=== PATIENT | male | born 1950 | race Two or more races ===

== ENCOUNTER 2023-08-01 14:48 | Emergency (ER) | payer MEDICARE, SELFPAY ==
--- NOTE | ~2023-08-01 | XR_ITS ---
EXAMINATION: XR ABDOMEN KUB CLINICAL INDICATION: Constipation no bowel movement COMPARISON: None available. TECHNIQUE: AP view of the abdomen. FINDINGS: No dilated loops of bowel to suggest obstruction. Mild fecal loading of the sigmoid colon. Degenerative arthropathy of the thoracolumbar and lumbosacral spine as well as bilateral femoral acetabular joints. Visualized portions of the lower chest are unremarkable. Soft tissues are unremarkable. XR/XR abdomen 1V IMPRESSION: 1. No dilated loops of bowel to suggest obstruction. 2. Mild fecal loading of the sigmoid colon.
[2023-08-01 14:57] VITALS: BP 140/89; PULSE 78; RESP 18; TEMP 36.5; O2SAT 99; BMI 23.0
--- NOTE | 2023-08-01 14:57 | ED.GENADULT ---
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 Related Data Previous Rx's Medication Instructions Recorded nitrofurantoin 100 mg PO Q12H 7 days #14 caps 08/01/23 monohydrate/macrocrystals 100 mg capsule (Macrobid) Allergies Allergy/AdvReac Type Severity Reaction Status Date / Time No Known Allergies Allergy Verified 08/01/23 15:00 Review of Systems Review of Systems: Pertinent positives and negatives as stated in [facility] Past Medical History Source: nursing notes reviewed Social History Social History Smoked in Last 30 Days: Yes Use of substances other than those prescribed or required for medical reasons: No Advance Directives: No Advance Directives Information Provided: Yes Physical Exam ED Vital Signs: Vital Signs - 24 hr 08/01/23 14:57 08/01/23 18:43 Temperature 97.7 F 98.3 F Pulse Rate 78 64 Respiratory Rate 18 16 Blood Pressure 140/89 H 175/76 H Pulse Oximetry 99 100 Oxygen Delivery Method Room Air Room Air BMI result Body Mass Index 23.0 VITAL SIGNS: Reviewed. GENERAL: Well developed, well nourished, in no acute distress. HEAD: Normocephalic/atraumatic EYES: PERRLA, EOMI EARS: Ext canals without abnormality NOSE: Nares patent bilateral OROPHARYNX: no oral lesions noted, posterior pharynx clear NECK: Supple, no adenopathy LUNGS: Normal breath sounds. No adventitious sounds or accessory muscle use. SpO2<100> CARDIOVASCULAR: Regular rate and rhythm without noted murmurs ABDOMEN: Soft, suprapubic discomfort, non-distended with bowel sounds. MUSCULOSKELETAL: No tenderness, deformities, or effusions noted on gross inspection. EXTREMITIES: No cyanosis, clubbing or edema. SKIN: Inspection of the skin reveals no rashes NEUROLOGIC: Alert and oriented x 4. Strength and sensation to light touch were grossly intact x 4. Course Course Course Narrative: RME: 72yo M w/PMHx chronic constipation, (noncompliant w/doctors) c/o suprapubic abdominal pain, decreased UOP, urgency & constipation w/o BM x7 days. Admits is not passing. Also reports b/l LE cramping, itching & burning. Denies hematuria, dysuria, N/V. Admits recently moved here from [place] 2 weeks ago BS decreased. Labs, UA, Abdomen XR, bladder scan ordered Full HPI, ROS and PE to be performed by primary ED provider. Medications Administered Discontinued Medications Generic Name Dose Route Start Last Admin Trade Name Freq PRN Reason Stop Dose Admin Nitrofurantoin Macrocrystals 100 mg 08/01/23 19:40 08/01/23 19:51 Nitrofurantoin Monohyd/M-Cryst 100 Mg Capsule PO 08/01/23 19:41 100 mg ONCE ONE Administration Medical Decision Making Medical Decision Making [facility] Narrative: 72-year-old male with history and clinical presentation, DDX: UTI, low clinical suspicion for renal colic or colitis or small bowel obstruction, patient denies any penile discharge so not considering STI and denies any testicular/scrotal pain so no concern at this time for hernia or epididymitis. I reviewed all investigations and hematologic indices are negative for leukocytosis/left shift, no anemia or thrombocytopenia. Chemistry and sees are negative for electrolyte or liver enzyme abnormalities, magnesium is within normal limits and there is no CINDY. Urinalysis demonstrates trace leukocyte esterase and will empirically treat with Macrobid, 1st dose given here in the emergency room and then a paper prescription was provided to the patient for discharge as well as a list of primary care providers. KUB does not indicate obstruction and otherwise my interpretation is in agreement with radiology's impression. Differential Diagnosis Differential Diagnoses: The differential diagnosis associated with the presentation includes Please see the discussion above Admission/Observation Consideration of admission/observation: Escalation of care including admission/observation considered Please see the discussion above Lab Data [facility] Lab Attestation statement: I reviewed the patient's lab results. Please see the discussion above 08/01/23 15:16 08/01/23 15:16 Labs: Lab Results 08/01/23 08/01/23 08/01/23 Range/Units 15:16 15:16 15:16 WBC 7.3 (4.8-10.8) X10*3/uL RBC 4.55 L (4.60-5.80) X10*6/uL Hgb 14.4 (14.0-18.0) g/dl Hct 43.0 (42.0-52.0) % MCV 94.5 (80.0-98.0) fL MCH 31.6 (27.0-33.0) pg MCHC 33.5 (31.0-36.0) g/dl RDW 12.5 (11.0-16.0) % Plt Count 235 (160-400) X10*3/uL MPV 10.1 (9.4-12.4) fL Immature Gran % (Auto) 0.8 H (0.0-0.4) % Neut % (Auto) 64.9 (45-73) % Lymph % (Auto) 21.1 (20-40) % [place] % (Auto) 11.6 H (2-11) % Eos % (Auto) 1.2 (0-4) % Baso % (Auto) 0.4 (0-2) % Lymph # (Auto) 1.5 (1.2-4.9) X10*3/uL [place] # (Auto) 0.8 (0.1-1.2) X10*3/uL Eos # (Auto) 0.1 (0.0-0.4) X10*3/uL Baso # (Auto) 0.0 (0.0-0.2) X10*3/uL Abs Immat Gran (auto) 0.06 H (0.00-0.03) X10*3/uL Absolute Neuts (auto) 4.7 (2.0-8.3) x10*3/uL Absolute Nucleated RBC 0.000 (0.0-0.012) X10*3/uL Nucleated RBC % (auto) 0.0 (0.0-0.2) /100WBC Sodium 140 (135-145) mmol/L Potassium 4.5 (3.3-5.1) mmol/L Chloride 107 (96-108) mmol/L Carbon Dioxide 27 (22-29) mmol/L Anion Gap 11 L (12-20) BUN 18 H (9-16) mg/dL Creatinine 1.04 (0.5-1.4) mg/dL Estim Creat Clear Calc 57.4 Estimated GFR > 60 Random Glucose 81 (60-115) mg/dL Calcium 10.3 H (8.4-10.2) mg/dL Magnesium 2.1 (1.6-2.6) mg/dL Total Bilirubin 0.7 (0.0-1.0) mg/dL Direct Bilirubin 0.2 (0.0-0.5) mg/dL AST 21 (5-37) U/L ALT 18 (0-40) U/L Alkaline Phosphatase 81 (39-117) U/L Total Protein 8.1 H (6.5-8.0) g/dL Albumin 4.4 (3.5-5.0) g/dL Lipase 19 (8-78) U/L Urine Color Dark Yellow Urine Appearance Clear Urine pH 5.5 (5.0-9.0) Ur Specific [place] >= 1.030 H (1.005-1.025) Urine Protein 30 (1+) H (Neg-Trace) mg/dL Urine Glucose (UA) Negative (Negative) mg/dL Urine Ketones Trace (Negative) mg/dL Urine Blood Negative (Negative) Urine Nitrite Negative (Negative) Ur Leukocyte Esterase Trace H (Negative) Urine RBC 0-2 (0-2) /HPF Urine WBC 0-5 (0-5) /HPF Ur Squamous Epith Cells 3-5 (0-2) /HPF Urine Bacteria None Seen (None Seen) Hyaline Casts 3-5 (0-2) /LPF Radiology Impression Discussion of test interpretation with radiology: I have reviewed the radiologist's reading. Radiologist Impression: Please see the discussion above Discharge Plan Discharge Clinical Impression: Acute UTI Patient Disposition: Home, Self-Care Instructions: Urinary Tract Infection in Men (ED) Additional Instructions: 1. Complete todo el ciclo de antibi?ticos seg?n lo indicado. 2. Comience a llamar a los m?dicos para establecer la atenci?n con un proveedor de atenci?n primaria a partir del por la ma?shirley. Regrese a la jose juan de emergencias si los s?ntomas empeoran. 1. Complete the entire course of antibiotics as ordered. 2. Please begin calling physicians to establish care with a primary care provider starting on Thursday morning. Return to the ER for any worsening symptoms. Prescriptions: New nitrofurantoin monohyd/m-cryst [Macrobid] 100 mg capsule 100 mg PO Q12H 7 Days Qty: 14 0RF Rx Instructions: must administer with a meal/food Interventions: ED Discharge Assessment Last Done: 08/01/23 19:52 Discharge Date/Time: 08/01/23 19:56 Print Language: Armenian
[2023-08-01 15:22] LABS: MANUAL DIFF FLAG NO
[2023-08-01 15:24] LABS: Appearance Urine Clear; Color Urine Dark Yellow; Glucose Urine UA Negative (Negative); Leukocyte Esterase Urine Trace (Negative); Nitrite Urine Negative (Negative); PH 5.5 (5.0-9.0); Specific Gravity - Urine >= 1.030 (1.005-1.025); UMIC TRIGGER UACC YES; Urine Blood Negative (Negative); Urine Ketones Trace mg/dL (Negative); Urine Protein 30 (1+) mg/dL (Neg-Trace)
[2023-08-01 15:26] LABS: Bacteria Urine None Seen (None Seen); Basophils Percent Auto 0.4 % (0-2); Eosinophils Absolute Auto 0.1 X10*3/uL (0.0-0.4); Eosinophils Percent Auto 1.2 % (0-4); Hemoglobin 14.4 g/dl (14.0-18.0); Imm Gran Abs Auto 0.06 X10*3/uL (0.00-0.03); Imm Gran Pct Auto 0.8 % (0.0-0.4); Lymphocytes Absolute Auto 1.5 X10*3/uL (1.2-4.9); Lymphocytes Percent Auto 21.1 % (20-40); Mean Corpuscular HGB Conc 33.5 g/dl (31.0-36.0); Mean Corpuscular Hemoglobin 31.6 pg (27.0-33.0); Mean Corpuscular Volume 94.5 fL (80.0-98.0); Mean Platelet Volume 10.1 fL (9.4-12.4); Monocytes Absolute Auto 0.8 X10*3/uL (0.1-1.2); Monocytes Percent Auto 11.6 % (2-11); Neutrophils Absolute Auto 4.7 x10*3/uL (2.0-8.3); Neutrophils Percent Auto 64.9 % (45-73); Platelet Count 235 X10*3/uL (160-400); RBC Urine 0-2 /HPF (0-2); Red Blood Count 4.55 X10*6/uL (4.60-5.80); Red Cell Distribution Width 12.5 % (11.0-16.0); WBC Urine 0-5 /HPF (0-5); White Blood Count 7.3 X10*3/uL (4.8-10.8)
[2023-08-01 15:41] LABS: Alanine Aminotransferase 18 U/L (0-40); Albumin Level 4.4 g/dL (3.5-5.0); Alkaline Phosphatase 81 U/L (39-117); Anion Gap 11 (12-20); Aspartate Amino Transferase 21 U/L (5-37); Bilirubin Direct 0.2 mg/dL (0.0-0.5); Bilirubin Total 0.7 mg/dL (0.0-1.0); Blood Urea Nitrogen 18 mg/dL (9-16); Calcium 10.3 mg/dL (8.4-10.2); Carbon Dioxide 27 mmol/L (22-29); Chloride 107 mmol/L (96-108); Creatinine Clr Calc Pharmacy 57.4; Estimated Glomerular Filt Rate > 60; Glucose Random 81 mg/dL (60-115); Lipase 19 U/L (8-78); Magnesium 2.1 mg/dL (1.6-2.6); Potassium 4.5 mmol/L (3.3-5.1); Sodium 140 mmol/L (135-145); Total Protein 8.1 g/dL (6.5-8.0)
[2023-08-01 18:43] VITALS: BP 175/76; PULSE 64; RESP 16; TEMP 36.8; O2SAT 100
[2023-08-01] MEDS: Nitrofurantoin Monohyd/M-Cryst 100 MG CAPSULE PO (19:51)
== END 2023-08-01 19:56 | disposition home or self-care (01) ==
PROVIDERS: Physician Assistant; Emergency Provider Student in an Organized Health Care Education/Training Program
DX: N39.0 Urinary tract infection, site not specified (principal); R10.30 Lower abdominal pain, unspecified
CPT/HCPCS: 36415; 51798; 74018; 80048; 80076; 81001; 83690; 83735; 85025; 99284

== ENCOUNTER 2024-06-05 15:04 | Emergency (ER) | payer MEDICARE, MEDICAID, SELFPAY ==
--- NOTE | ~2024-06-05 | US_ITS ---
EXAMINATION: US VENOUS ULTRASOUND WITH DOPPLER LOWER EXTREMITY, BILATERAL CLINICAL INFORMATION: lower leg pain, swelling COMPARISON: None available. TECHNIQUE: Ultrasound of the deep veins is performed from the hip to the calf with compression sonography and color and pulse Doppler assessment. Spectral analysis with color-flow imaging is performed. FINDINGS: RIGHT: There is normal venous compression and respiratory variation and augmented flow. The visualized common femoral vein, superficial femoral vein, profunda femoral vein, popliteal vein, and the trifurcation region shows no evidence of deep venous thrombosis. There is no significant popliteal fossa cyst. LEFT: There is normal venous compression and respiratory variation and augmented flow. The visualized common femoral vein, superficial femoral vein, profunda femoral vein, popliteal vein, and the trifurcation region shows no evidence of deep venous thrombosis. There is no significant popliteal fossa cyst. If the patient's symptoms persist, followup ultrasound in 5 days 7 days might be of value to exclude proximal propagation from a non-visualized calf vein. US/US venous duplex LE BI IMPRESSION: No DVT demonstrated in the bilateral lower extremity.
--- NOTE | 2024-06-05 15:06 | ECG_ITS ---
Test Reason : CHEST PAIN Blood Pressure : / mmHG Vent. Rate : 088 BPM Atrial Rate : 088 BPM P-R Int : 130 ms QRS Dur : 084 ms QT Int : 356 ms P-R-T Axes : 054 021 057 degrees QTc Int : 430 ms Normal sinus rhythm Normal ECG No previous ECGs available Referred By: Generic ED Physician Electronically Signed By:Trae Baldwin
[2024-06-05 15:13] VITALS: BP 139/68; PULSE 82; RESP 18; TEMP 37.2; O2SAT 96; BMI 23.3
[2024-06-05 15:25] LABS: MANUAL DIFF FLAG NO
[2024-06-05 15:28] LABS: Basophils Percent Auto 0.5 % (0-2); Eosinophils Absolute Auto 0.1 X10*3/uL (0.0-0.4); Eosinophils Percent Auto 1.4 % (0-4); Hematocrit 41.4 % (42.0-52.0); Hemoglobin 13.9 g/dl (14.0-18.0); Imm Gran Abs Auto 0.04 X10*3/uL (0.00-0.03); Imm Gran Pct Auto 0.6 % (0.0-0.4); Lymphocytes Percent Auto 30.6 % (20-40); Mean Corpuscular HGB Conc 33.6 g/dl (31.0-36.0); Mean Corpuscular Hemoglobin 31.1 pg (27.0-33.0); Mean Corpuscular Volume 92.6 fL (80.0-98.0); Mean Platelet Volume 10.1 fL (9.4-12.4); Monocytes Absolute Auto 0.5 X10*3/uL (0.1-1.2); Monocytes Percent Auto 7.7 % (2-11); Neutrophils Absolute Auto 3.9 x10*3/uL (2.0-8.3); Neutrophils Percent Auto 59.2 % (45-73); Platelet Count 214 X10*3/uL (160-400); Red Blood Count 4.47 X10*6/uL (4.60-5.80); Red Cell Distribution Width 12.8 % (11.0-16.0); White Blood Count 6.6 X10*3/uL (4.8-10.8)
[2024-06-05 15:34] LABS: INTERNATIONAL NORM RATIO 0.9 (0.9-1.1); Prothrombin Time 11.3 SEC (11.1-13.3)
--- NOTE | 2024-06-05 15:34 | ED_ITS ---
HPI - Chest Pain General Chief Complaint: Chest Pain Stated Complaint: Chest pain Time Seen by Provider: 06/05/24 15:34 Source: patient and sign language interpreter (all interactions with this patient were facilitated with an [facility] [employer] interpreter) Mode of arrival: ambulatory Limitations: language barrier (all interactions with this patient were facilitated with an [facility] [employer] interpreter) History of Present Illness ED Provider: Maureen Medellin PA-C HPI narrative: Patient is a 73 year old assigned male at with a history of tobacco smoking presenting to the emergency department today with midsternal chest pain, bilateral lower leg pain when walking, and urine dribbling. Patient states that over the last few days he has had intermittent chest pain. Patient states that his legs have been bother him for months. Patient states that he also has been having some urine dribbling even after he urinates. Patient denies any dizziness, lightheadedness, abdominal pain, nausea, vomiting, fever, chills, blurry vision, double vision, loss of vision, difficulty breathing, shortness of breath, back pain, night sweats, pain with urination, increased urinary urgency, blood in his urine or stool, syncope or a near syncopal episode, recent trauma or falls, bowel incontinence, bladder incontinence, or any other complaints at this time. MD complaint: chest pain Related Data Previous Rx's ?Medication ?Instructions ?Recorded nitrofurantoin 100 mg PO Q12H 7 days #14 caps 08/01/23 monohydrate/macrocrystals 100 mg capsule (Macrobid) Allergies Allergy/AdvReac Type Severity Reaction Status Date / Time No Known Allergies Allergy Verified 06/05/24 15:15 Review of Systems 2 Constitutional: Constitutional: Reports no additional constitutional complaints, Denies chills, Denies fever(s) and Denies night sweats Eyes: Eyes: Reports no additional eye complaints, Denies blurry vision, Denies change in vision, Denies diplopia, Denies eye discharge, Denies loss of vision and Denies eye pain ENT: Denies dizziness Cardiovascular: Cardiovascular: Reports no additional cardiovascular complaints, Reports chest pain, Denies lightheadedness, Denies Loss of Consciousness and Denies dyspnea Respiratory: Respiratory: Reports no additional respiratory complaints and Denies dyspnea Gastrointestinal: Gastrointestinal: Reports no additional gastrointestinal complaints, Denies abdominal pain, Denies melena, Denies hematochezia, Denies change in bowel habits and Denies change in stool character Genitourinary: Genitourinary: Reports no additional male genitourinary complaints, Denies hematuria, Denies oliguria, Denies difficulty urinating, Denies dysuria, Denies urinary hesitancy, Denies urinary incontinence and Denies urinary urgency Comments: urine dribbling post void Musculoskeletal: Musculoskeletal: Reports no additional musculoskeletal complaints, Denies numbness and Denies tingling Comments: bilateral lower leg pain with walking Neurologic: Denies dizziness, Denies loss of vision, Denies numbness and Denies tingling Psychiatric: Psychiatric: Reports no additional psychiatric complaints Endocrine: Endocrine: Reports no additional endocrine complaints Hematologic/Lymphatic: Hematologic/Lymphatic: Reports no additional hematologic/lymphatic complaints Allergic/Immunologic: Allergic/Immunologic: Reports no additional allergic/immunologic complaints PMFSH Past Medical History Attestation statement: The following information was validated with the patient. Source: old records reviewed and nursing notes reviewed Social History Social History Smoked in Last 30 Days: No Use of substances other than those prescribed or required for medical reasons: No Advance Directives: No Advance Directives Information Provided: No Do you have a plan to hurt others: No Plan Physical Exam 2 Vital Signs: Vital Signs: Last Vital Signs Temp 98.7 F 06/05/24 18:58 Pulse 68 06/05/24 18:58 Resp 18 06/05/24 18:58 BP 163/75 H 06/05/24 18:58 Pulse Ox 100 06/05/24 18:58 O2 Del Method Room Air 06/05/24 18:58 BMI result Body Mass Index 23.3 Const: General: cooperative, no acute distress, alert and awake Nutritional Appearance: well nourished Orientation/consciousness: patient oriented x3 Limitations: no limitations HEENT: Head: Yes normal to inspection and Yes atraumatic Ears: hearing grossly normal bilaterally and external ears normal General nose exam: Normal external nose present, no nasal discharge noted and no epistaxis Face and sinus: Yes normal facial exam, No abrasion and No laceration Mouth: Normal oral and palatal mucosa present, no drooling and no muffled voice Eyes: General: appearance normal, both eyes and all related structures P eriorbital: periorbital findings normal Eyelids: Yes eyelids normal C onjunctivae: conjunctivae normal Pupils: Equal, round and reactive pupils present EOM: EOMs intact bilaterally Neck: Neck: Yes normal visual inspection, Yes full ROM and Yes no lymphadenopathy Chest: Chest palpation & inspection: normal inspection of the chest Resp: Effort & Inspection: normal respiratory effort and able to speak in complete sentences GI: Inspection: Yes normal to inspection Neuro: General: patient oriented x3 and moves all extremities Cranial nerves: Yes Equal, round and reactive pupils present Cognition (Neuro): n ormal cognition Extrem: General: Yes normal to inspection, Yes full ROM and Yes capillary refill normal Psych: Appearance: grossly normal Mental Status: mental status grossly normal Affect: normal affect Attitude: cooperative Thought process: N ormal thought process present Thought content: Normal thought content present Insight: Good insight present (Psych) Medical Decision Making Medical Decision Making [facility] Narrative: Patient is a 73 year old assigned male at with no reported medical history presenting to the emergency department today with chest pain and bilateral lower leg pain. Patient's physical exam was unremarkable. Patient's blood work was unremarkable. Patient's urine showed no acute process. Patient's EKG was unremarkable. Patient's bilateral lower leg US showed no acute process. I explained my physical exam findings as well as all test results to the patient. I answered all questions asked by the patient. I stressed the importance of the patient taking his medication as directed (either prescribed or as the over the counter packaging recommends). I stressed the importance of the patient following up with his primary care provider. I stressed the importance of the patient returning to the emergency department immediately if his symptoms were to worsen or if he were to develop any dizziness, shortness of breath, difficulty breathing, chest pain, blurry vision, loss of vision, nausea, vomiting, abdominal pain, fever, chills, back pain, or any other complaints. Patient verbalized agreement and understanding with this treatment plan and discharge. Differential Diagnosis Differential Diagnoses: The differential diagnosis associated with the presentation includes Chest pain NSTEMI STEMI DVT Claudication PVD PAD Admission/Observation Consideration of admission/observation: Escalation of care including admission/observation considered Patient would have been admitted to the hospital had his work up had any findings where hospital admission was appropriate and his clinical presentation warranted hospital admission. Lab Data [facility] Lab Attestation statement: I reviewed the patient's lab results. My interpretation of these results are in the [facility] Rationale portion of this note. 06/05/24 15:20 06/05/24 15:20 Labs: Lab Results 06/05/24 06/05/24 Range/Units 15:20 15:35 WBC 6.6 (4.8-10.8) X10*3/uL RBC 4.47 L (4.60-5.80) X10*6/uL Hgb 13.9 L (14.0-18.0) g/dl Hct 41.4 L (42.0-52.0) % MCV 92.6 (80.0-98.0) fL MCH 31.1 (27.0-33.0) pg MCHC 33.6 (31.0-36.0) g/dl RDW 12.8 (11.0-16.0) % Plt Count 214 (160-400) X10*3/uL MPV 10.1 (9.4-12.4) fL Immature Gran % (Auto) 0.6 H (0.0-0.4) % Neut % (Auto) 59.2 (45-73) % Lymph % (Auto) 30.6 (20-40) % [place] % (Auto) 7.7 (2-11) % Eos % (Auto) 1.4 (0-4) % Baso % (Auto) 0.5 (0-2) % Lymph # (Auto) 2.0 (1.2-4.9) X10*3/uL [place] # (Auto) 0.5 (0.1-1.2) X10*3/uL Eos # (Auto) 0.1 (0.0-0.4) X10*3/uL Baso # (Auto) 0.0 (0.0-0.2) X10*3/uL Abs Immat Gran (auto) 0.04 H (0.00-0.03) X10*3/uL Absolute Neuts (auto) 3.9 (2.0-8.3) x10*3/uL Absolute Nucleated RBC 0.000 (0.0-0.012) X10*3/uL Nucleated RBC % (auto) 0.0 (0.0-0.2) /100WBC PT 11.3 (11.1-13.3) SEC INR 0.9 (0.9-1.1) Sodium 142 (135-145) mmol/L Potassium 4.5 (3.3-5.1) mmol/L Chloride 107 (96-108) mmol/L Carbon Dioxide 26 (22-29) mmol/L Anion Gap 14 (12-20) BUN 16 (9-16) mg/dL Creatinine 1.15 (0.5-1.4) mg/dL Estim Creat Clear Calc 51.2 Estimated GFR > 60 Random Glucose 120 H (60-115) mg/dL Calcium 9.4 D (8.4-10.2) mg/dL Total Bilirubin 0.5 (0.0-1.0) mg/dL AST 16 (5-37) U/L ALT 13 (0-40) U/L Alkaline Phosphatase 75 (39-117) U/L Troponin I High Sens < 2.7 (<3.5-35.0) ng/L Total Protein 7.4 (6.5-8.0) g/dL Albumin 4.0 (3.5-5.0) g/dL Urine Color Yellow Urine Appearance Clear Urine pH 6.0 (5.0-9.0) Ur Specific [place] 1.020 (1.005-1.025) Urine Protein Trace (Neg-Trace) mg/dL Urine Glucose (UA) Negative (Negative) mg/dL Urine Ketones Negative (Negative) mg/dL Urine Blood Negative (Negative) Urine Nitrite Negative (Negative) Ur Leukocyte Esterase Trace H (Negative) Urine RBC 0-2 (0-2) /HPF Urine WBC 0-5 (0-5) /HPF Ur Squamous Epith Cells 0-2 (0-2) /HPF Urine Bacteria None Seen (None Seen) Hyaline Casts 0-2 (0-2) /LPF Independent Interpretation I performed an independent interpretation of an: EKG, Plain X-Ray and Ultrasound Interpretation: My interpretation is in agreement with the radiologist's impression of this imaging study. - EXAMINATION: US VENOUS ULTRASOUND WITH DOPPLER LOWER EXTREMITY, BILATERAL CLINICAL INFORMATION: lower leg pain, swelling COMPARISON: None available. TECHNIQUE: Ultrasound of the deep veins is performed from the hip to the calf with compression sonography and color and pulse Doppler assessment. Spectral analysis with color-flow imaging is performed. FINDINGS: RIGHT: There is normal venous compression and respiratory variation and augmented flow. The visualized common femoral vein, superficial femoral vein, profunda femoral vein, popliteal vein, and the trifurcation region shows no evidence of deep venous thrombosis. There is no significant popliteal fossa cyst. LEFT: There is normal venous compression and respiratory variation and augmented flow. The visualized common femoral vein, superficial femoral vein, profunda femoral vein, popliteal vein, and the trifurcation region shows no evidence of deep venous thrombosis. There is no significant popliteal fossa cyst. If the patient's symptoms persist, followup ultrasound in 5 days 7 days might be of value to exclude proximal propagation from a non-visualized calf vein. US/US venous duplex LE BI IMPRESSION: No DVT demonstrated in the bilateral lower extremity. Dictated By: Dot English Signed By: Electronically signed by Dot English 06/05/24 1809 - Vent. Rate: 088 BPM Atrial Rate: 088 BPM P-R Int: 130 ms QRS Dur: 084 ms QT Int: 356 ms P-R-T Axes: 054 021 057 degrees QTc Int: 430 ms Normal sinus rhythm Normal ECG No previous ECGs available DD/ 1505 Radiology Impression Discussion of test interpretation with radiology: I have reviewed the radiologist's reading. Scores Heart Score History: -0- slightly suspicious ECG: -0- normal Age: -2- > or = 65 Risk factory: -0- no risk factors known Troponin: -0- < or = normal limit Score: 2 Risk: 1.7% Discharge Plan Discharge Clinical Impression: Atypical chest pain, Lower extremity pain Patient Disposition: Home, Self-Care Instructions: Chest Pain (DC), Leg Pain (ED) Additional Instructions: Follow up with your primary care provider. Return to the emergency department immediately if your symptoms worsen or if you develop any dizziness, shortness of breath, difficulty breathing, chest pain, blurry vision, loss of vision, nausea, vomiting, abdominal pain, fever, chills, back pain, or any other complaints. Kane?seguimiento?con velasquez m?dico de atenci?n primaria. Acuda inmediatamente al servicio de urgencias si rosamaria s?ntomas empeoran o si presenta falta de aliento, dificultad para respirar, dolor tor?cico, mareos, aturdimiento, dolor de espalda, dolor abdominal, fiebre, escalofr?os o cualquier otro s?ntoma. Prescriptions: No Action nitrofurantoin monohyd/m-cryst [Macrobid] 100 mg capsule 100 mg PO Q12H 7 Days Qty: 14 0RF Rx Instructions: must administer with a meal/food Referrals: [facility] [place] Group] (Call to establish and follow up with a primary care provider. If you already have a primary care provider, please follow up with them.) [facility] [place] [facility] [Provider Group] [facility] [place] [facility] [Provider Group] Interventions: ED Discharge Assessment Last Done: 06/05/24 18:58 Discharge Date/Time: 06/05/24 18:59 Print Language: Swedish
--- NOTE | 2024-06-05 15:39 | PC.NURSE ---
pt ambulated to the restroom w/ strong/independent gait. no use of assistive devices noted. UA obtained/sent to lab.
[2024-06-05 15:40] LABS: Appearance Urine Clear; Color Urine Yellow; Glucose Urine UA Negative (Negative); Leukocyte Esterase Urine Trace (Negative); Nitrite Urine Negative (Negative); UMIC TRIGGER UACC YES; Urine Blood Negative (Negative); Urine Ketones Negative (Negative); Urine Protein Trace mg/dL (Neg-Trace)
[2024-06-05 15:42] LABS: Alanine Aminotransferase 13 U/L (0-40); Alkaline Phosphatase 75 U/L (39-117); Anion Gap 14 (12-20); Aspartate Amino Transferase 16 U/L (5-37); Bilirubin Total 0.5 mg/dL (0.0-1.0); Blood Urea Nitrogen 16 mg/dL (9-16); Calcium 9.4 mg/dL (8.4-10.2); Carbon Dioxide 26 mmol/L (22-29); Chloride 107 mmol/L (96-108); Creatinine Clr Calc Pharmacy 51.2; Estimated Glomerular Filt Rate > 60; Glucose Random 120 mg/dL (60-115); Potassium 4.5 mmol/L (3.3-5.1); Sodium 142 mmol/L (135-145); Total Protein 7.4 g/dL (6.5-8.0)
[2024-06-05 15:42] LABS: Bacteria Urine None Seen (None Seen); Hyaline Casts Urine 0-2 /LPF (0-2); RBC Urine 0-2 /HPF (0-2); Squamous Epithelial Cell Urine 0-2 /HPF (0-2); WBC Urine 0-5 /HPF (0-5)
[2024-06-05 15:49] LABS: Troponin-I High Sensitivity < 2.7 ng/L (<3.5-35.0)
--- NOTE | 2024-06-05 16:06 | PC.NURSE ---
bladder scan performed s/p voiding - 16ml displayed in bladder scan. provider notified/aware.
--- NOTE | 2024-06-05 17:34 | PC.NURSE ---
ultrasound being completed at this time.
[2024-06-05 18:28] VITALS: BP 163/75; PULSE 68; RESP 18; TEMP 37.1; O2SAT 100
[2024-06-05 18:58] VITALS: BP 163/75; PULSE 68; RESP 18; TEMP 37.1; O2SAT 100
== END 2024-06-05 18:59 | disposition home or self-care (01) ==
PROVIDERS: Emergency Provider Emergency Medicine
DX: R07.9 Chest pain, unspecified (principal); M79.605 Pain in left leg; M79.604 Pain in right leg; N39.43 Post-void dribbling
CPT/HCPCS: 36415; 51798; 80053; 81001; 84484; 85025; 85610; 93005; 93970; 99284; 99285

== ENCOUNTER → 2024-06-05 15:06 | Outpatient (BNV) | payer MEDICARE, MEDICAID, SELFPAY | PROVIDERS: Emergency Provider Emergency Medicine; Visit Provider Internal Medicine Cardiovascular Disease | DX: R07.9 Chest pain, unspecified (principal) | CPT/HCPCS: 93010 ==

== ENCOUNTER 2024-10-09 12:33 | Inpatient (IN) | payer MEDICARE, MEDICAID, SELFPAY ==
--- NOTE | ~2024-10-09 | CT_ITS ---
EXAMINATION: CT HEAD WITHOUT CONTRAST (STROKE PROTOCOL) CLINICAL INFORMATION: Left-sided weakness. Ataxia. Dizziness. COMPARISON: None available. TECHNIQUE: Contiguous axial imaging was performed from the skull base to vertex without intravenous administration of contrast. This CT examination was performed using dose optimization techniques as appropriate, variously including the following: *Automated exposure control *Adjustment of mA and/or kV according to patient size (this includes techniques or standardized protocols for targeted exams where dose is matched to indication/reason for exam; i.e. extremities or head) *Use of iterative reconstruction technique DLP: 741 mGy-cm FINDINGS: There is loss of diallo-white distinction at the medial aspect of the high right frontoparietal region (image 25, series 5). Bilateral patchy chronic periventricular white matter ischemic changes are present. No intracranial hemorrhage or mass lesion is seen. No extra-axial collection is appreciated. The ventricles are normal in size and configuration without evidence of hydrocephalus. The visualized paranasal sinuses and mastoid air cells are clear. Mild deviation of the nasal septum toward the right. CT/CT head for stroke IMPRESSION: Loss of diallo-white distinction at the medial aspect of the high right frontoparietal region, suggesting age indeterminate infarct. Bilateral patchy chronic periventricular white matter ischemic changes. KATERINE Sloan was directly informed of the findings by telephone at approximately 12:40 PM on October 10, 2024. Electronically signed by: Joe Aranda MD 10/10/2024 12:41 PM [facility] [place]
--- NOTE | ~2024-10-09 | MR_ITS ---
EXAMINATION: MR BRAIN WITHOUT CONTRAST CLINICAL INFORMATION: Left-sided hemiparesis, ataxia, dizziness COMPARISON: CT scan of brain on 10/10/2024 TECHNIQUE: MRI of the brain was obtained using routine sequences without contrast. FINDINGS: Ventricles, sulci and cisterns are dilated. Patchy and multifocal T2 hyperintense lesions are seen in bilateral frontal and parietal subcortical and deep white matters. Multifocal acute cerebral infarctions with restriction in diffusion, with mild T2 FLAIR hyperintensity are seen in right parasagittal anterior frontal lobe directly anterior to the right lateral ventricle. Patchy and multifocal acute infarctions with restriction in diffusion with marked T2 FLAIR hyperintensity are seen in right frontal parietal junction.. Chronic lacunar infarct with T1 and T2 FLAIR signal hypointensity is seen in right anterior lateral frontal deep white matter. No focal brainstem or cerebellar lesions with abnormal signal can be seen. Normal flow voids of major intracerebral blood vessels are seen in the visualized portion. The pituitary gland is normal. Optic chiasm is not displaced. Cerebellar tonsils position is normal. MR/MR head/brain wo con IMPRESSION: 1. Findings confirm the presence of acute cerebral infarctions in anterior right parasagittal frontal lobe and right parasagittal frontal parietal junction, estimated to be 1 5 hours and 2 weeks of age. The right anterior frontal infarcts appear to be more acute. 2. Chronic lacunar infarct is seen in anterior lateral right frontal deep white matter. 3. 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 4. No evidence of space occupying mass lesion could be found. 5. No evidence of intracranial hemorrhage. Electronically signed by: Anushka Trujillo MD 10/10/2024 02:51 PM EST
--- NOTE | ~2024-10-09 | CT_ITS ---
EXAMINATION: CT HEAD WITHOUT CONTRAST CLINICAL INFORMATION: Worsening right-sided weakness COMPARISON: CT dated October 10, 2024. TECHNIQUE: Contiguous axial imaging was performed from the skull base to vertex without intravenous administration of contrast. This CT examination was performed using dose optimization techniques as appropriate, variously including the following: *Automated exposure control *Adjustment of mA and/or kV according to patient size (this includes techniques or standardized protocols for targeted exams where dose is matched to indication/reason for exam; i.e. extremities or head) *Use of iterative reconstruction technique DLP: 863 mGy-cm FINDINGS: Focal hypodensity involving the right cingulate gyrus. No hemorrhagic component. Mass effect upon the right frontal horn lateral ventricle. No midline shift, hydrocephalus or herniation. No other change. CT/CT head/brain wo IV con IMPRESSION: No hemorrhagic transformation. Acute nonhemorrhagic stroke/ischemia, right CRISSY territory Electronically signed by: Domingo Garrison MD 10/13/2024 11:47 AM EST
--- NOTE | ~2024-10-09 | CT_ITS ---
EXAMINATION: CT HEAD WITHOUT CONTRAST CLINICAL INFORMATION: Dizziness headache COMPARISON: None TECHNIQUE: Contiguous axial imaging was performed from the skull base to vertex without intravenous administration of contrast. This CT examination was performed using dose optimization techniques as appropriate, variously including the following: *Automated exposure control *Adjustment of mA and/or kV according to patient size (this includes techniques or standardized protocols for targeted exams where dose is matched to indication/reason for exam; i.e. extremities or head) *Use of iterative reconstruction technique DLP: 633.49 mGy-cm FINDINGS: There is no evidence of acute intracranial hemorrhage or territorial infarction. Chronic white matter small vessels ischemic changes. No abnormal mass effect or midline shift is seen. Das to white matter differentiation is well preserved. No extra-axial fluid collections are identified. The ventricles are normal in size. There is no abnormal attenuation within the brain parenchyma. The osseous structures and soft tissues are normal. The mastoid air cells and visualized portions of the paranasal sinuses are well aerated. CT/CT head/brain wo IV con IMPRESSION: 1. No acute intracranial pathology. 2. Chronic white matter small vessels ischemic changes. EXAMINATION: Noncontrast CT scan of the cervical spine. INDICATION: Dizziness headaches COMPARISON: None. TECHNIQUE: Helical, multidetector axial images were obtained from the occiput to the upper thorax. Coronal and sagittal reformats of the cervical spine were provided for interpretation. DLP: 374.66 mGy-cm FINDINGS: No acute fractures or dislocations of the cervical spine are seen. Straightening of normal cervical curvature. Multilevel degenerative changes. Grade 1 anterolisthesis of C7 on T1. Anatomic alignment and positioning of the vertebral bodies and posterior elements is noted. The atlantoaxial joint and craniovertebral articulations are normal without evidence of subluxation. There is no prevertebral soft tissue swelling. The thyroid gland and visualized portions of the lung apices and mediastinum are unremarkable. IMPRESSION: 1. No acute visible fracture or dislocation. 2. Straightening of normal cervical curvature. 3. Multilevel degenerative changes. Grade 1 anterolisthesis of C7 on T1. Electronically signed by: Anaya Saravia MD 10/09/2024 03:[address] [facility] [place]
--- NOTE | ~2024-10-09 | CT_ITS ---
EXAMINATION: CT HEAD WITHOUT CONTRAST CLINICAL INFORMATION: Dizziness headache COMPARISON: None TECHNIQUE: Contiguous axial imaging was performed from the skull base to vertex without intravenous administration of contrast. This CT examination was performed using dose optimization techniques as appropriate, variously including the following: *Automated exposure control *Adjustment of mA and/or kV according to patient size (this includes techniques or standardized protocols for targeted exams where dose is matched to indication/reason for exam; i.e. extremities or head) *Use of iterative reconstruction technique DLP: 633.49 mGy-cm FINDINGS: There is no evidence of acute intracranial hemorrhage or territorial infarction. Chronic white matter small vessels ischemic changes. No abnormal mass effect or midline shift is seen. Das to white matter differentiation is well preserved. No extra-axial fluid collections are identified. The ventricles are normal in size. There is no abnormal attenuation within the brain parenchyma. The osseous structures and soft tissues are normal. The mastoid air cells and visualized portions of the paranasal sinuses are well aerated. CT/CT cervical spine wo IV con IMPRESSION: 1. No acute intracranial pathology. 2. Chronic white matter small vessels ischemic changes. EXAMINATION: Noncontrast CT scan of the cervical spine. INDICATION: Dizziness headaches COMPARISON: None. TECHNIQUE: Helical, multidetector axial images were obtained from the occiput to the upper thorax. Coronal and sagittal reformats of the cervical spine were provided for interpretation. DLP: 374.66 mGy-cm FINDINGS: No acute fractures or dislocations of the cervical spine are seen. Straightening of normal cervical curvature. Multilevel degenerative changes. Grade 1 anterolisthesis of C7 on T1. Anatomic alignment and positioning of the vertebral bodies and posterior elements is noted. The atlantoaxial joint and craniovertebral articulations are normal without evidence of subluxation. There is no prevertebral soft tissue swelling. The thyroid gland and visualized portions of the lung apices and mediastinum are unremarkable. IMPRESSION: 1. No acute visible fracture or dislocation. 2. Straightening of normal cervical curvature. 3. Multilevel degenerative changes. Grade 1 anterolisthesis of C7 on T1. Electronically signed by: Anaya Saravia MD 10/09/2024 03:19 PM [facility] [place]
--- NOTE | ~2024-10-09 | CT_ITS ---
EXAMINATION: CT brain. CLINICAL INFORMATION: Cerebrovascular disease. Left hemiparesis, ataxia, dizziness COMPARISON: Noncontrast CT scan of brain on 10/10/2024 TECHNIQUE: Multiple axial images were obtained from base of skull to the vertex with IV contrast enhancement. Coronal and sagittal images of the brain were reconstructed from the axial image data. This CT examination was performed using dose optimization techniques as appropriate, variously including the following: *Automated exposure control *Adjustment of mA and/or kV according to patient size (this includes techniques or standardized protocols for targeted exams where dose is matched to indication/reason for exam; i.e. extremities or head) *Use of iterative reconstruction technique DLP: 1530 mGy-cm FINDINGS: Ventricles, sulci and cisterns are dilated. Bilateral frontal and parietal deep white matters show patchy decrease in attenuation. Chronic lacunar infarct is seen in lateral superior right frontal deep white matter.. Low-attenuation right parasagittal frontal parietal junction lesion is again visualized. Additional low-attenuation lesion is seen in right medial frontal deep white matter directly anterior to the right lateral ventricle. There is no midline shift, no abnormal intra- or extra- axial fluid accumulation. Das and white matter differentiation is normal. Postcontrast images show normal enhancement of major intracerebral blood vessels. No enhancing intracranial mass lesion or abnormal meningeal enhancement is seen. Bone window images show no evidence of skull fracture. CT/CT angio head neck stroke IMPRESSION: 1. 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 2. No intracranial hemorrhage or skull fracture is seen. 3. No evidence of space occupying or enhancing intracranial mass lesion could be found. 4. Persistent suspicious relatively acute cerebral infarctions in medial right frontal lobe anterior to the right lateral ventricle and right parasagittal frontal parietal junction.. EXAMINATION: CT angiogram of brain. CLINICAL INFORMATION: Cerebral vascular disease. Left hemiparesis, ataxia, dizziness COMPARISON: None available. TECHNIQUE: CT angiogram of the brain was performed C7 following the administration of 70 mL of Omnipaque 350. Coronal and sagittal images were reconstructed from axial image data. 3-dimensional volumetric maximum intensity projection images in multiple planes were reconstructed on an independent workstation. This was performed under concurrent direct supervision and monitoring by radiologist. Reformatted maximum intensity projection angiographic images of the brain were reconstructed on an independent workstation. This CT examination was performed using dose optimization techniques as appropriate, variously including the following: *Automated exposure control *Adjustment of mA and/or kV according to patient size (this includes techniques or standardized protocols for targeted exams where dose is matched to indication/reason for exam; i.e. extremities or head) *Use of iterative reconstruction technique DLP: 1530 mGy-cm FINDINGS: There is normal visualization of bilateral anterior, middle and posterior cerebral arteries, internal carotid arteries, basilar artery and terminal portions of bilateral vertebral arteries. Anterior communicating artery is normal. Bilateral posterior communicating arteries are normal. There is a short segment of 58.6% stenosis in mid M1 segment of left middle cerebral artery for a length of 0.45 cm. The right anterior cerebral artery is asymmetrically small in caliber with decreased contrast filling starting from A3 segment. Bilateral internal carotid siphons are smoothly patent. Focal atherosclerotic calcifications are present without causing hemodynamically significant stenosis. Timing of the bolus allows assessment of the major dural venous sinuses. The major cerebral venous sinuses show normal contrast filling. IMPRESSION: 1. Short segment narrowing is seen in mid M1 segment of the left middle cerebral artery. 2. Asymmetrically smaller caliber with decreased contrast enhancement is seen in right anterior cerebral artery starting from A3 segment.. EXAMINATION: CT angiogram of neck. CLINICAL INFORMATION: Cerebral vascular disease, Left hemiparesis, ataxia, dizziness. COMPARISON: None available. TECHNIQUE: Contrast enhanced CT angiogram of the neck and superior mediastinum was performed following the administration of 70 mL of Omnipaque 350. 3-dimensional volumetric maximum intensity projection images in multiple planes were reconstructed on an independent workstation. This was performed under concurrent direct supervision and monitoring by radiologist. Reformatted maximum intensity projection angiographic images of the neck and superior mediastinum were reconstructed on an independent workstation. Magnified images of carotid bifurcations were reconstructed. This CT examination was performed using dose optimization techniques as appropriate, variously including the following: *Automated exposure control *Adjustment of mA and/or kV according to patient size (this includes techniques or standardized protocols for targeted exams where dose is matched to indication/reason for exam; i.e. extremities or head) *Use of iterative reconstruction technique DLP: 1530 mGy-cm STENOSIS MEASUREMENT: Degree of stenosis was measured and calculated based on NASCET criteria. Carotid stenosis reference using NASCET criteria: % stenosis = (1 - narrowest ICA diameter/diameter of distal cervical ICA) x 100. Mild - < 50% stenosis. Moderate - 50-69% stenosis. Severe - 70-94% stenosis. Near occlusion - 95-99% stenosis. Occluded - 100% stenosis. FINDINGS: RIGHT SIDE: Right internal carotid artery: Smoothly patent. A prominent calcified atherosclerotic plaque is seen at medial wall of the origin without causing hemodynamically significant stenosis. Right external carotid artery: Smoothly patent. Right common carotid artery: Smoothly patent. Right vertebral artery: Smoothly patent. LEFT SIDE: Left internal carotid artery: Smoothly patent. A prominent calcified atherosclerotic plaque is seen at medial wall of the origin without causing hemodynamically significant stenosis. Left external carotid artery: Smoothly patent. Left common carotid artery: Smoothly patent. Left vertebral artery: Smoothly patent and dominant. At the superior mediastinum, the visualized right innominate artery, bilateral subclavian arteries and common carotid arteries are smoothly patent starting from the origin at the aortic arch. Atherosclerotic plaques are seen in the aortic arch. Advanced C4-C5 to C6-C7 degenerative cervical disc disease, grade 1 C7-T1 anterolisthesis are seen. IMPRESSION: 1. Atherosclerotic plaques are seen at origin of bilateral internal carotid arteries. No evidence of significant carotid stenosis. 2. Patent bilateral vertebral arteries with left-sided dominance. Electronically signed by: Anushka Trujillo MD 10/10/2024 02:42 PM EST
--- NOTE | 2024-10-09 12:35 | ED.GENADULT ---
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 Patient reports he has had dizziness and unsteady on his feet for several years. He admits he has not seen a doctor for at least 4 years He denies any pain. The patient reports that his symptoms has seemed to be worsening over the last 2 months Denies any headache or back pain. He reports that he does not have any true urinary incontinence but states that he is unable to get to the bathroom in time and frequently wets himself He fell 3 times today hitting his head The patient reports alcohol abuse The patient does not take any medications Related Data Previous Rx's ?Medication ?Instructions ?Recorded nitrofurantoin 100 mg PO Q12H 7 days #14 caps 08/01/23 monohydrate/macrocrystals 100 mg capsule (Macrobid) Allergies Allergy/AdvReac Type Severity Reaction Status Date / Time No Known Allergies Allergy Verified 10/09/24 12:42 Review of Systems Constitutional: Constitutional: Denies body ache(s), Denies chills, Denies fever(s), Reports frequent falls and Denies headache(s) Eyes: Eyes: Denies blurry vision ENT: Reports dizziness and Denies headache(s) Cardiovascular: Cardiovascular: Denies chest pain and Denies dyspnea Respiratory: Respiratory: Denies cough and Denies dyspnea Gastrointestinal: Gastrointestinal: Denies abdominal pain, Denies nausea and Denies vomiting Musculoskeletal: Musculoskeletal: Denies back pain Integumentary/Breasts: Skin/Breast: Denies rash Neurologic: Reports dizziness, Reports frequent falls and Denies headache(s) Psychiatric: Psychiatric: Denies anxiety [facility] Social History Social History Alcohol intake: current Alcohol intake frequency: a few times a week Alcohol type: beer Use of substances other than those prescribed or required for medical reasons: No Advance Directives: No Advance Directives Information Provided: No Physical Exam ED Vital Signs: Vital Signs - 24 hr 10/09/24 12:36 10/09/24 18:26 10/09/24 21:18 Temperature 97.9 F 98.5 F 98.4 F Pulse Rate 68 73 71 Respiratory Rate 18 19 16 Blood Pressure 164/77 H 148/76 H 130/43 L Pulse Oximetry 97 98 98 Oxygen Delivery Method Room Air Room Air Room Air 10/10/24 00:42 10/10/24 04:00 10/10/24 06:42 Temperature 98.4 F 98.2 F 98.3 F Pulse Rate 64 72 68 Respiratory Rate 16 16 16 Blood Pressure 140/58 H 175/75 H 150/67 H Pulse Oximetry 97 97 96 Oxygen Delivery Method Room Air Room Air Room Air BMI result Body Mass Index 25.0 GI Other: External hemorrhoid at the 2 o'clock position. Nonthrombosed, no active bleeding Course Course Course Narrative: RME performed by Maureen Medellin PA-C. Patient is a 73 year old assigned male at presenting to the emergency department with multiple falls secondary to dizziness and lower leg pain. Patient states he has been having bilateral lower leg pain for years as well as intermittent lower leg pain. Patient states that his chest and head also hurt. Patient states that he is concerned about a hemorrhoid because he feels a rectal mass. Patient states that he does not have a primary care provider. Detailed physical exam and review of systems are deferred to the trainman. EKG and labs ordered. Patient placed back in the waiting room pending room availability and results. Reevaluation(s) Reevaluation #1: 0717 10/10/24 -- patient is slightly hypertensive to 150/67. Vitals otherwise WNL. No acute overnight events per nursing staff. Will have pharmacy conduct med reconciliation. Physician observation continued pending PT/case management consultation. Medical Decision Making Medical Decision Making MDM Narrative: 73-year-old male who has no diagnosed medical history albeit without seeing a primary provider in the last 4 years. He complains of dizziness that is chronic. He is neurologically intact, there is no evidence of posterior stroke. NIH stroke score is 0. The patient has no back pain, his strength was lower extremities is 4/5 bilaterally. I have no suspicion for cauda equina syndrome. The patient's symptoms are likely chronic, maybe related to alcohol abuse leading to frequent falls. His workup in the ER is reassuring, his labs without any significant abnormalities, we will get a urinalysis Differential Diagnosis Differential Diagnoses: The differential diagnosis associated with the presentation includes Failure to thrive Dizziness Vertigo Posterior CVA less likely Orthostasis Dehydration Alcohol abuse Lab Data MDM Lab Attestation statement: I reviewed the patient's lab results. No leukocytosis or anemia. Normal platelet count. No electrolyte abnormalities. 10/09/24 13:13 10/09/24 13:13 Labs: Lab Results 10/09/24 10/10/24 Range/Units 13:13 05:21 WBC 5.5 (4.8-10.8) X10*3/uL RBC 5.05 (4.60-5.80) X10*6/uL Hgb 15.5 (14.0-18.0) g/dl Hct 45.9 (42.0-52.0) % MCV 90.9 (80.0-98.0) fL MCH 30.7 (27.0-33.0) pg MCHC 33.8 (31.0-36.0) g/dl RDW 12.9 (11.0-16.0) % Plt Count 232 (160-400) X10*3/uL MPV 9.6 (9.4-12.4) fL Immature Gran % (Auto) 0.5 H (0.0-0.4) % Neut % (Auto) 60.8 (45-73) % Lymph % (Auto) 27.4 (20-40) % [place] % (Auto) 9.4 (2-11) % Eos % (Auto) 1.4 (0-4) % Baso % (Auto) 0.5 (0-2) % Lymph # (Auto) 1.5 (1.2-4.9) X10*3/uL [place] # (Auto) 0.5 (0.1-1.2) X10*3/uL Eos # (Auto) 0.1 (0.0-0.4) X10*3/uL Baso # (Auto) 0.0 (0.0-0.2) X10*3/uL Abs Immat Gran (auto) 0.03 (0.00-0.03) X10*3/uL Absolute Neuts (auto) 3.4 (2.0-8.3) x10*3/uL Absolute Nucleated RBC 0.000 (0.0-0.012) X10*3/uL Nucleated RBC % (auto) 0.0 (0.0-0.2) /100WBC PT 10.9 (10.9-12.4) SEC INR 0.9 (0.9-1.1) Sodium 142 (135-145) mmol/L Potassium 4.8 (3.3-5.1) mmol/L Chloride 108 (96-108) mmol/L Carbon Dioxide 25 (22-29) mmol/L Anion Gap 14 (12-20) BUN 11 (9-16) mg/dL Creatinine 1.05 (0.5-1.4) mg/dL Estim Creat Clear Calc 56.1 Estimated GFR > 60 Random Glucose 99 (60-115) mg/dL Calcium 9.8 (8.4-10.2) mg/dL Magnesium 2.2 (1.6-2.6) mg/dL Total Bilirubin 0.5 (0.0-1.0) mg/dL AST 23 (5-37) U/L ALT 22 (0-40) U/L Alkaline Phosphatase 73 (39-117) U/L Troponin I High Sens 3.4 (<3.5-35.0) ng/L Total Protein 8.0 (6.5-8.0) g/dL Albumin 4.3 (3.5-5.0) g/dL Urine Color Yellow Urine Appearance Clear Urine pH 5.5 (5.0-9.0) Ur Specific [place] 1.020 (1.005-1.025) Urine Protein Negative (Neg-Trace) mg/dL Urine Glucose (UA) Negative (Negative) mg/dL Urine Ketones Trace (Negative) mg/dL Urine Blood Negative (Negative) Urine Nitrite Negative (Negative) Ur Leukocyte Esterase Negative (Negative) Ethyl Alcohol < 10 mg/dL Influenza Type A (PCR) NEGATIVE (Negative) Influenza Type B (PCR) NEGATIVE (Negative) RSV RNA Qual (PCR) NEGATIVE (Negative) SARS-CoV-2 RNA (RT-PCR) NEGATIVE (Negative) Radiology Impression Discussion of test interpretation with radiology: I have reviewed the radiologist's reading. Radiologist Impression: FINDINGS: No acute fractures or dislocations of the cervical spine are seen. Straightening of normal cervical curvature. Multilevel degenerative changes. Grade 1 anterolisthesis of C7 on T1. Anatomic alignment and positioning of the vertebral bodies and posterior elements is noted. The atlantoaxial joint and craniovertebral articulations are normal without evidence of subluxation. There is no prevertebral soft tissue swelling. The thyroid gland and visualized portions of the lung apices and mediastinum are unremarkable. IMPRESSION: 1. No acute visible fracture or dislocation. 2. Straightening of normal cervical curvature. 3. Multilevel degenerative changes. Grade 1 anterolisthesis of C7 on T1. Discharge Plan Discharge Clinical Impression: Adult failure to thrive, Gait instability Patient Disposition: Still a Patient Prescriptions: No Action nitrofurantoin monohyd/m-cryst [Macrobid] 100 mg capsule 100 mg PO Q12H 7 Days Qty: 14 0RF Rx Instructions: must administer with a meal/food Print Language: Kittitian
[2024-10-09 12:36] VITALS: BP 164/77; PULSE 68; RESP 18; TEMP 36.6; O2SAT 97; BMI 25.0
--- NOTE | 2024-10-09 12:38 | ECG_ITS ---
Test Reason : WEAKNESS Blood Pressure : / mmHG Vent. Rate : 068 BPM Atrial Rate : 068 BPM P-R Int : 128 ms QRS Dur : 112 ms QT Int : 408 ms P-R-T Axes : 050 -18 024 degrees QTc Int : 433 ms Normal sinus rhythm Incomplete right bundle branch block Borderline ECG When compared with ECG of 05-JUN-2024 15:05, Incomplete right bundle branch block is now Present Referred By: Maureen Medellin Electronically Signed By:Trae Baldwin
[2024-10-09 13:20] LABS: MANUAL DIFF FLAG NO
[2024-10-09 13:23] LABS: Basophils Percent Auto 0.5 % (0-2); Eosinophils Absolute Auto 0.1 X10*3/uL (0.0-0.4); Eosinophils Percent Auto 1.4 % (0-4); Hematocrit 45.9 % (42.0-52.0); Hemoglobin 15.5 g/dl (14.0-18.0); Imm Gran Abs Auto 0.03 X10*3/uL (0.00-0.03); Imm Gran Pct Auto 0.5 % (0.0-0.4); Lymphocytes Absolute Auto 1.5 X10*3/uL (1.2-4.9); Lymphocytes Percent Auto 27.4 % (20-40); Mean Corpuscular HGB Conc 33.8 g/dl (31.0-36.0); Mean Corpuscular Hemoglobin 30.7 pg (27.0-33.0); Mean Corpuscular Volume 90.9 fL (80.0-98.0); Mean Platelet Volume 9.6 fL (9.4-12.4); Monocytes Absolute Auto 0.5 X10*3/uL (0.1-1.2); Monocytes Percent Auto 9.4 % (2-11); Neutrophils Absolute Auto 3.4 x10*3/uL (2.0-8.3); Neutrophils Percent Auto 60.8 % (45-73); Platelet Count 232 X10*3/uL (160-400); Red Blood Count 5.05 X10*6/uL (4.60-5.80); Red Cell Distribution Width 12.9 % (11.0-16.0); White Blood Count 5.5 X10*3/uL (4.8-10.8)
[2024-10-09 13:31] LABS: INTERNATIONAL NORM RATIO 0.9 (0.9-1.1); Prothrombin Time 10.9 SEC (10.9-12.4)
[2024-10-09 13:37] LABS: Alanine Aminotransferase 22 U/L (0-40); Albumin Level 4.3 g/dL (3.5-5.0); Alkaline Phosphatase 73 U/L (39-117); Anion Gap 14 (12-20); Aspartate Amino Transferase 23 U/L (5-37); Bilirubin Total 0.5 mg/dL (0.0-1.0); Blood Urea Nitrogen 11 mg/dL (9-16); Calcium 9.8 mg/dL (8.4-10.2); Carbon Dioxide 25 mmol/L (22-29); Chloride 108 mmol/L (96-108); Creatinine Clr Calc Pharmacy 56.1; Estimated Glomerular Filt Rate > 60; Glucose Random 99 mg/dL (60-115); Magnesium 2.2 mg/dL (1.6-2.6); Potassium 4.8 mmol/L (3.3-5.1); Sodium 142 mmol/L (135-145)
[2024-10-09 13:44] LABS: Troponin-I High Sensitivity 3.4 ng/L (<3.5-35.0)
[2024-10-09 16:08] LABS: Influenza A PCR NEGATIVE (Negative); Influenza B PCR NEGATIVE (Negative); Resp Syncy Virus RNA Qual PCR NEGATIVE (Negative); SARS COV2 PCR INHOUSE NEGATIVE (Negative)
[2024-10-09 18:26] VITALS: BP 148/76; PULSE 73; RESP 19; TEMP 36.9; O2SAT 98
[2024-10-09 21:18] VITALS: BP 130/43; PULSE 71; RESP 16; TEMP 36.9; O2SAT 98
[2024-10-09 21:46] LABS: Ethanol < 10 mg/dL
[2024-10-10] VITALS (7 sets, daily range): BP systolic 139–176; BP diastolic 58–76; PULSE 61–78; RESP 14–18; TEMP 36.2–37.1; O2SAT 96–100
--- NOTE | 2024-10-10 00:45 | MHC.EDTECH ---
This pct assumed care of Patient at 0000 ,vitals taken ,Patient was reposition and boosted up in bed ,Patient belongings list done ,Patient was given chicken salad sandwich and yennifer padilla for snack .All safety measure in Place .
[2024-10-10 05:28] LABS: Appearance Urine Clear; Color Urine Yellow; Glucose Urine UA Negative (Negative); Leukocyte Esterase Urine Negative (Negative); Nitrite Urine Negative (Negative); PH 5.5 (5.0-9.0); Urine Blood Negative (Negative); Urine Ketones Trace mg/dL (Negative); Urine Protein Negative (Neg-Trace)
--- NOTE | 2024-10-10 06:06 | PC.NURSE ---
urine collected and sent pt reposition for comfort, at the bedside.
--- NOTE | 2024-10-10 06:35 | PC.NURSE ---
pt leave at home by himself, family member at the bed side reports he been having increase weakness, incontinence, pt need more help at home. PT/case managment.
--- NOTE | 2024-10-10 11:29 | ECG_ITS ---
Test Reason : stroke protocol Blood Pressure : / mmHG Vent. Rate : 062 BPM Atrial Rate : 062 BPM P-R Int : 132 ms QRS Dur : 116 ms QT Int : 420 ms P-R-T Axes : 043 -16 024 degrees QTc Int : 426 ms Sinus rhythm with occasional Premature ventricular complexes Incomplete right bundle branch block Borderline ECG When compared with ECG of 09-OCT-2024 12:57, Premature ventricular complexes are now Present Referred By: Lucia Angel Electronically Signed By:Trae Baldwin
[2024-10-10] MEDS: iohexoL 350 MG/ML 100 ML INFUS..BTL 70 ML IV (11:56)
[2024-10-10 11:57] LABS: Glucose, Whole Blood 77 mg/dL (60-115)
[2024-10-10 12:06] LABS: Prothrombin Time Whole Bld POC 12.9 sec (11.1-13.5); ~PT, ~INR - Anti Coag Clinic 1.1 (0.9-1.1)
--- NOTE | 2024-10-10 12:31 | MHC.STROKE ---
Notified of stroke alert in the ED. Pt was moved from overflow to main ED and was currently in CT scan. I met patient in CT scan. Book[employer] Clerks Supervisor utilized Pt alert and oriented, answering questions appropriately. Following all commands, speech clear. tongue midline. No facial droop noted. left hand grasp slightly weaker than the right. Pt attempting to lift left leg off of stretcher. Able to lift only slightly but unable to keep leg up. Good sensation in all limbs. Significant other at bedside. MRI screening form completed with er registrar, patient and significant other. Plan of care discussed with both the patient and SO. Stroke Education booklet provided. Risk factors discussed. Will continue to assist as needed.
[2024-10-10 12:32] LABS: MANUAL DIFF FLAG NO
[2024-10-10 12:34] LABS: Basophils Percent Auto 0.4 % (0-2); Eosinophils Percent Auto 0.7 % (0-4); Hematocrit 44.5 % (42.0-52.0); Imm Gran Abs Auto 0.04 X10*3/uL (0.00-0.03); Imm Gran Pct Auto 0.7 % (0.0-0.4); Lymphocytes Absolute Auto 1.6 X10*3/uL (1.2-4.9); Lymphocytes Percent Auto 28.9 % (20-40); Mean Corpuscular HGB Conc 33.7 g/dl (31.0-36.0); Mean Corpuscular Hemoglobin 30.7 pg (27.0-33.0); Mean Corpuscular Volume 91.2 fL (80.0-98.0); Mean Platelet Volume 9.7 fL (9.4-12.4); Monocytes Absolute Auto 0.5 X10*3/uL (0.1-1.2); Monocytes Percent Auto 9.5 % (2-11); Neutrophils Absolute Auto 3.3 x10*3/uL (2.0-8.3); Neutrophils Percent Auto 59.8 % (45-73); Platelet Count 215 X10*3/uL (160-400); Red Blood Count 4.88 X10*6/uL (4.60-5.80); Red Cell Distribution Width 12.9 % (11.0-16.0); White Blood Count 5.5 X10*3/uL (4.8-10.8)
--- NOTE | 2024-10-10 12:40 | PC.NURSE ---
Pt off unit to MRI
[2024-10-10 12:41] LABS: INTERNATIONAL NORM RATIO 0.9 (0.9-1.1)
[2024-10-10 12:44] LABS: Partial Thromboplastin Time 30.8 SEC (26.0-36.8)
[2024-10-10 12:47] LABS: Anion Gap 11 (12-20); Blood Urea Nitrogen 16 mg/dL (9-16); Calcium 9.8 mg/dL (8.4-10.2); Carbon Dioxide 26 mmol/L (22-29); Chloride 104 mmol/L (96-108); Cholesterol 216 mg/dL (<200); Creatinine Clr Calc Pharmacy 59.5; Estimated Glomerular Filt Rate > 60; Glucose Random 88 mg/dL (60-115); HDL Cholesterol 37 mg/dL (>40); LDL Cholesterol Calculated 149 mg/dL (<100); Potassium 4.3 mmol/L (3.3-5.1); Sodium 137 mmol/L (135-145); Triglycerides 151 mg/dL (<150)
[2024-10-10 12:54] LABS: Troponin-I High Sensitivity 4.8 ng/L (<3.5-35.0)
[2024-10-10 12:56] LABS: Stroke Lab Use COMPLETE
--- NOTE | 2024-10-10 14:59 | PHA.MEDREC ---
Addendum entered by Velma Owusu RPh 10/10/24 15:06: reviewed by [facility]. Original Note: Pharmacy Consult ? Medication Reconciliation Pharmacy has completed the medication reconciliation. Spoke to patient through solid [employer] finisher service (Carlos) patient states he isn't on any home medications.
--- NOTE | 2024-10-10 15:06 | MHC.CM.ED ---
Received case management consult overnight. Just received notification that patient will be admitted due to acute CVA. Continue to monitor for d/c needs.
--- NOTE | 2024-10-10 15:42 | P.HPHOSP_ITS ---
History of Present Illness Date of Service: 10/10/24 Chief Complaint: stroke 73-year-old man presenting with dizziness and unsteadiness. Patient reports that this has been ongoing for several years he has not been seen by a primary care provider for over 4 years. Apparently he had fallen 3 times hitting his head at home.He also drinks alcohol most days and his said that he doesnt eat very well especially on days hes drinking. The plan was to have patient be seen by Physical therapy for placement but patient developed left-sided weakness while working with physical therapy. He denied chest pain, sob, nausea, vomiting, diarrhea, recent travel, sick contacts. In the ER, labs wnl, CT of the brain showed acute cerebral infarcts an MRI showed acute cerebral infarcts and anterior right parasagittal frontal lobe and right parasagittal frontoparietal junction. There is also chronic lacunar infarcts seen in anterior lateral right frontal deep white matter. Patient will be admitted for further mamagement of stroke. Review of Systems 2 Review of Systems: Denies any recent fever chills or decrease in appetite respiratory denies sob or cough cardiovascular denied chest pain gastrointestinal denies any dysphagia abdominal pain nausea vomiting or diarrhea genitourinary denies any dysuria frequency or hematuria musculoskeletal denies any joint pain or swelling neuropsych denies any weakness or seizures all other systems reviewed are negative PMFSH Social History Alcohol intake: current Alcohol intake frequency: a few times a week Alcohol type: beer Use of substances other than those prescribed or required for medical reasons: No Advance Directives: No Advance Directives Information Provided: No Meds Allergies Allergy/AdvReac Type Severity Reaction Status Date / Time No Known Allergies Allergy Verified 10/09/24 12:42 Active Medications: Current Medications Acetaminophen (Acetaminophen 325 Mg Tablet) 650 mg PO Q6H PRN PRN Reason: Pain, Mild (Pain Scale 1-3), fever or headache Aspirin (Aspirin 81 Mg Tab.Chew) 81 mg PO DAILY TYLER Atorvastatin Calcium (Atorvastatin Calcium 80 Mg Tablet) 80 mg PO BEDTIME TYLER Calcium Carbonate (Calcium Carbonate 750 Mg Tab.Chew) 750 mg PO Q4H PRN PRN Reason: Heartburn Magnesium Hydroxide (Milk Of Magnesia 30 Ml Oral.Susp) 30 ml PO DAILY PRN PRN Reason: Constipation Melatonin (Melatonin 3 Mg Tablet) 6 mg PO BEDTIME PRN PRN Reason: Insomnia Ondansetron HCl (Ondansetron Hcl 4 Mg/2 Ml Vial) 4 mg IVPUSH Q8H PRN PRN Reason: Nausea and Vomiting Home Medications ?Medication ?Instructions ?Recorded ?Confirmed ?Last Taken ?Type No Known Home Meds 10/10/24 10/10/24 Unknown History Physical Exam 2 Vital Signs and Narrative: Vital Signs: Last Vital Signs Temp 98.4 F 10/10/24 14:53 Pulse 61 10/10/24 14:53 Resp 18 10/10/24 14:53 BP 176/72 H 10/10/24 14:53 Pulse Ox 100 10/10/24 14:53 O2 Del Method Room Air 10/10/24 14:53 BMI result Body Mass Index 25.0 Appearing in no acute distress head is normocephalic atraumatic eyes pupils are PERRLA sclera is anicteric mouth throat mucous membranes are intact and moist neck is supple no lymphadenopathy, no JVD noted lung sounds are clear to auscultation heart regular rate rhythm, clear S1, S2 positive bowel sounds, abdomen is soft, nontender neuro patient is alert, 3/5 strength to left upper and lower extremity Results Labs 10/10/24 12:28 10/10/24 12:28 Labs: Laboratory Results - last 24 hr 10/09/24 10/10/24 10/10/24 13:13 05:21 11:45 MCV MCH MCHC RDW Plt Count MPV Immature Gran % (Auto) Neut % (Auto) Lymph % (Auto) Roosevelt % (Auto) Eos % (Auto) Baso % (Auto) Lymph # (Auto) Roosevelt # (Auto) Eos # (Auto) Baso # (Auto) Abs Immat Gran (auto) Absolute Neuts (auto) Absolute Nucleated RBC Nucleated RBC % (auto) PT Whole Blood PT INR Whole Blood INR APTT Anion Gap Estim Creat Clear Calc Estimated GFR POC Glucose 77 Random Glucose Calcium Troponin I High Sens Triglycerides Cholesterol LDL Cholesterol, Calc HDL Cholesterol Urine Color Yellow Urine Appearance Clear Urine pH 5.5 Ur Specific Beverly 1.020 Urine Protein Negative Urine Glucose (UA) Negative Urine Ketones Trace Urine Blood Negative Urine Nitrite Negative Ur Leukocyte Esterase Negative Ethyl Alcohol < 10 Influenza Type A (PCR) NEGATIVE Influenza Type B (PCR) NEGATIVE RSV RNA Qual (PCR) NEGATIVE SARS-CoV-2 RNA (RT-PCR) NEGATIVE 10/10/24 10/10/24 11:52 12:28 MCV 91.2 MCH 30.7 MCHC 33.7 RDW 12.9 Plt Count 215 MPV 9.7 Immature Gran % (Auto) 0.7 H Neut % (Auto) 59.8 Lymph % (Auto) 28.9 Roosevelt % (Auto) 9.5 Eos % (Auto) 0.7 Baso % (Auto) 0.4 Lymph # (Auto) 1.6 Roosevelt # (Auto) 0.5 Eos # (Auto) 0.0 Baso # (Auto) 0.0 Abs Immat Gran (auto) 0.04 H Absolute Neuts (auto) 3.3 Absolute Nucleated RBC 0.000 Nucleated RBC % (auto) 0.0 PT 11.0 Whole Blood PT 12.9 INR 0.9 Whole Blood INR 1.1 APTT 30.8 Anion Gap 11 L Estim Creat Clear Calc 59.5 Estimated GFR > 60 POC Glucose Random Glucose 88 Calcium 9.8 Troponin I High Sens 4.8 Triglycerides 151 H Cholesterol 216 H LDL Cholesterol, Calc 149 H HDL Cholesterol 37 L Urine Color Urine Appearance Urine pH Ur Specific Beverly Urine Protein Urine Glucose (UA) Urine Ketones Urine Blood Urine Nitrite Ur Leukocyte Esterase Ethyl Alcohol Influenza Type A (PCR) Influenza Type B (PCR) RSV RNA Qual (PCR) SARS-CoV-2 RNA (RT-PCR) Imaging Radiologist's Impressions: Impressions Head CT 10/10/24 11:29 IMPRESSION: Loss of diallo-white distinction at the medial aspect of the high right frontoparietal region, suggesting age indeterminate infarct. Bilateral patchy chronic periventricular white matter ischemic changes. KATERINE Sloan was directly informed of the findings by telephone at approximately 12:40 PM on October 10, 2024. Electronically signed by: Joe Aranda MD 10/10/2024 12:41 PM [facility] Head/Neck CTA 10/10/24 11:29 IMPRESSION: 1. 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 2. No intracranial hemorrhage or skull fracture is seen. 3. No evidence of space occupying or enhancing intracranial mass lesion could be found. 4. Persistent suspicious relatively acute cerebral infarctions in medial right frontal lobe anterior to the right lateral ventricle and right parasagittal frontal parietal junction.. EXAMINATION: CT angiogram of brain. CLINICAL INFORMATION: Cerebral vascular disease. Left hemiparesis, ataxia, dizziness COMPARISON: None available. TECHNIQUE: CT angiogram of the brain was performed C7 following the administration of 70 mL of Omnipaque 350. Coronal and sagittal images were reconstructed from axial image data. 3-dimensional volumetric maximum intensity projection images in multiple planes were reconstructed on an independent workstation. This was performed under concurrent direct supervision and monitoring by radiologist. Reformatted maximum intensity projection angiographic images of the brain were reconstructed on an independent workstation. This CT examination was performed using dose optimization techniques as appropriate, variously including the following: *Automated exposure control *Adjustment of mA and/or kV according to patient size (this includes techniques or standardized protocols for targeted exams where dose is matched to indication/reason for exam; i.e. extremities or head) *Use of iterative reconstruction technique DLP: 1530 mGy-cm FINDINGS: There is normal visualization of bilateral anterior, middle and posterior cerebral arteries, internal carotid arteries, basilar artery and terminal portions of bilateral vertebral arteries. Anterior communicating artery is normal. Bilateral posterior communicating arteries are normal. There is a short segment of 58.6% stenosis in mid M1 segment of left middle cerebral artery for a length of 0.45 cm. The right anterior cerebral artery is asymmetrically small in caliber with decreased contrast filling starting from A3 segment. Bilateral internal carotid siphons are smoothly patent. Focal atherosclerotic calcifications are present without causing hemodynamically significant stenosis. Timing of the bolus allows assessment of the major dural venous sinuses. The major cerebral venous sinuses show normal contrast filling. IMPRESSION: 1. Short segment narrowing is seen in mid M1 segment of the left middle cerebral artery. 2. Asymmetrically smaller caliber with decreased contrast enhancement is seen in right anterior cerebral artery starting from A3 segment.. EXAMINATION: CT angiogram of neck. CLINICAL INFORMATION: Cerebral vascular disease, Left hemiparesis, ataxia, dizziness. COMPARISON: None available. TECHNIQUE: Contrast enhanced CT angiogram of the neck and superior mediastinum was performed following the administration of 70 mL of Omnipaque 350. 3-dimensional volumetric maximum intensity projection images in multiple planes were reconstructed on an independent workstation. This was performed under concurrent direct supervision and monitoring by radiologist. Reformatted maximum intensity projection angiographic images of the neck and superior mediastinum were reconstructed on an independent workstation. Magnified images of carotid bifurcations were reconstructed. This CT examination was performed using dose optimization techniques as appropriate, variously including the following: *Automated exposure control *Adjustment of mA and/or kV according to patient size (this includes techniques or standardized protocols for targeted exams where dose is matched to indication/reason for exam; i.e. extremities or head) *Use of iterative reconstruction technique DLP: 1530 mGy-cm STENOSIS MEASUREMENT: Degree of stenosis was measured and calculated based on NASCET criteria. Carotid stenosis reference using NASCET criteria: % stenosis = (1 - narrowest ICA diameter/diameter of distal cervical ICA) x 100. Mild - < 50% stenosis. Moderate - 50-69% stenosis. Severe - 70-94% stenosis. Near occlusion - 95-99% stenosis. Occluded - 100% stenosis. FINDINGS: RIGHT SIDE: Right internal carotid artery: Smoothly patent. A prominent calcified atherosclerotic plaque is seen at medial wall of the origin without causing hemodynamically significant stenosis. Right external carotid artery: Smoothly patent. Right common carotid artery: Smoothly patent. Right vertebral artery: Smoothly patent. LEFT SIDE: Left internal carotid artery: Smoothly patent. A prominent calcified atherosclerotic plaque is seen at medial wall of the origin without causing hemodynamically significant stenosis. Left external carotid artery: Smoothly patent. Left common carotid artery: Smoothly patent. Left vertebral artery: Smoothly patent and dominant. At the superior mediastinum, the visualized right innominate artery, bilateral subclavian arteries and common carotid arteries are smoothly patent starting from the origin at the aortic arch. Atherosclerotic plaques are seen in the aortic arch. Advanced C4-C5 to C6-C7 degenerative cervical disc disease, grade 1 C7-T1 anterolisthesis are seen. IMPRESSION: 1. Atherosclerotic plaques are seen at origin of bilateral internal carotid arteries. No evidence of significant carotid stenosis. 2. Patent bilateral vertebral arteries with left-sided dominance. Electronically signed by: Anushka Trujillo MD 10/10/2024 02:42 PM [facility] Brain MRI 10/10/24 12:50 IMPRESSION: 1. Findings confirm the presence of acute cerebral infarctions in anterior right parasagittal frontal lobe and right parasagittal frontal parietal junction, estimated to be 1 5 hours and 2 weeks of age. The right anterior frontal infarcts appear to be more acute. 2. Chronic lacunar infarct is seen in anterior lateral right frontal deep white matter. 3. 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 4. No evidence of space occupying mass lesion could be found. 5. No evidence of intracranial hemorrhage. Electronically signed by: Anushka Trujillo MD 10/10/2024 02:51 PM [facility] Assessment and Plan (1) Acute cerebral infarction: Status: Acute Plan 73 year old man admitted for stroke, has not seen a pcp in more than 4 years Stroke MRI showing acute cerebral infarction in anterior right parasagittal frontal lobe and right parasagittal frontal parietal junction, chronic lacunar infarct in the lateral right frontal deep white matter, bilateral frontal and parietal ischemic white matter lesions Monitor on telemetry Neurology consultation Echocardiogram Aspirin and statin Check TSH, A1c in the morning PT/OT and speech Elevated blood pressure reading No history of hypertension Monitor for now Alcohol abuse drinks 3 beers and 3-4 nips of rum most days no withdrawal symptoms at this time CIWA DVT prophylaxis with Lovenox Full code Quality Stroke Does the patient have a stroke diagnosis?: Yes Reason for No Anti-thrombotic by Day Two: N/A - Med Ordered VTE Prior VTE?: No VTE Risk Level:: Medical - moderate - high VTE Device Contraindication: Treatment Not Indicated VTE Drug Contraindication: N/A - Med Ordered
--- NOTE | 2024-10-10 17:33 | MHC.EDTECH ---
This pct answered call kellogg in patients room,upon entering room the patient states he sees a rat or a skunk running around his room the patient is clearly having hallucination spells, This pct tried to reassure the patient that he is safe and there is no animal/rodent running around his room although the patient feels like what he is seeing is real. RN Aware
--- NOTE | 2024-10-10 19:02 | PC.NURSE ---
calls this RN to bedside as Pt has been complaining of a skunk running around his room. Pt also makes several attempts to leave the ED to smoke a cigarette. Pt counseled on the rules of the hospital on smoking and he is reminded that he may not leave at this time. POLO Dempsey made aware.
--- NOTE | 2024-10-10 19:06 | PC.NURSE ---
report received from Tanisha Cross RN, assume care of pt at this time
[2024-10-10] MEDS: Enoxaparin Sodium 40 MG/0.4 ML SYRINGE SUBCUT (19:38)
[2024-10-10] MEDS: Atorvastatin Calcium 80 MG TABLET PO (22:22)
[2024-10-11] VITALS (7 sets, daily range): BP systolic 147–167; BP diastolic 58–83; PULSE 70–82; RESP 14–20; TEMP 36.3–37.2; O2SAT 95–99
[2024-10-11 01:00] LABS: Glucose, Whole Blood 106 mg/dL (60-115)
--- NOTE | 2024-10-11 03:15 | PC.NURSE ---
Maryjo LOVETT, and joshua came to take pt to [facility] per stretcher, spouse went with them
--- NOTE | 2024-10-11 07:00 | CA_ITS ---
Transthoracic Echocardiogram Patient (Last, First, Middle): Klaus Zamora, Gender: Male Date of : 1950 Age: 73 Procedure Date: 10/11/2024 Procedure Type: Transthoracic Echocardiogram Location: [place] Height: 165.1 cm Weight: 68.04 kg BSA: 1.75 m2 Heart Rate: 75 bpm BP: 152 / 72 mmHg Weights And Measures Sealer: SB Referring MD: Yolanda Demspey NP Symptoms: stroke Study Quality: Adequate ECG Rhythm: Sinus Conclusions: - Normal left ventricular cavity size. The left ventricular systolic function is borderline reduced. The visually estimated ejection fraction is between 45-50%. - Normal right ventricular cavity size and systolic function. Findings Left Ventricle Normal left ventricular cavity size. The left ventricular systolic function is borderline reduced. The visually estimated ejection fraction is between 45-50%. Regional wall motion abnormalities can not be excluded due to suboptimal endocardial definition. Diastolic function is indeterminate on the basis of available data. There is mild septal asymmetric hypertrophy. Right Ventricle Normal right ventricular cavity size and systolic function. Atria The left atrium is normal in size. The right atrium is normal in size. Aortic Valve Normal aortic valve structure and function. There is no aortic valve stenosis. There is no aortic valve regurgitation. Mitral Valve The mitral valve appears normal. There is no mitral valve regurgitation. There is no mitral valve stenosis. Pulmonic Valve The pulmonic valve is likely normal. Tricuspid Valve Normal tricuspid valve structure. There is no tricuspid valve regurgitation. Tricuspid regurgitation envelope is inadequate for calculation of right ventricular systolic pressure. Normal right atrial pressure. Great Vessels All visible segments of the aorta are normal in size. Venous The inferior vena cava is normal in size and collapses greater than 50% with inspiration. Pericardium/Pleural There is no evidence of pericardial effusion. Prior Study Comparison No prior study available for comparison. Measurements 2D Linear Measurements IVSd: 1.30 0.6-0.9/0.6-1.0 cm LVIDd: 4.68 3.9-5.3/4.2-5.9 cm LVIDd Index: 2.67 2.4-3.2/2.2-3.1 cm/m2 LVIDs: 3.00 2.0-3.6 cm LVPWd: 0.69 0.7-1.1 cm LA Diam: 3.50 2.7-3.8/3.0-4.0 cm LAIDs Index: 2.00 1.5-2.3 cm/m2 LV Mass: 201.59 67-162/88-224 g LV Mass Index: 115.19 43-95/49-115 g/m2 LVOT Diam: 2.20 3.0+(-)1.3 cm 2D Systolic Function EF 4C: 55.70 >55% Mitral Valve MV Pk E: 0.38 MV PK A: 0.49 MV Decel Time: 366.00 E/A: 0.80 PHT: 107.00 MVA PHT: 2.06 Decel [place]: 1.04 Aortic Valve AoV Pk Gustavo: 0.86 AoV Pk Grad: 3.00 NATHAN: 2.39 LVOT LVOT Pk Gustavo: 0.54 LVOT Mn Gustavo: 0.34 LVOT VTI: 0.11 LVOT Pk Grad: 1.00 LVOT Mn Grad: 1.00 LVOT Diam: 2.20 LVOT Area: 3.80 Diastolic Function MV Pk E: 0.38 MV Pk A: 0.49 E/A: 0.80 Right Ventricle TAPSE (mm): 17.50 TVS' Gustavo: 12.40 Great Vessels Aorta Sinus of Valsalva: 3.30 2.0-3.5 cm Ao Asc: 3.10 2.1-3.4 cm Pulmonary Valve PV Pk Gustavo: 0.73 Peak PV Grad: 2.00 Updated in Other Vendor System with Status of Final Trae Baldwin MD electronically signed on 10/11/2024 2:16:30 PM with status of Final
[2024-10-11 09:27] LABS: MANUAL DIFF FLAG NO
[2024-10-11 09:34] LABS: Basophils Percent Auto 0.6 % (0-2); Eosinophils Absolute Auto 0.1 X10*3/uL (0.0-0.4); Eosinophils Percent Auto 1.3 % (0-4); Hematocrit 44.1 % (42.0-52.0); Imm Gran Abs Auto 0.04 X10*3/uL (0.00-0.03); Imm Gran Pct Auto 0.6 % (0.0-0.4); Lymphocytes Percent Auto 28.6 % (20-40); Mean Corpuscular Hemoglobin 30.9 pg (27.0-33.0); Mean Corpuscular Volume 90.7 fL (80.0-98.0); Mean Platelet Volume 10.7 fL (9.4-12.4); Monocytes Absolute Auto 0.8 X10*3/uL (0.1-1.2); Monocytes Percent Auto 11.3 % (2-11); Neutrophils Absolute Auto 4.1 x10*3/uL (2.0-8.3); Neutrophils Percent Auto 57.6 % (45-73); Platelet Count 226 X10*3/uL (160-400); Red Blood Count 4.86 X10*6/uL (4.60-5.80); Red Cell Distribution Width 12.8 % (11.0-16.0); White Blood Count 7.1 X10*3/uL (4.8-10.8)
[2024-10-11 09:50] LABS: Estimated Average Glucose 105 mg/dL; Hemoglobin A1C 136.0586 umol/L; Hemoglobin A1c % 5.3 % (<6.0); Total Hemoglobin (HGBA1C) 3936.8192 umol/L
--- NOTE | 2024-10-11 10:09 | PM.NEUROCN ---
History of Present Illness Data of Consult Service Date: 10/11/24 Primary Care Provider: None Physician HPI Reason for consult: Stroke This is a 73-year-old man presenting with sudden onset of left sided weakness and falling upon walking that started around 4 am whne he got up to go to the bathroom. He came to the ER 8 hrs later. He is a poor historian who said that this has been ongoing for several years he has not been seen by a primary care provider for over 4 years. claims that for 2 weeks he has had some fluctuating weakness. He also drinks alcohol most days and his said that he doesn't eat very well especially on days he is drinking. He denied chest pain, sob, nausea, vomiting, diarrhea, recent travel, sick contacts. In the ER, CT of the brain showed acute cerebral infarcts confirmed on MRI in the anterior right parasagittal frontal lobe and right parasagittal frontoparietal junction in the distribution of anterior cerebral artery which is attenuated beyond A3 on CTA . There is also chronic lacunar infarcts seen in anterior lateral right frontal deep white matter. [facility] Social History Social History Household Members: None Do you presently have visiting nurse or other home services: Yes (Has partner who helps provide care for and to him) Alcohol intake: current Alcohol intake frequency: a few times a week Alcohol type: beer Patient Tobacco Use Status: Current everyday Tobacco user Tobacco use type: Cigarette Cigarettes Per Day: 5 Second Hand Smoke Exposure: No service: No Meds Allergies Allergy/AdvReac Type Severity Reaction Status Date / Time No Known Allergies Allergy Verified 10/09/24 12:42 Active Medications: Current Medications Acetaminophen (Acetaminophen 325 Mg Tablet) 650 mg PO Q6H PRN PRN Reason: Pain, Mild (Pain Scale 1-3), fever or headache Aspirin (Aspirin 81 Mg Tab.Chew) 81 mg PO DAILY ON LICENSE OF [facility] Atorvastatin Calcium (Atorvastatin Calcium 80 Mg Tablet) 80 mg PO BEDTIME ON LICENSE OF [facility] Last Admin: 10/10/24 22:22 Dose: 80 mg Calcium Carbonate (Calcium Carbonate 750 Mg Tab.Chew) 750 mg PO Q4H PRN PRN Reason: Heartburn Enoxaparin Sodium (Enoxaparin Sodium 40 Mg/0.4 Ml Syringe) 40 mg SUBCUT Q24H ON LICENSE OF [facility] Last Admin: 10/10/24 19:38 Dose: 40 mg Magnesium Hydroxide (Milk Of Magnesia 30 Ml Oral.Susp) 30 ml PO DAILY PRN PRN Reason: Constipation Melatonin (Melatonin 3 Mg Tablet) 6 mg PO BEDTIME PRN PRN Reason: Insomnia Ondansetron HCl (Ondansetron Hcl 4 Mg/2 Ml Vial) 4 mg IVPUSH Q8H PRN PRN Reason: Nausea and Vomiting Home Medications ?Medication ?Instructions ?Recorded ?Confirmed ?Last Taken ?Type No Known Home Meds 10/10/24 10/10/24 Unknown History Physical Exam Vital Signs: Vital Signs: Last Vital Signs Temp 98.5 F 10/11/24 07:37 Pulse 75 10/11/24 07:37 Resp 16 10/11/24 07:37 BP 167/83 H 10/11/24 07:37 Pulse Ox 99 10/11/24 07:37 O2 Del Method Room Air 10/11/24 07:37 BMI result Body Mass Index 25.0 Neuro: Other: He is arousable and prefers to keep his eyes closed. He follows simple commands and answers questions briefly in short sentences and Niuean. He has no visual field cut. There is no definite droop of the mouth and tongue protrudes in the midline. He has left hemiparesis graded at 4 minus/5. It affects both the arm and the leg with an upgoing plantar response on the left. Results Labs 10/11/24 08:02 10/10/24 12:28 Labs: Short CBC 10/10/24 10/11/24 Range/Units 12:28 08:02 WBC 5.5 7.1 (4.8-10.8) X10*3/uL Hgb 15.0 15.0 (14.0-18.0) g/dl Hct 44.5 44.1 (42.0-52.0) % Plt Count 215 226 (160-400) X10*3/uL BMP 10/10/24 12:28 Sodium 137 Potassium 4.3 Chloride 104 Carbon Dioxide 26 BUN 16 Creatinine 0.99 Calcium 9.8 Assessment and Plan (1) Acute cerebral infarction: Status: Acute Acute ischemic infarct in the distribution of the right anterior cerebral artery with him parasagittal frontal and parietal infarct. CTA shows attenuation of the right anterior cerebral artery beyond the aid 3 segment, suggesting occlusion. Remainder of the arteries appeared to be wide open. No hemodynamically significant carotid disease. Calcified plaque at the origin of both internal carotids without significant stenosis. Rule out embolic process. Recommendations: Aspirin 81 mg a day, Plavix 75 mg a day. He atorvastatin 80 mg. PT, OT and rehabilitation. Echocardiogram with bubble study. Procedures Date of Service Date of Service: 10/11/24
--- NOTE | 2024-10-11 10:35 | P.PNIM_ITS ---
Subjective Subjective Date of Service: 10/11/24 Review of Systems Follow up Stroke, emcephalopathy Physical Exam 2 Vital Signs: Vital Signs: Last Vital Signs Temp 98.5 F 10/11/24 07:37 Pulse 75 10/11/24 07:37 Resp 16 10/11/24 07:37 BP 167/83 H 10/11/24 07:37 Pulse Ox 99 10/11/24 07:37 O2 Del Method Room Air 10/11/24 07:37 BMI result Body Mass Index 25.0 Appearing in no acute distress lung sounds are clear to auscultation heart regular rate rhythm, clear S1, S2 positive bowel sounds, abdomen is soft, nontender neuro patient is alert, intermittent confusion Objective Data Active Medications Acetaminophen (Acetaminophen 325 Mg Tablet) 650 mg PO Q6H PRN PRN Reason: Pain, Mild (Pain Scale 1-3), fever or headache Aspirin (Aspirin 81 Mg Tab.Chew) 81 mg PO DAILY COUNT INCLUDES THE [facility] Atorvastatin Calcium (Atorvastatin Calcium 80 Mg Tablet) 80 mg PO BEDTIME COUNT INCLUDES THE [facility] Last Admin: 10/10/24 22:22 Dose: 80 mg Documented By: IAM Calcium Carbonate (Calcium Carbonate 750 Mg Tab.Chew) 750 mg PO Q4H PRN PRN Reason: Heartburn Enoxaparin Sodium (Enoxaparin Sodium 40 Mg/0.4 Ml Syringe) 40 mg SUBCUT Q24H COUNT INCLUDES THE [facility] Last Admin: 10/10/24 19:38 Dose: 40 mg Documented By: IAM Magnesium Hydroxide (Milk Of Magnesia 30 Ml Oral.Susp) 30 ml PO DAILY PRN PRN Reason: Constipation Melatonin (Melatonin 3 Mg Tablet) 6 mg PO BEDTIME PRN PRN Reason: Insomnia Ondansetron HCl (Ondansetron Hcl 4 Mg/2 Ml Vial) 4 mg IVPUSH Q8H PRN PRN Reason: Nausea and Vomiting Labs 10/11/24 08:02 10/11/24 08:02 Labs: Laboratory Results - last 24 hr 10/10/24 10/10/24 10/10/24 11:45 11:52 12:28 MCV 91.2 MCH 30.7 MCHC 33.7 RDW 12.9 Plt Count 215 MPV 9.7 Immature Gran % (Auto) 0.7 H Neut % (Auto) 59.8 Lymph % (Auto) 28.9 [place] % (Auto) 9.5 Eos % (Auto) 0.7 Baso % (Auto) 0.4 Lymph # (Auto) 1.6 [place] # (Auto) 0.5 Eos # (Auto) 0.0 Baso # (Auto) 0.0 Abs Immat Gran (auto) 0.04 H Absolute Neuts (auto) 3.3 Absolute Nucleated RBC 0.000 Nucleated RBC % (auto) 0.0 PT 11.0 Whole Blood PT 12.9 INR 0.9 Whole Blood INR 1.1 APTT 30.8 Anion Gap 11 L Estim Creat Clear Calc 59.5 Estimated GFR > 60 POC Glucose 77 Random Glucose 88 Estimat Average Glucose Hemoglobin A1c % Calcium 9.8 Troponin I High Sens 4.8 Triglycerides 151 H Cholesterol 216 H LDL Cholesterol, Calc 149 H HDL Cholesterol 37 L 10/11/24 10/11/24 00:56 08:02 MCV 90.7 MCH 30.9 MCHC 34.0 RDW 12.8 Plt Count 226 MPV 10.7 Immature Gran % (Auto) 0.6 H Neut % (Auto) 57.6 Lymph % (Auto) 28.6 [place] % (Auto) 11.3 H Eos % (Auto) 1.3 Baso % (Auto) 0.6 Lymph # (Auto) 2.0 [place] # (Auto) 0.8 Eos # (Auto) 0.1 Baso # (Auto) 0.0 Abs Immat Gran (auto) 0.04 H Absolute Neuts (auto) 4.1 Absolute Nucleated RBC 0.000 Nucleated RBC % (auto) 0.0 PT Whole Blood PT INR Whole Blood INR APTT Anion Gap Estim Creat Clear Calc Estimated GFR POC Glucose 106 Random Glucose Estimat Average Glucose 105 Hemoglobin A1c % 5.3 Calcium Troponin I High Sens Triglycerides Cholesterol LDL Cholesterol, Calc HDL Cholesterol Assessment and Plan (1) Adult failure to thrive: Status: Acute (2) Acute cerebral infarction: Status: Acute Plan 73 year old man admitted for stroke, has not seen a pcp in more than 4 years Stroke MRI showing acute cerebral infarction in anterior right parasagittal frontal lobe and right parasagittal frontal parietal junction, chronic lacunar infarct in the lateral right frontal deep white matter, bilateral frontal and parietal ischemic white matter lesions Monitor on telemetry Neurology consultation pending Echocardiogram results pending Aspirin and statin TSH, A1c 5.3 PT/OT rec STR, and speech eval pending Acute encephalopathy, unspecified Could be multifactorial secondary to hospitalization, stroke and alcohol abuse Monitor mental status Elevated blood pressure reading No history of hypertension Monitor for now, consider adding antihypertensive if continues to be elevated Alcohol abuse drinks 3 beers and 3-4 nips of rum most days no withdrawal symptoms at this time monitor on CIWA DVT prophylaxis with Lovenox Attending Dr. Marques Full code Quality Stroke Does the patient have a stroke diagnosis?: Yes Reason for No Anti-thrombotic by Day Two: N/A - Med Ordered VTE Prior VTE?: No VTE Risk Level:: Medical - moderate - high VTE Device Contraindication: Treatment Not Indicated VTE Drug Contraindication: N/A - Med Ordered
[2024-10-11 10:37] LABS: Anion Gap 12 (12-20); Blood Urea Nitrogen 19 mg/dL (9-16); Calcium 9.1 mg/dL (8.4-10.2); Carbon Dioxide 23 mmol/L (22-29); Chloride 106 mmol/L (96-108); Cholesterol 217 mg/dL (<200); Creatinine Clr Calc Pharmacy 58.9; Estimated Glomerular Filt Rate > 60; Glucose Random 94 mg/dL (60-115); HDL Cholesterol 34 mg/dL (>40); LDL Cholesterol Calculated 145 mg/dL (<100); Potassium 3.9 mmol/L (3.3-5.1); Sodium 137 mmol/L (135-145); Triglycerides 193 mg/dL (<150)
[2024-10-11 10:52] LABS: Thyroid Stimulating Hormone 1.23 uIU/mL (0.32-4.0)
[2024-10-11] MEDS: Aspirin 81 MG TAB.CHEW PO (10:56)
--- NOTE | 2024-10-11 12:35 | MHC.CM.PN ---
CM met with Patient and his Significant Other/Desiree at bedside, and addressed IMM with him, with the assist of a [facility] Railway Switchman. Patient lives alone in an apartment and he required no services nor DME [employer]. PT is recommending STR and Patient is agreeable to a local SNF search. Per Patient and Desiree, Patient filled out a HCP yesterday, where Patient named Desiree, as his HCP Agent. Patient has no PCP; the PCP pamphlet has been given to him and CM has requested CM physical therapist assistant's assist in locating Patient a PCP. CM will follow.
[2024-10-11] MEDS: Clopidogrel Bisulfate 75 MG TABLET PO (14:17)
--- NOTE | 2024-10-11 18:18 | PM.DS ---
DS: Providers Provider Date of admission: 10/10/24 15:53 Primary care physician: None Physician Consults: 10/10/24 15:40 Consult to Neurology Routine Consulting Provider: [facility] Reason for consultation: stroke DS: Diagnosis Discharge Diagnosis (1) Acute cerebral infarction: Status: Acute (2) Adult failure to thrive: Status: Acute DS: Summary Hospital Course Hospital Course: HP as per admitting provider. 73-year-old man presenting with dizziness and unsteadiness. Patient reports that this has been ongoing for several years he has not been seen by a primary care provider for over 4 years. Apparently he had fallen 3 times hitting his head at home.He also drinks alcohol most days and his said that he doesnt eat very well especially on days hes drinking. The plan was to have patient be seen by Physical therapy for placement but patient developed left-sided weakness while working with physical therapy. He denied chest pain, sob, nausea, vomiting, diarrhea, recent travel, sick contacts. In the ER, labs wnl, CT of the brain showed acute cerebral infarcts an MRI showed acute cerebral infarcts and anterior right parasagittal frontal lobe and right parasagittal frontoparietal junction. There is also chronic lacunar infarcts seen in anterior lateral right frontal deep white matter. Patient will be admitted for further mamagement of stroke. Stroke. MRI showing acute cerebral infarction in anterior right parasagittal frontal lobe and right parasagittal frontal parietal junction, chronic lacunar infarct in the lateral right frontal deep white matter, bilateral frontal and parietal ischemic white matter lesions. Started on aspirin and statin, neurology rec plavix as well. PT/OT rec STR +++++ Acute encephalopathy, unspecified. Could be multifactorial secondary to hospitalization, stroke and alcohol abuse Monitor mental status++++ Elevated blood pressure reading. started on lisinopril Alcohol abuse . drinks 3 beers and 3-4 nips of rum most days. no withdrawal symptoms at this time.. Monitored on [facility] Physical Exam Vital Signs: Vital Signs: Last Vital Signs Temp 98.9 F 10/11/24 15:23 Pulse 77 10/11/24 15:23 Resp 14 10/11/24 15:23 BP 147/67 H 10/11/24 15:23 Pulse Ox 97 10/11/24 15:23 O2 Del Method Room Air 10/11/24 15:23 BMI result Body Mass Index 25.0 DS: Data Data Completed and Pending Labs on day of discharge: Laboratory Results - last 24 hr 10/11/24 10/11/24 00:56 08:02 WBC 7.1 RBC 4.86 Hgb 15.0 Hct 44.1 MCV 90.7 MCH 30.9 MCHC 34.0 RDW 12.8 Plt Count 226 MPV 10.7 Immature Gran % (Auto) 0.6 H Neut % (Auto) 57.6 Lymph % (Auto) 28.6 [place] % (Auto) 11.3 H Eos % (Auto) 1.3 Baso % (Auto) 0.6 Lymph # (Auto) 2.0 [place] # (Auto) 0.8 Eos # (Auto) 0.1 Baso # (Auto) 0.0 Abs Immat Gran (auto) 0.04 H Absolute Neuts (auto) 4.1 Absolute Nucleated RBC 0.000 Nucleated RBC % (auto) 0.0 Sodium 137 Potassium 3.9 Chloride 106 Carbon Dioxide 23 Anion Gap 12 BUN 19 H Creatinine 1.00 Estim Creat Clear Calc 58.9 Estimated GFR > 60 POC Glucose 106 Random Glucose 94 Estimat Average Glucose 105 Hemoglobin A1c % 5.3 Calcium 9.1 D Triglycerides 193 H Cholesterol 217 H LDL Cholesterol, Calc 145 H HDL Cholesterol 34 L TSH 1.23 Discharge Plan Discharge Patient Disposition: Xfer SNF Discharge Diagnosis: Stroke Referrals: Shila Mayers MD [Physician] - 1 Week Discharge Medications: New aspirin 81 mg Tablet,Chewable 81 mg PO DAILY Qty: 30 0RF atorvastatin 80 mg Tablet 80 mg PO BEDTIME Qty: 30 0RF clopidogrel 75 mg Tablet 75 mg PO DAILY Qty: 30 0RF No Action No Known Home Meds Diet: Advance to usual diet Activity on Discharge: As tolerated Stand Alone Forms: Patient Portal Discharge page Print Language: [place] Care Plan Goals: Transfer to short term rehab for physical therapy Health Concerns: Stroke alcohol abuse smoker Plan of Treatment: Find a primary care provider for medical care and follow up Follow up with neurologist as needed Assessment: See discharge summary
[2024-10-11] MEDS: Enoxaparin Sodium 40 MG/0.4 ML SYRINGE SUBCUT (18:44)
[2024-10-11] MEDS: Atorvastatin Calcium 80 MG TABLET PO (22:08)
[2024-10-11] MEDS: Melatonin 3 MG TABLET 6 MG PO (22:08)
[2024-10-12] VITALS (7 sets, daily range): BP systolic 122–164; BP diastolic 59–79; PULSE 71–98; RESP 15–22; TEMP 36.4–37.4; O2SAT 94–99
[2024-10-12] MEDS: Clopidogrel Bisulfate 75 MG TABLET PO (09:33)
[2024-10-12] MEDS: Aspirin 81 MG TAB.CHEW PO (09:34)
[2024-10-12] MEDS: lisinopriL 2.5 MG TABLET PO (09:35)
--- NOTE | 2024-10-12 13:17 | P.PNIM_ITS ---
Subjective Subjective Date of Service: 10/12/24 Interval History: No acute issues overnight. Review of Systems Per family Denies chest pain Denies shortness of breath Denies nausea vomiting diarrhea Denies fever chills Physical Exam 2 Vital Signs: Vital Signs: Last Vital Signs Temp 99.3 F 10/12/24 11:15 Pulse 74 10/12/24 11:15 Resp 20 10/12/24 11:15 BP 142/69 H 10/12/24 11:15 Pulse Ox 98 10/12/24 11:15 O2 Del Method Room Air 10/12/24 11:15 BMI result Body Mass Index 25.0 Const: Other: Awake alert resting quietly in bed Resp: Other: Clear to auscultation bilaterally no rales rhonchi or wheezes Cardio: Other: No S4; positive S1-S2; no S3 murmurs rubs or gallops GI: Other: Soft nontender nondistended normoactive bowel sounds Neuro: Other: Awake alert nonverbal. Left hemiparesis 4-5. Right side moves normally Extrem: Other: No edema bilaterally Objective Data Active Medications Acetaminophen (Acetaminophen 325 Mg Tablet) 650 mg PO Q6H PRN PRN Reason: Pain, Mild (Pain Scale 1-3), fever or headache Aspirin (Aspirin 81 Mg Tab.Chew) 81 mg PO DAILY [facility] Last Admin: 10/12/24 09:34 Dose: 81 mg Documented By: PAOLA Atorvastatin Calcium (Atorvastatin Calcium 80 Mg Tablet) 80 mg PO BEDTIME [facility] Last Admin: 10/11/24 22:08 Dose: 80 mg Documented By: NATALEE Calcium Carbonate (Calcium Carbonate 750 Mg Tab.Chew) 750 mg PO Q4H PRN PRN Reason: Heartburn Clopidogrel Bisulfate (Clopidogrel Bisulfate 75 Mg Tablet) 75 mg PO DAILY [facility] Last Admin: 10/12/24 09:33 Dose: 75 mg Documented By: PAOLA Enoxaparin Sodium (Enoxaparin Sodium 40 Mg/0.4 Ml Syringe) 40 mg SUBCUT Q24H [facility] Last Admin: 10/11/24 18:44 Dose: 40 mg Documented By: NATALEE Lisinopril (Lisinopril 2.5 Mg Tablet) 2.5 mg PO DAILY [facility]; Protocol Last Admin: 10/12/24 09:35 Dose: 2.5 mg Documented By: HO.RUANES Magnesium Hydroxide (Milk Of Magnesia 30 Ml Oral.Susp) 30 ml PO DAILY PRN PRN Reason: Constipation Melatonin (Melatonin 3 Mg Tablet) 6 mg PO BEDTIME [facility] Last Admin: 10/11/24 22:08 Dose: 6 mg Documented By: NATALEE Ondansetron HCl (Ondansetron Hcl 4 Mg/2 Ml Vial) 4 mg IVPUSH Q8H PRN PRN Reason: Nausea and Vomiting Labs 10/11/24 08:02 10/11/24 08:02 Assessment and Plan (1) Acute cerebral infarction: Status: Acute Plan 73 year old man admitted for stroke, has not seen a pcp in more than 4 years . 1.Acute cerebral infarction in anterior right parasagittal frontal lobe and right parasagittal frontal parietal junction, chronic lacunar infarct in the lateral right frontal deep white matter, bilateral frontal and parietal ischemic white matter lesions -neuro exam stable -echo unremarkable -continue Lipitor/Plavix/aspirin as ordered -awaiting short-term rehab placement 2.Acute encephalopathy, unspecified -family states back at baseline -treat comorbidities 3.Alcohol abuse -CIWA 0 since admit -continue to monitor Lovenox Full code Requires ongoing hospitalization pending short-term rehab placement Quality Stroke Does the patient have a stroke diagnosis?: Yes Reason for No Anti-thrombotic by Day Two: N/A - Med Ordered VTE Prior VTE?: No VTE Risk Level:: Medical - moderate - high VTE Device Contraindication: Treatment Not Indicated VTE Drug Contraindication: N/A - Med Ordered
--- NOTE | 2024-10-12 13:31 | MHC.SP.ADU ---
Referring provider: Yolanda Dempsey Reason for Referral: Cognition/Language Type of Treatment: 67778 Standardized Cognitive Performance Testing, per hour Date of Plan of Treatment: 10/11/24 Onset of Symptoms/Illness: 10/10/24 Date Treatment Started: 10/11/24 Medical Diagnosis: Cognitive/linguistic deficits s/p Stroke MRI showing acute cerebral infarction in anterior right parasagittal frontal lobe and right parasagittal frontal parietal junction, chronic lacunar infarct in the lateral right frontal deep white matter, bilateral frontal and parietal ischemic white matter lesions Primary Speech Language Diagnosis: R41.844 Frontal lobe and executive function 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 Medication List: Recent Hospitalizations: Respiratory Needs: Room Air Patient Orientation: Person, Place Only Social History: Employment Status: Unemployed Highest level of education obtained: Current Living Situation: Home with . Assistive Devices in use: Comment: Past Speech Language Therapy: Other Therapies Seen in Current Calendar Year: Other: Swallowing History: Dysphagia Specific: Within Functional Limits Comments: Pre-eval Risk for Aspiration: Weak Voice Pre-evaluation Dietary Consistencies: Regular Pre-eval Liquid Intake: Thin Pre-eval Medication Intake: Whole with Liquid Reported Speech, Language, Cognition difficulties: Understanding Attention Memory Cognition Problem Solving Voice Comments: Pt presents with adequate self-awareness, able to state his name, birthday and place of . Motor speech production WFL at the word, phrase and sentence levels during social exchanges. Pt partner notes pt voice sounds weak, though pt is able to maintain adequate voice volume when speaking in conversation. Verbal expression generally efficient, as pt is able to engage in small talk without difficulty. Pt shows mild to moderate deficits in orientation to time, situation and place. FDC, short term and prospective memory moderately decreased. Attention span is brief, with adequate focus in simple conversation but difficulties noted in sustaining attention during medical conversations. Slowed processing speed evident as pt became more fatigued across simple tasks presented during evaluation. Anticipate pt will benefit from short term rehabilitation to promote recover of PLOF, encourage caregivers to use most effective strategies and conduct differential diagnosis to ensure appropriate treatment approaches are implemented. Quality of Life: Patient Stated Goal of Speech-Language Therapy: Resume PLOF, maintain satisfactory quality of life Assessment Speech Production: Within Functional Limits Clinical Impression: Intact Observations: Informal Voice Assessment: Voice Loudness: Mildly Soft/Quiet Voice Nasal Resonance: Normal Voice Oral Resonance: Normal Voice Phonatory-based Quality: Normal Voice Pitch: Normal Voice Other Observations: Clinical Impression: Intact Clinicial Observations: Mild vocal weakness evident as pt communicated across length of evaluation. Tests of Speech & Lang Adults: BDAE BNT Clinical Impression: Impaired Observations: Word finding WFL, semantic descriptions accurate, verbal expression adequate, good production, smooth coordination of speech in Hebrew, use of elaboration to describe simple, familiar concepts. Mild to moderate deficits evident in processing verbal information, family noted 'direct questions are better'. Pt struggles with abstract reasoning, specifically in the presence of disorientation. Auditory comprehension inconsistent. Recc PRESALES CONSULTANT intervention through rehabilitation model. Tests of Cognition: Clinical Impression: Did Not Test Observations: Pt was fluent in speech and able to name items in the room. He was asked to fill out his name which he did carefully. He was asked to draw a line and bisect it, but drwa a short line only on the left side of the paper. His drawing of a clock was disorganized. PRESALES CONSULTANT had to draw the [place] for him. He bunched the numbers to the right side of the clock. Further Cognitive testing is recommended to picker machine operator on subtle right hemisphere disorder deficits. Augmentative and Alternative Communication: Did Not Test Observations: Impressions and Recommendations Summary: Impact on Daily Function/Activity Limitations: Daily Activities: Moderate Interpersonal Interactions: Moderate Education: None Employment: None Community: Moderate Prognosis for Improvement: Good Comment: Recommendation for Speech Therapy: Outpatient Speech Therapy Discharged with Instructions for Home Use Speech Therapy through [facility] Speech Therapy through Rehab Facility Frequency/Duration: x 1-2 follow-ups Date Range for Service Requested: Admission Time to Reassess: PRN Recommended Referrals to be Discussed with Primary Care Provider: Neuropsychological Eval Patient Education: Completed: Yes Patient/Caregiver Education: Described Results of Evaluation Patient expressed understanding of evaluation Family/Caregivers expressed understanding of results Comments/Barriers to Learning: Master Ship Clinican/Clinical Fellow: No Supervisory Statement: N/A Speech Language Pathologist: Luly Desai M.S., [facility]-PRESALES CONSULTANT
[2024-10-12] MEDS: Enoxaparin Sodium 40 MG/0.4 ML SYRINGE SUBCUT (20:13)
[2024-10-12] MEDS: Melatonin 3 MG TABLET 6 MG PO (20:13)
[2024-10-12] MEDS: Atorvastatin Calcium 80 MG TABLET PO (20:13)
[2024-10-13] VITALS (7 sets, daily range): BP systolic 118–150; BP diastolic 65–89; PULSE 80–100; RESP 16–20; TEMP 36.4–37.4; O2SAT 94–97
--- NOTE | 2024-10-13 13:50 | MHC.CM.PN ---
CM met with Patient and his Significant Other/HCP/Desiree; [facility] first choice. CM will follow.
--- NOTE | 2024-10-13 14:40 | MHC.SL.SWA ---
Speech Pathologist Impression: Risk of Aspiration Due to: Weak Voice, confusion, lethargy Dysphasia Diet Status: Recommend DOWNGRADE diet to Chopped/Advanced (NDD3) continue on thin liquids, pills whole in puree or with liquid as preferred. Recommend 1-1 feeding, encourage independence but support through meal, aspiration precautions. Do not attempt if patient is lethargic, discontinue if patient's level of alertness wanes during meal. Liquid Consistency and Strategies for Safe Swallow: Liquid Intake Recommendation: Thin Liquid Intake Strategies: Small Sips Solid Food Consistency: Dietary Recommendations: Chopped/Advanced (NDD3) Additional Modifications to Solid Foods: 1-1 feeding with aspiration precautions. Do not attempt if patient is lethargic, discontinue if patient's level of alertness wanes during meal. Oral Medication Intake: Whole with Liquid Please contact the pharmacy regarding appropriate crushable or liquid drug formulations that are available whenever modified delivery is recommended. Compensatory Strategies and Precautions to be Taken for Safe Swallow: Sitting Upright (90 deg) Liquids from Cup Small Bites and Sips Alternate Liquids/Solids Supervision While Eating and Drinking for Safe Swallow: Total Assistance (1:1) Foods to Avoid: Difficult to chew solids, too large pieces of food, mixed consistencies. Swallowing Recommended Treatments: Compens. Strategy Educat. Recommendation for Speech: Outpatient Speech Therapy Discharged with Instructions for Home Use Speech Therapy through [facility] Speech Therapy through Rehab Facility Comment: RESTAURANT LEAD alerted to patient by PT this morning, who had concerns about changed in status noting increased weakness, lethargy and confusion which was change from previous day. PT concerned patient not appropriate for morning meal, felt tray should be held. RESTAURANT LEAD in AM noted patient very lethargic, not appropriate for feeding or swallow assessment at that time, recommended tray be held. RESTAURANT LEAD returned mid-day, with patient now awake and alert, though presenting as confused, weak, mildly agitated, face red with some perspiration. RN ? if patient had fever, none evident per her report. Patient had also repeat CT, results were pending at time of re-assessment. RESTAURANT LEAD notes indicated he had been seen only for speech/cognitive assessment on 10/12, with clinical swallow not ordered, patient on Regular diet with thin liquids. RESTAURANT LEAD gave patient tsp amount of water initially, with patient producing timely oral phase and swallow, laryngeal elevation palpated and WFL. Patient then given yogurt from tray, with patient producing timely oral and pharyngeal phase of swallow, no clinical signs of aspiration. Patient then given bites of sliced banana, which he masticated and swallowed with good oral clearance. Finally patient given piece of pineapple from fruit salad on tray, with patient producing a prolonged, slow period of mastication followed by swallow. Throughout, patient required full support during feeding, did not initiate to hold cup or utensils, appeared weak and confused. Recommend DOWNGRADE diet to Chopped/Advanced (NDD3) continue on thin liquids, pills whole in puree or with liquid as preferred. Recommend 1-1 feeding, encourage independence but support through meal, aspiration precautions. Do not attempt if patient is lethargic, discontinue if patient's level of alertness wanes during meal. RESTAURANT LEAD will continue to follow. MD/RD advised of recommendations by secure gretel, RN in person. Frequency/Duration: Date Range for Service Req: Admission Timeline to reassess: PRN Bridge Toll Collector Clinican/Clinical Fellow: No Supervisory Statement: I have reviewed and agree with the student/clinical fellow's documentation: N/A Speech Language Pathologist: Sara Adams M.A., [facility]-RESTAURANT LEAD
--- NOTE | 2024-10-13 15:23 | HO.PM.IMPN ---
Subjective Subjective Date of Service: 10/13/24 Interval History: Subjective right-sided weakness this a.m. with minimal change in responsiveness. Self-limited Review of Systems Unable to obtain Physical Exam Vital Signs: Vital Signs: Last Vital Signs Temp 98.0 F 10/13/24 10:54 Pulse 100 10/13/24 10:54 Resp 16 10/13/24 10:54 BP 142/65 H 10/13/24 10:54 Pulse Ox 96 10/13/24 10:54 O2 Del Method Room Air 10/13/24 10:54 BMI result Body Mass Index 25.0 Const: Other: Awake alert resting quietly in bed Resp: Other: Clear to auscultation bilaterally no rales rhonchi or wheezes Cardio: Other: No S4; positive S1-S2; no S3 murmurs rubs or gallops GI: Other: Soft nontender nondistended normoactive bowel sounds Neuro: Other: Awake alert nonverbal. Left hemiparesis 4-5. Right side moves normally Extrem: Other: No edema bilaterally Objective Data Active Medications Acetaminophen (Acetaminophen 325 Mg Tablet) 650 mg PO Q6H PRN PRN Reason: Pain, Mild (Pain Scale 1-3), fever or headache Aspirin (Aspirin 81 Mg Tab.Chew) 81 mg PO DAILY [facility] Last Admin: 10/13/24 09:20 Dose: Not Given Documented By: PINO Non-Admin Reason: Physician Held Med Atorvastatin Calcium (Atorvastatin Calcium 80 Mg Tablet) 80 mg PO BEDTIME [facility] Last Admin: 10/12/24 20:13 Dose: 80 mg Documented By: PACO Calcium Carbonate (Calcium Carbonate 750 Mg Tab.Chew) 750 mg PO Q4H PRN PRN Reason: Heartburn Clopidogrel Bisulfate (Clopidogrel Bisulfate 75 Mg Tablet) 75 mg PO DAILY [facility] Last Admin: 10/13/24 09:20 Dose: Not Given Documented By: PINO Non-Admin Reason: Physician Held Med Enoxaparin Sodium (Enoxaparin Sodium 40 Mg/0.4 Ml Syringe) 40 mg SUBCUT Q24H [facility] Last Admin: 10/12/24 20:13 Dose: 40 mg Documented By: PACO Lisinopril (Lisinopril 2.5 Mg Tablet) 2.5 mg PO DAILY [facility]; Protocol Last Admin: 10/13/24 09:21 Dose: Not Given Documented By: PINO Non-Admin Reason: Physician Held Med Magnesium Hydroxide (Milk Of Magnesia 30 Ml Oral.Susp) 30 ml PO DAILY PRN PRN Reason: Constipation Melatonin (Melatonin 3 Mg Tablet) 6 mg PO BEDTIME [facility] Last Admin: 10/12/24 20:13 Dose: 6 mg Documented By: PACO Ondansetron HCl (Ondansetron Hcl 4 Mg/2 Ml Vial) 4 mg IVPUSH Q8H PRN PRN Reason: Nausea and Vomiting Labs 10/11/24 08:02 10/11/24 08:02 Assessment and Plan (1) Acute cerebral infarction: Status: Acute Plan 73 year old man admitted for stroke, has not seen a pcp in more than 4 years . 1.Acute cerebral infarction in anterior right parasagittal frontal lobe and right parasagittal frontal parietal junction, chronic lacunar infarct in the lateral right frontal deep white matter, bilateral frontal and parietal ischemic white matter lesions -minimal right-sided weakness this a.m..... Repeat CT without acute changes -slowly returned to baseline -speech has a adjusted diet -continue Lipitor/Plavix/aspirin as ordered -awaiting short-term rehab placement 2.Acute encephalopathy, unspecified -family states back at baseline -treat comorbidities 3.Alcohol abuse -CIWA 0 since admit -continue to monitor Lovenox Full code Requires ongoing hospitalization pending short-term rehab placement Quality Stroke Does the patient have a stroke diagnosis?: Yes Reason for No Anti-thrombotic by Day Two: N/A - Med Ordered VTE Prior VTE?: No VTE Risk Level:: Medical - moderate - high VTE Device Contraindication: Treatment Not Indicated VTE Drug Contraindication: N/A - Med Ordered
[2024-10-13] MEDS: Enoxaparin Sodium 40 MG/0.4 ML SYRINGE SUBCUT (20:26)
[2024-10-13] MEDS: Melatonin 3 MG TABLET 6 MG PO (20:32)
[2024-10-13] MEDS: Atorvastatin Calcium 80 MG TABLET PO (20:32)
[2024-10-14 03:11] VITALS: BP 114/56; PULSE 67; RESP 19; TEMP 36.4; O2SAT 96
[2024-10-14 06:36] LABS: MANUAL DIFF FLAG NO
[2024-10-14 06:41] LABS: Basophils Percent Auto 0.3 % (0-2); Eosinophils Absolute Auto 0.1 X10*3/uL (0.0-0.4); Eosinophils Percent Auto 1.6 % (0-4); Hematocrit 46.2 % (42.0-52.0); Hemoglobin 15.6 g/dl (14.0-18.0); Imm Gran Abs Auto 0.07 X10*3/uL (0.00-0.03); Imm Gran Pct Auto 0.8 % (0.0-0.4); Lymphocytes Absolute Auto 1.6 X10*3/uL (1.2-4.9); Lymphocytes Percent Auto 17.2 % (20-40); Mean Corpuscular HGB Conc 33.8 g/dl (31.0-36.0); Mean Corpuscular Hemoglobin 30.9 pg (27.0-33.0); Mean Corpuscular Volume 91.5 fL (80.0-98.0); Mean Platelet Volume 10.1 fL (9.4-12.4); Monocytes Percent Auto 11.3 % (2-11); Neutrophils Absolute Auto 6.2 x10*3/uL (2.0-8.3); Neutrophils Percent Auto 68.8 % (45-73); Platelet Count 232 X10*3/uL (160-400); Red Blood Count 5.05 X10*6/uL (4.60-5.80); Red Cell Distribution Width 12.7 % (11.0-16.0)
[2024-10-14 07:04] LABS: Alanine Aminotransferase 30 U/L (0-40); Albumin Level 3.9 g/dL (3.5-5.0); Alkaline Phosphatase 78 U/L (39-117); Anion Gap 15 (12-20); Aspartate Amino Transferase 42 U/L (5-37); Bilirubin Total 0.8 mg/dL (0.0-1.0); Blood Urea Nitrogen 31 mg/dL (9-16); Calcium 9.6 mg/dL (8.4-10.2); Carbon Dioxide 19 mmol/L (22-29); Chloride 103 mmol/L (96-108); Creatinine Clr Calc Pharmacy 57.7; Estimated Glomerular Filt Rate > 60; Glucose Fasting 91 mg/dL (60-99); Potassium 4.1 mmol/L (3.3-5.1); Sodium 133 mmol/L (135-145); Total Protein 7.5 g/dL (6.5-8.0)
[2024-10-14 07:07] VITALS: BP 140/67; PULSE 74; RESP 17; TEMP 36.3; O2SAT 98
[2024-10-14] MEDS: Clopidogrel Bisulfate 75 MG TABLET PO (09:17)
[2024-10-14] MEDS: lisinopriL 2.5 MG TABLET PO (09:17)
[2024-10-14] MEDS: Aspirin 81 MG TAB.CHEW PO (09:17)
[2024-10-14 10:03] VITALS: BP 140/67; PULSE 74; O2SAT 98
--- NOTE | 2024-10-14 10:30 | MHC.CM.PN ---
Per ROUNDS discussion, Patient is medically cleared for dc to SNF/STR today. Patient will dc to his first choice facility/[facility] today at 1PM, via [facility]. CM met with Patient and his Significant Other/HCP/Desiree at bedside, with Sinhala translation, and addressed IMM with them, providing them with the original and a copy has been placed on the chart.
[2024-10-14 11:17] VITALS: BP 149/77; PULSE 84; RESP 18; TEMP 36.2; O2SAT 96
--- NOTE | 2024-10-14 12:37 | PM.DS ---
DS: Providers Provider Date of Service: 10/14/24 Date of admission: 10/10/24 15:53 Date of discharge: 10/14/24 Primary care physician: None Physician Consults: 10/10/24 15:40 Consult to Neurology Routine Consulting Provider: [facility] Reason for consultation: stroke DS: Diagnosis Discharge Diagnosis (1) Acute cerebral infarction: Status: Acute DS: Summary Hospital Course Hospital Course: HP as per admitting provider. 73-year-old man presenting with dizziness and unsteadiness. Patient reports that this has been ongoing for several years he has not been seen by a primary care provider for over 4 years. Apparently he had fallen 3 times hitting his head at home.He also drinks alcohol most days and his said that he doesnt eat very well especially on days hes drinking. The plan was to have patient be seen by Physical therapy for placement but patient developed left-sided weakness while working with physical therapy. He denied chest pain, sob, nausea, vomiting, diarrhea, recent travel, sick contacts. In the ER, labs wnl, CT of the brain showed acute cerebral infarcts an MRI showed acute cerebral infarcts and anterior right parasagittal frontal lobe and right parasagittal frontoparietal junction. There is also chronic lacunar infarcts seen in anterior lateral right frontal deep white matter. Patient will be admitted for further mamagement of stroke. MRI showing acute cerebral infarction in anterior right parasagittal frontal lobe and right parasagittal frontal parietal junction, chronic lacunar infarct in the lateral right frontal deep white matter, bilateral frontal and parietal ischemic white matter lesions Hospital Course Admitted to telemetry where monitor failed to demonstrate any acute dysrhythmias. Patient started on high dose statin/Plavix/aspirin. Patient originally had a left hemiparesis that did improve somewhat however progressed. Repeat CT scan was done which failed to demonstrate any hemorrhagic conversion. On the date of discharge he remains aphasic with a leftsided deficit. Patient has a history of alcohol abuse as well as tobacco abuse. Patient's significant other states that each day she talks with him when she can understand him he talks about drinking. Discussed with addiction Medicine; appropriate to give naltrexone for cravings as this is bothersome to patient. At this time he is medically acceptable for discharge Time Attestation Discharge Coordination Time (in mins): 35 Quality: Safe Use of Opioids Does Pt have an Active Cancer Diagnosis on the Problem List?: No Quality: Stroke Does the patient have a stroke diagnosis?: No Physical Exam Vital Signs: Vital Signs: Last Vital Signs Temp 97.2 F 10/14/24 11:17 Pulse 84 10/14/24 11:17 Resp 18 10/14/24 11:17 BP 149/77 H 10/14/24 11:17 Pulse Ox 96 10/14/24 11:17 O2 Del Method Room Air 10/14/24 11:17 BMI result Body Mass Index 25.0 Const: Other: Awake alert resting quietly in bed Resp: Other: Clear to auscultation bilaterally no rales rhonchi or wheezes Cardio: Other: No S4; positive S1-S2; no S3 murmurs rubs or gallops GI: Other: Soft nontender nondistended normoactive bowel sounds Neuro: Other: Awake alert nonverbal. Left hemiparesis 4-5. Right side moves normally Extrem: Other: No edema bilaterally DS: Data Data Completed and Pending Labs on day of discharge: Laboratory Results - last 24 hr 10/14/24 06:15 WBC 9.0 RBC 5.05 Hgb 15.6 Hct 46.2 MCV 91.5 MCH 30.9 MCHC 33.8 RDW 12.7 Plt Count 232 MPV 10.1 Immature Gran % (Auto) 0.8 H Neut % (Auto) 68.8 Lymph % (Auto) 17.2 L Canadian % (Auto) 11.3 H Eos % (Auto) 1.6 Baso % (Auto) 0.3 Lymph # (Auto) 1.6 Canadian # (Auto) 1.0 Eos # (Auto) 0.1 Baso # (Auto) 0.0 Abs Immat Gran (auto) 0.07 H Absolute Neuts (auto) 6.2 Absolute Nucleated RBC 0.000 Nucleated RBC % (auto) 0.0 Sodium 133 L Potassium 4.1 Chloride 103 Carbon Dioxide 19 L Anion Gap 15 BUN 31 H Creatinine 1.02 Estim Creat Clear Calc 57.7 Estimated GFR > 60 Fasting Glucose 91 Calcium 9.6 Total Bilirubin 0.8 AST 42 H ALT 30 Alkaline Phosphatase 78 Total Protein 7.5 Albumin 3.9 Discharge Plan Discharge Anticipated Discharge Date/Time: 10/14/24 12:35 Patient Disposition: [facility] Discharge Diagnosis: Stroke Referrals: [facility] [Outside] - 1 Week Shila Mayers MD [Physician] - 1 Week Discharge Medications: New atorvastatin 80 mg Tablet 80 mg PO BEDTIME Qty: 30 0RF clopidogrel 75 mg Tablet 75 mg PO DAILY Qty: 30 0RF aspirin 81 mg Tablet,Chewable 81 mg PO DAILY Qty: 30 0RF lisinopril 2.5 mg Tablet 2.5 mg PO DAILY Qty: 30 0RF Protocol: Hold for SBP< HOLD for SBP < : 90 Discharge Orders: Discharge Order (Routine); Ordered 10/14/24 Ordered By: Sav Mak Diet: Advance to usual diet Activity on Discharge: As tolerated Stand Alone Forms: Patient Portal Discharge page Print Language: Mohawk Care Plan Goals: Transfer to short term rehab for physical therapy Health Concerns: Stroke alcohol abuse smoker Plan of Treatment: Find a primary care provider for medical care and follow up Follow up with neurologist as needed Assessment: See discharge summary
--- NOTE | 2024-10-14 12:42 | MHC.SL.SWA ---
Speech Pathologist Impression: Within Functional Limits Risk of Aspiration Due to: Weak Voice Dysphasia Diet Status: No Change Liquid Consistency and Strategies for Safe Swallow: Liquid Intake Recommendation: Thin Liquid Intake Strategies: Small Sips Solid Food Consistency: Dietary Recommendations: Chopped/Advanced (NDD3) Additional Modifications to Solid Foods: 1-1 feeding with aspiration precautions. Do not attempt if patient is lethargic, discontinue if patient's level of alertness wanes during meal. Oral Medication Intake: Whole with Puree Please contact the pharmacy regarding appropriate crushable or liquid drug formulations that are available whenever modified delivery is recommended. Compensatory Strategies and Precautions to be Taken for Safe Swallow: Sitting Upright (90 deg) Double Swallow Small Bites and Sips Alternate Liquids/Solids Rate of Ingestion Change Avoid Specific Foods Supervision While Eating and Drinking for Safe Swallow: Total Assistance (1:1) Foods to Avoid: Difficult to chew solids, too large pieces of food, mixed consistencies. Swallowing Recommended Treatments: Compens. Strategy Educat. Recommendation for Speech: Outpatient Speech Therapy Discharged with Instructions for Home Use Speech Therapy through [facility] Speech Therapy through Rehab Facility Date Range for Service Req: Admission Timeline to reassess: PRN Assessment Services Manager Clinican/Clinical Fellow: No Supervisory Statement: I have reviewed and agree with the student/clinical fellow's documentation: N/A Speech Language Pathologist: Hattie Shultz M.A., CCC-CLINICAL APPLICATIONS MANAGER
== END 2024-10-14 14:00 | disposition skilled nursing facility (03) | DRG 65 ==
LOC: HO.ED 10-10 15:37 → HO.EDOVER 10-10 15:53 → HO.IMC 10-11 00:31
PROVIDERS: Physician Assistant; Physician Assistant Medical; Admitting Provider Nurse Practitioner Acute Care; Emergency Provider Emergency Medicine; Visit Provider Hospitalist
DX: I63.9 Cerebral infarction, unspecified (principal); G81.94 Hemiplegia, unspecified affecting left nondominant side; G93.49 Other encephalopathy; F17.210 Nicotine dependence, cigarettes, uncomplicated; R47.01 Aphasia; Z71.6 Tobacco abuse counseling; R29.706 NIHSS score 6; Z20.822 Contact with and (suspected) exposure to COVID-19; R29.6 Repeated falls; R03.0 Elevated blood-pressure reading, without diagnosis of hypertension; F10.10 Alcohol abuse, uncomplicated; Z91.81 History of falling
CPT/HCPCS: 0241U; 36415; 70450; 70496; 70498; 70551; 72125; 80048; 80053; 80061; 80307; 81003; 82947; 83036; 83735; 84443; 84484; 85025; 85610; 85730; 92526; 93005; 93306; 96125; 97162; 97166; 97530; 97535; 99285; J1650; Q9967

== ENCOUNTER → 2024-10-09 12:38 | Outpatient (BNV) | payer MEDICARE, MEDICAID, SELFPAY | PROVIDERS: Admitting Provider Nurse Practitioner Acute Care; Emergency Provider Emergency Medicine; Visit Provider Internal Medicine Cardiovascular Disease | DX: R42 Dizziness and giddiness (principal) | CPT/HCPCS: 93010 ==

== ENCOUNTER → 2024-10-10 11:29 | Outpatient (BNV) | payer MEDICARE, MEDICAID, SELFPAY | PROVIDERS: Admitting Provider Nurse Practitioner Acute Care; Emergency Provider Emergency Medicine; Visit Provider Internal Medicine Cardiovascular Disease | DX: I63.9 Cerebral infarction, unspecified (principal) | CPT/HCPCS: 93010 ==

== ENCOUNTER 2024-10-10 15:53 | Outpatient (BNV) | payer MEDICARE, MEDICAID, SELFPAY | END 2024-10-11 07:00 | PROVIDERS: Admitting Provider Nurse Practitioner Acute Care; Emergency Provider Emergency Medicine; Visit Provider Internal Medicine Cardiovascular Disease | DX: I42.2 Other hypertrophic cardiomyopathy (principal); I63.9 Cerebral infarction, unspecified | CPT/HCPCS: 93306 ==

== ENCOUNTER 2024-10-10 15:53 | Outpatient (BNV) | payer MEDICARE, MEDICAID, SELFPAY | END 2024-10-13 09:52 | PROVIDERS: Admitting Provider Nurse Practitioner Acute Care; Emergency Provider Emergency Medicine; Visit Provider Radiology Diagnostic Radiology | DX: R53.1 Weakness (principal) | CPT/HCPCS: 70450 ==

== ENCOUNTER → 2024-10-10 15:53 | Outpatient (BNV) | payer MEDICARE, MEDICAID, SELFPAY | PROVIDERS: Admitting Provider Nurse Practitioner Acute Care; Emergency Provider Emergency Medicine; Visit Provider Psychiatry & Neurology Neurology | DX: I63.9 Cerebral infarction, unspecified (principal) | CPT/HCPCS: 99222 ==

== ENCOUNTER → 2024-10-10 15:53 | Outpatient (BNV) | payer MEDICARE, MEDICAID, SELFPAY | PROVIDERS: Admitting Provider Nurse Practitioner Acute Care; Emergency Provider Emergency Medicine; Visit Provider Nurse Practitioner Acute Care | DX: I63.9 Cerebral infarction, unspecified (principal) | CPT/HCPCS: 99223; 99232; 99239 ==

== ENCOUNTER 2025-06-28 13:16 | Outpatient (AMB) | payer MEDICARE, MEDICAID, SELFPAY ==
[2025-06-28 13:30] VITALS: BP 142/66; PULSE 78; TEMP 36.4; O2SAT 98
--- NOTE | 2025-06-28 13:30 | A.OFFPC_ITS ---
Vital Signs 06/28/25 13:30 Weight 137 lb 12.623 oz BP 142/66 H Blood Pressure Location Lt brachial Pulse 78 Pulse Source Pulse Oximeter Temp 97.6 F Temp Source Temporal Artery Scan Pulse Oximetry (%) 98 Oxygen Delivery Method Room Air Intake Visit Reasons: establish care Rotary Rig Engine Operator Required: Yes Rotary Rig Engine Operator Language: Lao Accompanied by: Spouse Allergies No Known Allergies Allergy (Verified 06/28/25 13:41) Medication List - Last Reconciled 06/28/25 by Yamel Cabrera PA-C aspirin 81 mg PO DAILY atorvastatin 80 mg PO BEDTIME clopidogrel 75 mg PO DAILY lisinopril 2.5 mg See Protocol PO DAILY naltrexone 25 mg (1/2 x 50 mg) PO DAILY Tobacco use date assessed: 06/28/25 Fall risk assessment: 2 + Falls in past year Last assessed Fall Risk: 06/28/25 Dental Screening Dental Screen Date: 06/28/25 Did you have a dental visit in the last 12 months?: No Did you have a dental problem in the last 6 months where you did not have access to dental care?: No Was dental information given to patient?: No HPI establish care HPI Details 74-year-old male coming to the office wi th the 1st time. In review of the notes, patient had prolonged hospital stay 09/2024 [address]iness [address] un[address]iness. CT of the brain showed acute cerebral infarcts and chronic lacunar infarcts and patient was admitted for further management. Patient was started on high-dose statin, Plavix and aspirin in left hemiparesis did somewhat improve. Patient did continue with the aphasia and left-sided deficit. Patient is also given naltrexone for alcohol use disorder to be used as needed and patient was transferred to [facility]dc facility. commodities requirements analyst Kris [id number] was used for the duration of this visit. Patient presents today to review post CVA care, left hemiparesis, depression and anxiety. Depression and anxiety were identified through a positive screening, although the patient does not feel he struggles significantly with these conditions but does feel he would benefit from counseling. The patient expressed feelings of despair due to limitations in activity. A referral for counseling was agreed upon to address these mental health concerns. The patient has a history of stroke, which has resulted in reduced strength in left arm and leg. Current medications include those for cholesterol, blood pressure, and post- stroke management. He does have 24 hour MENTAL HEALTH UNIT LEAD PSYCHOLOGIST services and is working with [facility] to get his MENTAL HEALTH UNIT LEAD PSYCHOLOGIST approved. He does also struggle with urinary incontinence and relies on adult pull-ups which need to be changed about every 4 hours to avoid urinary tract infection. Incontinence is post CVA. He does also use naltrexone occasionally for alcohol use disorder however he has significantly cut back on his alcohol use. [facility], [facility] Medical History Acute cerebral infarction Social History Household Members: None Do you presently have visiting nurse or other home services: Yes (Has partner who helps provide care for and to him) Alcohol intake: current Alcohol intake frequency: a few times a week Alcohol type: beer Patient Tobacco Use Status: Current everyday Tobacco user Tobacco use type: Cigarette Cigarettes Per Day: 5 Second Hand Smoke Exposure: No service: No Current occupational status: retired Questionnaire PHQ-9 Over the last 2 weeks, how often have you been bothered by any of the following problems? 1. Little interest or pleasure in doing things: not at all 2. Feeling down, depressed, or hopeless: several days 3. Trouble falling or staying asleep, or sleeping too much: several days 4. Feeling tired or having little energy: several days 5. Poor appetite or overeating: not at all 6. Feeling bad about yourself - or that you are a failure or have let yourself or your family down: several days 7. Trouble concentrating on things, such as reading the newspaper or watching television: not at all 8. Moving or speaking so slowly that other people could have noticed. Or the opposite - being so fidgety or restless that you have been moving around a lot more than usual: several days 9. Thoughts that you would be better off or of hurting yourself in some way: several days Total score: 6 Depression Screening Interpretation: Positive (referral to counselor ) Depression Screening Follow-up: Existing condition and Other Depression Screening Done: Yes 93277 - PHQ-9 Billing: Yes Source: Developed by Drs. Thor Estes, Stefani Jay, Mina Medrano and colleagues, with an educational zeb from [employer] Thrive Questionnaire Date Thrive assessed: 10/11/24 I am a: Parent/Caregiver What is your living situation today?: I do not have a steady places to live I am temporarily staying with others Within the past 12 months, did the food you bought not last and you didn't have the money to get more?: Sometimes True Within the past 12 months, did you worry whether your food would run out before you got money to buy more?: Sometimes True Do you have trouble paying for medicines?: Yes Do you have trouble getting transportation to medical appointments?: Yes Do you have trouble paying your heating and electricity bill?: Yes Do you have trouble taking care of your child, family member or friend?: I choose not to answer this question Do you have trouble with day-to-day activities such as bathing, preparing meals, shopping, managing finances, etc.?: Yes Are you currently unemployed and looking for a job?: No Are you interested in more education?: No Please select the resources that you would like help with: Housing/Care Home, Food, Paying for medicine, Transportation, Utilities, Care for elder or disabled and Daily support Currently or been in a relationship where the following occur: No concerns reported THRIVE Score: 5 AUDIT C Alcohol Use Questionnaire (AUDIT-C) 1. How often do you have a drink containing alcohol?: 2-4 times a month 2. How many drinks containing alcohol do you have on a typical day when you are drinking?: 3 or 4 3. How often do you have six or more drinks on one occasion?: Never Total Score: 3 Score Reviewed/Action Taken: Yes OCTAVIO-7 AMB Questionnaire OCTAVIO-7 Feeling nervous, anxious, or on edge: 1 = Several days Not being able to stop or control worryin = Several days Worrying too much about different things: 1 = Several days Trouble relaxin = Several days Being so restless that it is hard to sit still: 1 = Several days Becoming easily annoyed or irritable: 2 = More than half the days Feeling afraid as if something awful might happen: 1 = Several days Total OCTAVIO-7 score (0-4 normal; 5-9 mild; 10-14 moderate; 15-21 severe): 8 Source: Developed by Drs. Thor Estes, Stefani Jay, Mina Medrano and colleagues, with an educational zbe from [employer]. OCTAVIO-7 Assessment Billing OCTAVIO-7 Assessment Tool: OCTAVIO-7 Assessment 87469 Review of Systems Const Denies body aches, Denies fatigue, Denies fever(s), Denies frequent falls, Denies headache(s) and Denies weakness Eyes Reports no additional complaints and Denies change in vision ENT Denies dysphagia, Denies dizziness, Denies headache(s) and Denies odynophagia Card Denies chest pain, Denies leg edema, Denies lightheadedness and Denies dyspnea Resp Denies cough and Denies dyspnea GI Denies dysphagia, Denies dyspepsia, Denies nausea, Denies odynophagia and Denies vomiting Denies dysuria, Denies urinary frequency, Denies urinary hesitancy and Denies urinary urgency Musc Reports as per HPI, Reports abnormal gait (Uses wheelchair), Denies back pain and Denies myalgias Skin/Breast Reports system reviewed and no additional complaints, except as documented Neuro Reports abnormal gait (Uses wheelchair), Denies dizziness, Denies frequent falls, Denies headache(s) and Denies weakness Psych Reports no additional complaints Endo Denies fatigue Physical exam (Primary Care) Vital Signs: Last Vital Signs Temp 97.6 F 06/28/25 13:30 Pulse 78 06/28/25 13:30 BP 142/66 H 06/28/25 13:30 Pulse Ox 98 06/28/25 13:30 Oxygen Delivery Method Room Air 06/28/25 13:30 Tobacco/Smoking Status: Tobacco use Status Tobacco use date assessed 06/28/25 06/28/25 13:36 Patient Tobacco Use Status Current everyday Tobacco 06/28/25 13:36 Tobacco use type Cigarette 06/28/25 13:36 PHQ-9: PHQ-9 Score PHQ-9: Total score 6 06/28/25 14:08 Depression Screening Interpretation: Positive (referral to counselor ) Depression Screening Follow-up: Existing condition and Other Thrive Assessment: Date of Thrive Assessment Date Thrive assessed 10/11/24 06/28/25 13:36 Currently or been in a relationship where the following occur: No concerns reported Const General: cooperative, healthy appearing, comfortable and no acute distress Orientation/consciousness: patient oriented x3 HENMT Head: Yes normocephalic Ears: hearing grossly normal bilaterally, external ears normal, TM's normal bilaterally and EAC's normal General nose exam: Normal external nose present Face and sinus: Yes normal facial exam and Yes sinuses nontender Mouth: Normal oral and palatal mucosa present and tongue normal Throat: Yes posterior oropharynx normal Eyes General: appearance normal, both eyes and all related structures Conjunctivae: conjunctivae normal Pupils: Equal, round and reactive pupils present EOM: EOMs intact bilaterally and No Nystagmus present Neck Neck: Yes normal visual inspection, Yes full ROM and Yes no lymphadenopathy Chest Chest palpation & inspection: normal inspection of the chest Resp Effort & Inspection: normal respiratory effort Auscultation: clear to auscultation bilaterally, no crackles, no rales, no rhonchi, no wheezes and breath sounds present Cardio Rate: regular rate Rhythm: regular rhythm Peripheral pulses: radial pulses present and dorsalis pedis present GI Inspection: Yes normal to inspection and No Abdominal wall edema Palpation (GI): Soft to palpation, not firm and nontender Auscultation: normal bowel sounds Rectal Exam - Male: Yes deferred General: Yes no CVA tenderness Back/Spine/Pelvis Back: no CVA tenderness Skin Other: Fungal rash of the scalp Neuro Other: Significant Weakness of the left arm and mild weakness of the left leg compared to the right side. Intact sensation and pulses in bilateral upper and lower extremities General: patient oriented x3 Cranial nerves: Yes Equal, round and reactive pupils present, Yes Midline tongue present, Yes Ability to bilaterally elevate shoulders present and No Nystagmus present Gait exam (Neuro): Normal gait present Extrem General: Yes normal to inspection, Yes full ROM, No no pedal edema and No edema Psych Speech and movement: Normal speech and movement present Affect: normal affect Insight: Good insight present (Psych) Judgement: Good judgement present (Psych) Coding Level of Care Code New Pt Level 4 (98774) Diagnoses Alcohol use disorder F10.90 CVA (cerebral vascular accident) I63.9 Hypertension I10 Hypercholesterolemia E78.00 Rash R21 Dry skin dermatitis L85.3 Urinary incontinence R32 Left hemiparesis G81.94 Depression F32.A Additional Codes OCTAVIO-7 Assessment Billing - OCTAVIO-7 Assessment Tool: OCTAVIO-7 Assessment 56305 ([id number]) PHQ-9 - 98260 - PHQ-9 Billing: Yes ([id number]) Assessment & Plan Assessment & Plan (1) Alcohol use disorder: Code(s): F10.90 - Alcohol use, unspecified, uncomplicated Category: Medical Plan: Continue with naltrexone 25 mg. I did offer referral to comprehensive [facility] which was declined today. Patient's alcohol consumption has significantly decreased since his hospital visit in September (2) CVA (cerebral vascular accident): Comment: 09/2024 left sided hemiparesis Acute cerebral infarcts and anterior right parasagittal frontal lobe and right parasagittal frontoparietal junction. Chronic lacunar infarcts in the anterior lateral right frontal deep white matter. Code(s): I63.9 - Cerebral infarction, unspecified Category: Medical Plan: Patient having a CVA 09/2024 resulting in left-sided hemiparesis and worsening incontinence. He presents today with his MENTAL HEALTH UNIT LEAD PSYCHOLOGIST in the a requesting VNA services for occupational therapy and physical therapy as he is receiving the services while in the fdc facility and benefitted from the services. Referral was placed today. I did also place a referral for Neurology. Patient has been without his medications including aspirin, clopidogrel and atorvastatin for several months which were refilled today. At this time there is no new neurological deficit. (3) Hypertension: Code(s): I10 - Essential (primary) hypertension Category: Medical Plan: Plan to restart on lisinopril 2.5 mg as he has been out of this medication for many months. Avoid salt intake and encourage healthy diet and regular exercise. (4) Hypercholesterolemia: Code(s): E78.00 - Pure hypercholesterolemia, unspecified Category: Medical Plan: Avoid foods that are high in cholesterol such as red meat, fried foods, eggs and baked goods. Triglyceride goal of less than 150 and LDL goal of less than 70. Restarted on atorvastatin 80 mg and ordered for updated blood work __ (5) Rash: Code(s): R21 - Rash and other nonspecific skin eruption Category: Medical Plan: Patient has a fungal rash on the back of the scalp. I did recommend ketoconazole shampoo to be used twice weekly. His caregiver is also requesting a cream as he tends to declined showers. Clotrimazole cream was also sent to pharmacy. (6) Dry skin dermatitis: Code(s): L85.3 - Xerosis cutis Category: Medical Plan: Patient has dry skin dermatitis in his requesting a topical emollients. Amlactin was sent to pharmacy (7) Urinary incontinence: Comment: s/p CVA Code(s): R32 - Unspecified urinary incontinence Category: Medical Plan: Patient has a history of the urinary incontinence as a result of his recent CVA. Prescription was sent for adult pull-ups and wipes. Plan to follow up with Neurology and consider urology referral. (8) Left hemiparesis: Code(s): G81.94 - Hemiplegia, unspecified affecting left nondominant side Category: Medical Plan: Patient has left-sided hemiparesis as a result of his CVA 09/2024. He is requesting VNA services for in-home PT/OT and orders were placed today. He does have very limited function of the left arm but does have decent strength in the left lower extremity. (9) Depression: Code(s): F32.A - Depression, unspecified Category: Medical Plan: Referral was placed to counseling today. Patient declining medication management at this time. Plan The patient will be referred to a counselor to address depression and anxiety, as agreed upon during the visit. Medications for cholesterol, blood pressure, and post-stroke management have been prescribed and sent to the pharmacy. Blood work is ordered to monitor kidney, liver, electrolytes, thyroid, cholesterol, vitamins, and diabetes, with instructions to complete it within two months. Follow-up appointments are planned in a couple of months to review blood work results and overall health status. This note was constructed using voice recognition software. While every effort has been made to ensure accuracy and field service poultry technician, still areas may have been included sometimes these areas may affect the content or meeting of the given symptoms. Total time spent caring for the patient today was 30 minutes. This includes time spent before the visit reviewing the chart, time spent during the visit, and time spent after the visit and documentation. Patient was informed and verbally consented to the use of an ambient scribe for clinic note documentation during this visit. Orders: Orders Lipid Panel Today E78.00 - Pure hypercholesterolemia, unspecified Comprehensive Met. Panel Today I63.9 - Cerebral infarction, unspecified, Z00.00 - Encounter for general adult medical examination without abnormal findings Complete Blood Count Auto Diff Today I63.9 - Cerebral infarction, unspecified, Z00.00 - Encounter for general adult medical examination without abnormal findings Vitamin D 25-OH Total Today I10 - Essential (primary) hypertension, Z00.00 - Encounter for general adult medical examination without abnormal findings Free T4 (Free Thyroxine) Today I10 - Essential (primary) hypertension, Z13.29 - Encounter for screening for other suspected endocrine disorder Vitamin B12 and Folate Today I10 - Essential (primary) hypertension, Z13.21 - Encounter for screening for nutritional disorder TSH reflex Free T4 Today I10 - Essential (primary) hypertension, Z13.29 - Encounter for screening for other suspected endocrine disorder Hemoglobin A1c Today Z13.1 - Encounter for screening for diabetes mellitus Referrals Counseling Referral F32.A - Depression, unspecified Neurology Referral I63.9 - Cerebral infarction, unspecified [facility] Referral G81.94 - Hemiplegia, unspecified affecting left nondominant side, I63.9 - Cerebral infarction, unspecified Medications: New clotrimazole 1% 1 appl topical BID 15 grams 0RF ammonium lactate 12% (AmLactin) 1 appl topical DAILY 400 grams 1RF ketoconazole 2% 1 appl topical 2XW 120 mL 0RF [Adult pull ups] As directed; up to 6x per day 180 ea 1RF R32 - Unspecified urinary incontinence [Wipes] As directed 100 ea 0RF R32 - Unspecified urinary incontinence Refilled atorvastatin 80 mg PO BEDTIME 90 tabs 0RF clopidogrel 75 mg PO DAILY 90 tabs 0RF naltrexone 25 mg (1/2 x 50 mg) PO DAILY 30 tabs 0RF aspirin 81 mg PO DAILY 90 tabs 0RF lisinopril 2.5 mg See Protocol PO DAILY 90 tabs 0RF
--- OUTSIDE RECORDS SUMMARY | 2025-06-28 13:48 | XMS_ITS | Clinical Summary ---
Author Organization [facility] [facility] [employer] Address [address] [place] [address] Care Team Providers Care Dental Laboratory Technician Name Role Phone Unavailable Primary Care Provider Unavailabl e Allergies No known active allergies Medications No known medications Active Problems No known active problems Social History Tobacco Use Types Packs/Day Years Used Date Smoking Tobacco: Every Day Cigarettes Smokeless Tobacco: Never Tobacco Cessation:Ready to Q uit: Not Asked; Counseling Given: Not Answered Alcohol Use Standard Drinks/Week Comments Not Currently 0 (1 standard drink = 0.6 oz pur e alcohol) Sex and Gender Information Value Date Recorded Sex Assigned at Male 05/10/2024 12:01 PM EDT Legal Sex Male 10:00 AM EST Gender Identity Male 05/10/2024 12:01 PM EDT Sexual Orientation Straight 05/11/2024 1: 07 PM EDT Last Filed Vital Signs Vital Sign Reading Time Taken Comments Blood Pressure 112/64 06/16/2024 1:40 PM EDT Pulse - - Temperature - - Respiratory Rate - - Oxygen Saturation - - Inhaled Oxygen Concentration - - Weight - - Height - - Body Mass Index - - Plan of Treatment Health Maintenance Due Date Last Done Comments CT Colonography 1952 Colonoscopy 1952 Colorectal Cancer Screening 1952 Dental Prophylaxis 1952 Depression Screening 1952 FIT DNA/Cologuard 1952 FIT 1952 FOBT 1952 Lipid Panel 1952 SDOH Screening 1952 Sigmoidoscopy 1952 Alcohol/Substance Use Screening 1964 Hepatitis C Screening 1970 DTaP/Tdap/Td Vaccines (1 - Tdap) 1971 Pneumococcal Vaccine: 50+ Ye ars (1 of 2 - PCV) 1971 Zoster Vaccines (1 of 2) 2002 RSV Patients and Pa tients Aged 60 years or older (1 - Risk 60-74 years 1-dose series) 2012 COVID-19 Vaccine (2 - 2023-2 5 season) 2024 01/10/2022 Dental Oral Exam 12/18/2024 06/16/2024 Tobacco Screening 06/16/2025 06/16/2024 Dental X-Ray: Bitewings 06/17/2025 06/16/2024 Influenza Vaccine (#1) 2025 Dental X-Ray: Full Mouth 06/17/2027 06/16/2024 HIB Vaccines Aged Out No longer eligi ble based on patient's age to complete this topic HPV Vaccines Aged Out No longer eligi ble based on patient's age to complete this topic Hepatitis A Vaccines Aged Out No long er eligible based on patient's age to complete this topic Hepatitis B Vaccines Aged Out No long er eligible based on patient's age to complete this topic IPV Vaccines Aged Out No longer eligi ble based on patient's age to complete this topic Meningococcal B Vaccine Aged Out No l onger eligible based on patient's age to complete this topic Meningococcal Vaccine Aged Out No john bela eligible based on patient's age to complete this topic RSV under 20 months Aged Out No longe r eligible based on patient's age to complete this topic Rotavirus Vaccines Aged Out No longer eligible based on patient's age to complete this topic Procedures Procedure Name Priority Date/Time Associated Diagnosis Comments INTRAORAL - COMPLETE SERIES OF RADIOGRAPHIC IMAGES Routine 06/16/2024 1:30 PM EDT COMPREHENSIVE ORAL EVALUATION - NEW OR ESTABLISHED PATIENT Routine 06/16/2024 1:30 PM EDT from Last 3 Months or Most Recently Relevant to Health Maintenance Insurance MEDICARE [facility] STANDARD DENTAL - HSN FULL (MEDICAID)
--- OUTSIDE RECORDS SUMMARY | 2025-06-28 13:48 | XMS_ITS | Encounter Summary ---
Author Organization [facility] Address [address] [place] [address] Care Team Providers Care Atm Manager Name Role Phone Waldo Soler MD Primary Care Provider [phone] Encounter Details Date Type Department Care Team (Late st Contact Info) Description 12/20/2024 Lab Requisition [facility] - Main Lab [address] [facility] [place] [address] Waldo Soler MD [address] [facility] [address] [place], [address] Hemiplegia and hemiparesis 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 (CMS/HCC V24, CMS/HCC V28) Social History Tobacco Use Types Packs/Day Years Used Date Smoking Tobacco: Never Assessed Sex and Gender Information Value Date Recorded Sex Assigned at Not on file Legal Sex Male 7:25 AM EST Gender Identity Not on file Sexual Orientation Not on file documented as of this encounter Plan of Treatment Not on file documented as of this encounter Visit Diagnoses Diagnosis Hemiplegia and hemiparesis following cerebral infarction affecting left non- dominant side (CMS/HCC V24, CMS/HCC V28) documented in this encounter Care Teams Atm Manager Relationship Specialty Start Date End Date Waldo Soler MD [address] [facility] [address] [place], [address] PCP - General Family Medicine 10/17/24 documented as of this encounter
== END 2025-06-28 14:22 | disposition home or self-care (01) ==
LOC: HO.HMCH 13:17
DX: I63.9 Cerebral infarction, unspecified (principal); G81.94 Hemiplegia, unspecified affecting left nondominant side; F10.90 Alcohol use, unspecified, uncomplicated; I10 Essential (primary) hypertension; E78.00 Pure hypercholesterolemia, unspecified; R21 Rash and other nonspecific skin eruption; L85.3 Xerosis cutis; R32 Unspecified urinary incontinence; F32.A Depression, unspecified

== ENCOUNTER → 2025-06-28 13:16 | Outpatient (BNVA) | payer MEDICARE, MEDICAID, SELFPAY | DX: F10.90 Alcohol use, unspecified, uncomplicated (principal); I63.9 Cerebral infarction, unspecified; I10 Essential (primary) hypertension; E78.00 Pure hypercholesterolemia, unspecified; R32 Unspecified urinary incontinence; F32.A Depression, unspecified; G81.94 Hemiplegia, unspecified affecting left nondominant side; L85.3 Xerosis cutis | CPT/HCPCS: 96127; 99202 ==

== ENCOUNTER 2025-08-30 13:47 | Outpatient (AMB) | payer MEDICARE, MEDICAID, SELFPAY ==
--- NOTE | 2025-08-30 13:53 | A.OFFPC_ITS ---
Vital Signs 08/30/25 13:54 Height 5 ft 5 in Weight 134 lb 0.657 oz BMI 22.3 BP 130/60 Blood Pressure Location Rt brachial Position Sitting Pulse 89 Pulse Source Pulse Oximeter Temp 97.1 F Temp Source Temporal Artery Scan Pulse Oximetry (%) 100 Oxygen Delivery Method Room Air Intake Visit Reasons: 2M follow up CVA Intake Note: Patient is here to follow up on CVA. Manufacturing Coordinator Required: No Content Engineer: Present Accompanied by: Son Allergies No Known Allergies Allergy (Verified 08/30/25 14:06) Medication List - Last Reconciled 08/30/25 by Yamel Cabrera PA-C [Adult pull ups As directed; up to 6x per day] ammonium lactate 12% (AmLactin) 1 appl topical DAILY aspirin 81 mg PO DAILY atorvastatin 80 mg PO BEDTIME clopidogrel 75 mg PO DAILY clotrimazole 1% 1 appl topical BID ketoconazole 2% 1 appl topical 2XW lisinopril 2.5 mg See Protocol PO DAILY naltrexone 25 mg (1/2 x 50 mg) PO DAILY [Wipes As directed] Tobacco use date assessed: 08/30/25 Fall risk assessment: No Falls in past year Last assessed Fall Risk: 08/30/25 Dental Screening Dental Screen Date: 06/28/25 HPI 2M follow up CVA HPI Details 74 year old male with past medical histo ry of alcohol use disorder, CVA, hypertension, hypercholesterolemia, depression last seen 06/2025 coming in for follow up. He is seeing neurology later today. Patient Presents today with his son Klaus who provides translation for the duration of this appointment. Declines formal interpretation. Patient tells us today he is no longer drinking alcohol and does not crave alcohol. Because of this he has stopped the naltrexone has been doing well these in his medication. He has previously living with the [facility] however he lives independently at this time. He has difficulty completing his activities of daily living in his unable to perform personal hygiene. His son lives out of state is unable to care to his needs the extent that he requires. He has no a cute concerns today and is overall feeling generally well. [facility] Medical History Acute cerebral infarction Surgical History History of ear surgery History of heart artery stent History of appendectomy Social History Household Members: None Housing: Apartment Do you presently have visiting nurse or other home services: Yes (Has partner who helps provide care for and to him) Alcohol intake: current Alcohol intake frequency: a few times a week Alcohol type: beer Patient Tobacco Use Status: Former Tobacco user Tobacco use type: Cigarette Cigarette Packs Per Day: 0.5 Cigarettes Per Day: 5 e-Cigarette/Vaping Use: Never Used Second Hand Smoke Exposure: Yes service: No Current occupational status: retired Cognitive needs: Yes (Wheelchair) Hearing needs: No Vision needs: No Questionnaire Thrive Questionnaire Date Thrive assessed: 10/11/24 I am a: Parent/Caregiver What is your living situation today?: I do not have a steady places to live I am temporarily staying with others Within the past 12 months, did the food you bought not last and you didn't have the money to get more?: Sometimes True Within the past 12 months, did you worry whether your food would run out before you got money to buy more?: Sometimes True Do you have trouble paying for medicines?: Yes Do you have trouble getting transportation to medical appointments?: Yes Do you have trouble paying your heating and electricity bill?: Yes Do you have trouble taking care of your child, family member or friend?: I choose not to answer this question Do you have trouble with day-to-day activities such as bathing, preparing meals, shopping, managing finances, etc.?: Yes Are you currently unemployed and looking for a job?: No Are you interested in more education?: No Currently or been in a relationship where the following occur: No concerns reported THRIVE Score: 5 OCTAVIO-7 AMB Questionnaire OCTAVIO-7 Date OCTAVIO - 7 assessed: 06/28/25 Source: Developed by Drs. Thor Estes, Stefani Jay, Mina Medrano and colleagues, with an educational zeb from [email or web address]. Review of Systems Const Denies body aches, Denies chills and Denies fever(s) Eyes Reports no additional complaints ENT Denies dysphagia and Denies odynophagia Card Denies chest pain, Denies syncope, Denies edema, Denies irregular heart rhythm, Denies lightheadedness and Denies dyspnea Resp Denies dyspnea GI Denies dysphagia and Denies odynophagia Musc Reports no additional complaints Neuro Denies syncope Physical exam (Primary Care) Vital Signs: Last Vital Signs Temp 97.1 F 08/30/25 13:54 Pulse 89 08/30/25 13:54 BP 130/60 08/30/25 13:54 Pulse Ox 100 08/30/25 13:54 Oxygen Delivery Method Room Air 08/30/25 13:54 BMI result Body Mass Index 22.3 Tobacco/Smoking Status: Tobacco use Status Tobacco use date assessed 08/30/25 08/30/25 14:05 Patient Tobacco Use Status Former Tobacco user 08/30/25 14:05 Tobacco use type Cigarette 08/30/25 14:05 e-Cigarette/Vaping Use Never Used 08/30/25 14:05 Thrive Assessment: Date of Thrive Assessment Date Thrive assessed 10/11/24 08/30/25 14:05 Currently or been in a relationship where the following occur: No concerns reported Const General: cooperative, healthy appearing, comfortable and no acute distress Orientation/consciousness: patient oriented x3 HENMT Head: Yes normocephalic Ears: hearing grossly normal bilaterally General nose exam: Normal external nose present Eyes General: appearance normal, both eyes and all related structures Conjunctivae: conjunctivae normal Neck Neck: Yes full ROM and Yes no lymphadenopathy Resp Effort & Inspection: normal respiratory effort Auscultation: clear to auscultation bilaterally, no crackles, no rales, no rhonchi and no wheezes Cardio Rate: regular rate Rhythm: regular rhythm Skin General skin exam: no rashes or lesions noted Neuro Other: left sided UE and LE weakness General: patient oriented x3 Gait exam (Neuro): Normal gait present Extrem Other: pulses intact in feroz LE and no discoloration feroz General: Yes normal to inspection, Yes full ROM and No edema Psych Affect: normal affect Attitude: cooperative Insight: Good insight present (Psych) Judgement: Good judgement present (Psych) Coding Level of Care Code Est Pt Level 4 (28471) Diagnoses Alcohol use disorder F10.90 CVA (cerebral vascular accident) I63.9 Hypertension I10 Hypercholesterolemia E78.00 Urinary incontinence R32 Left hemiparesis G81.94 Depression F32.A Cold hands and feet R20.9 Assessment & Plan Assessment & Plan (1) Alcohol use disorder: Code(s): F10.90 - Alcohol use, unspecified, uncomplicated Category: Medical Plan: No longer using naltrexone and denies any cravings. Has not had alcohol in several weeks. (2) CVA (cerebral vascular accident): Comment: 09/2024 left sided hemiparesis Acute cerebral infarcts and anterior right parasagittal frontal lobe and right parasagittal frontoparietal junction. Chronic lacunar infarcts in the anterior lateral right frontal deep white matter. Code(s): I63.9 - Cerebral infarction, unspecified Category: Medical Plan: Patient having a CVA 09/2024 resulting in left-sided hemiparesis and worsening incontinence. He presents today with his son who reports he did not have VNA services this is previous DOWEL SETTING MACHINE OPERATOR did not have this set up. I did send a message regarding VNA services for occupational and physical therapy as I do feel it is still appropriate. He has been consistent with his medications and has an appointment today with the neurologist. He has significant needs including but not limited to; assistance with bathing, assistance with transfers, assistance with meal preparation and laundry, grocery shopping. At this time he is approved for 24 hours weekly with [facility] of services and I do believe he would benefit from additional hours. I also discussed with the son potentially a higher level of care including a [place] [facility] facility or assisted living. This is declined by both the patient and the son and they would like to pursue DOWEL SETTING MACHINE OPERATOR options. I did also discuss my concern regarding fall risk and aspiration however they continue to decline additional services. (3) Hypertension: Code(s): I10 - Essential (primary) hypertension Category: Medical Plan: Continue on current blood pressure medication. Avoid salt intake and encourage healthy diet and regular exercise. (4) Hypercholesterolemia: Code(s): E78.00 - Pure hypercholesterolemia, unspecified Category: Medical Plan: Avoid foods that are high in cholesterol such as red meat, fried foods, eggs and baked goods. Triglyceride goal of less than 150 and LDL goal of less than 70. Reminded about blood work (5) Urinary incontinence: Comment: s/p CVA Code(s): R32 - Unspecified urinary incontinence Category: Medical Plan: Patient has a history of the urinary incontinence as a result of his recent CVA. Prescription was sent for adult pull-ups and wipes. Plan to follow up with Neurology and consider urology referral. (6) Left hemiparesis: Code(s): G81.94 - Hemiplegia, unspecified affecting left nondominant side Category: Medical Plan: Patient has left-sided hemiparesis as a result of his CVA 09/2024. He is requesting VNA services for in-home PT/OT and orders were placed at last visit. He does have very limited function of the left arm but does have decent strength in the left lower extremity. (7) Depression: Comment: [facility] for counselor Ирина Hurd Code(s): F32.A - Depression, unspecified Category: Medical Plan: Seeing counselor through [facility] and finds this beneficial. (8) Cold hands and feet: Code(s): R20.9 - Unspecified disturbances of skin sensation Category: Medical Plan: Patient's son does report he will occasionally have cold feet and discoloration primarily in the morning. He does have good pulses on exam bilaterally this is likely result of poor circulation. Recommended compression stockings which patient declined. Patient does need to walk to improve circulation and I encouraged him to do so in a monitored environment due to gait instability. Offered vascular surgery referral which was declined Plan This note was constructed using voice recognition software. While every effort has been made to ensure accuracy and forest ranger technician, still areas may have been included sometimes these areas may affect the content or meeting of the given symptoms. Total time spent caring for the patient today was 30 minutes. This includes time spent before the visit reviewing the chart, time spent during the visit, and time spent after the visit and documentation. Medications: Refilled ammonium lactate 12% (AmLactin) 1 appl topical DAILY 400 grams 1RF atorvastatin 80 mg PO BEDTIME 90 tabs 0RF clopidogrel 75 mg PO DAILY 90 tabs 0RF ketoconazole 2% 1 appl topical 2XW 120 mL 0RF aspirin 81 mg PO DAILY 90 tabs 0RF clotrimazole 1% 1 appl topical BID 15 grams 0RF R21 - Rash and other non specific skin eruption Discontinued naltrexone Discontinued Reason: Patient no longer taking 25 mg (1/2 x 50 mg) PO DAILY 30 tabs 0RF
[2025-08-30 13:54] VITALS: BP 130/60; PULSE 89; TEMP 36.2; O2SAT 100; BMI 22.3
--- OUTSIDE RECORDS SUMMARY | 2025-08-30 15:02 | XMS_ITS | Clinical Summary ---
Author Organization [employer] Address [address] [place] [address] Care Team Providers Care Ladle Car Operator Name Role Phone Unavailable Primary Care Provider [...] - Risk 60-74 years 1-dose series) 2012 Dental Oral Exam 12/18/2024 06/16/2024 Tobacco Screening 06/16/2025 06/16/2024 Dental X-Ray: Bitewings 06/17/2025 06/16/2024 COVID-19 Vaccine (2 - 2024-2 6 season) 2025 01/10/2022 Influenza Vaccine (#1) 2025 Dental X-Ray: Full [...] Recently Relevant to Health Maintenance Insurance MEDICARE [facility] STANDARD DENTAL - HSN FULL (MEDICAID)
--- OUTSIDE RECORDS SUMMARY | 2025-08-30 15:02 | XMS_ITS | Encounter Summary ---
Author Organization [facility] Address [address] [place] [address] Care Team Providers Care Associate Faculty Name Role Phone Waldo Soler MD Primary Care Provider [phone] Encounter Details Date Type Department Care Team (Late st Contact Info) Description 11/26/2024 Lab Requisition [facility] - Main Lab [address] [place] [address] Waldo Soler MD [address] [place] [address] [address] [place], [phone] Hemiplegia and hemiparesis following cerebral infarction [...] on file documented as of this encounter Procedures Procedure Name Priority Date/Time Associated Diagnosis Comments COMPLETE BLOOD COUNT Routine 11/28/2024 5:36 AM EST Hemiplegia and hemiparesis 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 (CMS/HCC) COMPREHENSIVE METABOLIC PANEL Routine 11/28/2024 5:36 AM EST Hemiplegia and hemiparesis 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 (CMS/HCC) documented in this encounter Results * Comprehensive metabolic panel (11/28/2024 5:36 AM EST) Sodium 139 133 - 145 mmol/L LAB CHEMISTRY METHOD 11/28/2024 9:54 AM [facility] Potassium 4.9 3.5 - 5.5 mmol/L LAB CHEMISTRY METHOD 11/28/2024 9:54 AM [facility] Chloride 105 96 - 110 mmol/L LAB CHEMISTRY METHOD 11/28/2024 9:54 AM [facility] CO2 31 21 - 32 mmol/L LAB CHEMISTRY METHOD 11/28/2024 9:54 AM [facility] Anion Gap 3 3 - 11 LAB CHEMISTRY METHOD 11/28/2024 9:54 AM [facility] Glucose 76 70 - 100 mg/dL LAB CHEMISTRY METHOD 11/28/2024 9:54 AM [facility] BUN 12 5 - 25 mg/dL LAB CHEMISTRY METHOD 11/28/2024 9:54 AM [facility] Creatinine 0.96 0.70 - 1.30 mg/dL LAB CHEMISTRY METHOD 11/28/2024 9:54 AM [facility] eGFR 84 >=60 mL/min/1. 73m2 LAB CHEMISTRY METHOD 11/28/2024 9:54 AM [facility] Comment:Calculation based on the Chronic Kidney Disease Epidemiology Collaboration (CKD-EPI) equation refit without adjustment for race. BUN/Creatinine Ratio 12.5 LAB CHEMISTRY METHOD 11/28/2024 9:54 AM [facility] Calcium 9.2 8.5 - 10.5 mg/dL LAB CHEMISTRY METHOD 11/28/2024 9:54 AM [facility] AST (SGOT) 27 10 - 42 unit/L LAB CHEMISTRY METHOD 11/28/2024 9:54 AM [facility] ALT (SGPT) 39 10 - 60 unit/L LAB CHEMISTRY METHOD 11/28/2024 9:54 AM [facility] Alkaline Phosphatase 74 42 - 121 unit/L LAB CHEMISTRY METHOD 11/28/2024 9:54 AM [facility] Total Protein 6.5 6.0 - 8.0 g/dL LAB CHEMISTRY METHOD 11/28/2024 9:54 AM EST [facility] Albumin 3.2 3.2 - 5.0 g/dL LAB CHEMISTRY METHOD 11/28/2024 9:54 AM [facility] Total Bilirubin 0.6 0.0 - 1.4 mg/dL LAB CHEMISTRY METHOD 11/28/2024 9:54 AM EST [facility] Blood Venous blood specimen / Unknown Venipuncture / Unknown 11/28/2024 5:36 AM EST 11/28/2024 8:31 AM EST us Waldo Soler MD LAB BLOOD ORDERABLES Final Resul t [facility] [address] [place] [address], * (ABNORMAL) Complete blood count (11/28/2024 5:36 AM EST) WBC 5.7 4.8 - 10.8 K/mcL LAB HEMETOLOGY METHOD 11/28/2024 9:19 AM [facility] RBC 4.40(L) 4.50 - 5.50 M/mcL LAB HEMETOLOGY METHOD 11/28/2024 9:19 AM [facility] Hemoglobin 13.4(L) 13.5 - 17.5 g/dL LAB HEMETOLOGY METHOD 11/28/2024 9:19 AM [facility] Hematocrit 41.8(L) 42.0 - 54.0 % LAB HEMETOLOGY METHOD 11/28/2024 9:19 AM [facility] MCV 94.4 79.0 - 98.0 FL LAB HEMETOLOGY METHOD 11/28/2024 9:19 AM [facility] MCH 30.2 27.0 - 32.0 pcg LAB HEMETOLOGY METHOD 11/28/2024 9:19 AM EST [facility] MCHC 32.1 32.0 - 37.0 g/dL LAB HEMETOLOGY METHOD 11/28/2024 9:19 AM EST [facility] RDW 12.5 11.0 - 15.0 % LAB HEMETOLOGY METHOD 11/28/2024 9:19 AM [facility] Platelets 242 130 - 400 K/mcL LAB HEMETOLOGY METHOD 11/28/2024 9:19 AM EST [facility] MPV 10.1 7.0 - 11.0 FL LAB HEMETOLOGY METHOD 11/28/2024 9:19 AM EST [facility] NRBC 0.0 <1.0 % LAB HEMETOLOGY METHOD 11/28/2024 9:19 AM [facility] NRBC Absolute 0.00 <0.10 K/mcL LAB HEMETOLOGY METHOD 11/28/2024 9:19 AM [facility] Blood Venous blood specimen / Unknown Venipuncture / Unknown 11/28/2024 5:36 AM EST 11/28/2024 8:31 AM EST us Waldo Soler MD LAB BLOOD ORDERABLES Final Resul t [facility] [address] [place] [address], documented in this encounter Visit Diagnoses Diagnosis Hemiplegia and hemiparesis following cerebral infarction affecting left non- dominant side (CMS/HCC V24, CMS/HCC V28) documented in this encounter Care Teams Associate Faculty Relationship Specialty Start Date End Date Waldo Soler MD [address] [place] [address], [phone] PCP - General Family Medicine 10/17/24 documented as of this encounter
--- OUTSIDE RECORDS SUMMARY | 2025-08-30 15:02 | XMS_ITS | Encounter Summary ---
Author Organization [facility] Address [address] [place] [address] Care Team Providers Care Retail Supervisor Name Role Phone Waldo Soler MD Primary Care Provider [phone] Encounter Details Date Type Department Care Team (Late st Contact Info) Description 12/20/2024 Lab Requisition [facility] - Main Lab [address] [facility] [place] [address] Waldo Soler MD [address] [facility] [address] [place], [phone] Hemiplegia and hemiparesis following cerebral infarction [...] V28) documented in this encounter Care Teams Retail Supervisor Relationship Specialty Start Date End Date Waldo Soler MD [address] [facility] [address] [place], [phone] PCP - General Family Medicine 10/17/24 documented as of this encounter
--- OUTSIDE RECORDS SUMMARY | 2025-08-30 15:03 | XMS_ITS | Encounter Summary ---
Author Organization [facility] Address [address] [place] [address] Care Team Providers Care Customer Success Advocate Name Role Phone Waldo Soler MD Primary Care Provider [phone] Encounter Details Date Type Department Care Team (Late st Contact Info) Description 10/21/2024 Lab Requisition [facility] - Main Lab [address] [facility] [place] [place] [address] Waldo Soler MD [address] [place] [address] [address] [place], [phone] Hemiplegia and hemiparesis following cerebral infarction [...] Associated Diagnosis Comments COMPLETE BLOOD COUNT Routine 10/24/2024 6:44 AM EST Hemiplegia and hemiparesis 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 (CMS/HCC) COMPREHENSIVE METABOLIC PANEL Routine 10/24/2024 6:44 AM EST Hemiplegia and hemiparesis 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 (CMS/HCC) documented in this encounter Results * (ABNORMAL) Comprehensive metabolic panel (10/24/2024 6:44 AM EST) Sodium 138 133 - 145 mmol/L LAB CHEMISTRY METHOD 10/24/2024 11:26 AM [facility] Potassium 4.5 3.5 - 5.5 mmol/L LAB CHEMISTRY METHOD 10/24/2024 11:26 AM [facility] Chloride 101 96 - 110 mmol/L LAB CHEMISTRY METHOD 10/24/2024 11:26 AM [facility] CO2 31 21 - 32 mmol/L LAB CHEMISTRY METHOD 10/24/2024 11:26 AM [facility] Anion Gap 6 3 - 11 LAB CHEMISTRY METHOD 10/24/2024 11:26 AM [facility] Glucose 65(L) 70 - 100 mg/dL LAB CHEMISTRY METHOD 10/24/2024 11:26 AM [facility] BUN 21 5 - 25 mg/dL LAB CHEMISTRY METHOD 10/24/2024 11:26 AM [facility] Creatinine 1.18 0.70 - 1.30 mg/dL LAB CHEMISTRY METHOD 10/24/2024 11:26 AM [facility] eGFR 66 >=60 mL/min/1. 73m2 LAB CHEMISTRY METHOD 10/24/2024 11:26 AM [facility] Comment:Calculation based on the Chronic Kidney Disease Epidemiology Collaboration (CKD-EPI) equation refit without adjustment for race. BUN/Creatinine Ratio 17.8 LAB CHEMISTRY METHOD 10/24/2024 11:26 AM [facility] Calcium 9.3 8.5 - 10.5 mg/dL LAB CHEMISTRY METHOD 10/24/2024 11:26 AM [facility] AST (SGOT) 29 10 - 42 unit/L LAB CHEMISTRY METHOD 10/24/2024 11:26 AM [facility] ALT (SGPT) 33 10 - 60 unit/L LAB CHEMISTRY METHOD 10/24/2024 11:26 AM [facility] Alkaline Phosphatase 93 42 - 121 unit/L LAB CHEMISTRY METHOD 10/24/2024 11:26 AM [facility] Total Protein 7.0 6.0 - 8.0 g/dL LAB CHEMISTRY METHOD 10/24/2024 11:26 AM EST [facility] Albumin 3.6 3.2 - 5.0 g/dL LAB CHEMISTRY METHOD 10/24/2024 11:26 AM [facility] Total Bilirubin 0.6 0.0 - 1.4 mg/dL LAB CHEMISTRY METHOD 10/24/2024 11:26 AM [facility] Blood Venous blood specimen / Unknown Venipuncture / Unknown 10/24/2024 6:44 AM EST 10/24/2024 10:09 AM EST us Waldo Soler MD LAB BLOOD ORDERABLES Final Resul t [facility] [address] [place] [address], * Complete blood count (10/24/2024 6:44 AM EST) WBC 7.3 4.8 - 10.8 K/mcL LAB HEMETOLOGY METHOD 10/24/2024 10:40 AM [facility] RBC 4.90 4.50 - 5.50 M/mcL LAB HEMETOLOGY METHOD 10/24/2024 10:40 AM [facility] Hemoglobin 14.9 13.5 - 17.5 g/dL LAB HEMETOLOGY METHOD 10/24/2024 10:40 AM [facility] Hematocrit 45.8 42.0 - 54.0 % LAB HEMETOLOGY METHOD 10/24/2024 10:40 AM [facility] MCV 92.9 79.0 - 98.0 FL LAB HEMETOLOGY METHOD 10/24/2024 10:40 AM [facility] MCH 30.2 27.0 - 32.0 pcg LAB HEMETOLOGY METHOD 10/24/2024 10:40 AM EST [facility] MCHC 32.5 32.0 - 37.0 g/dL LAB HEMETOLOGY METHOD 10/24/2024 10:40 AM EST [facility] RDW 12.3 11.0 - 15.0 % LAB HEMETOLOGY METHOD 10/24/2024 10:40 AM [facility] Platelets 303 130 - 400 K/mcL LAB HEMETOLOGY METHOD 10/24/2024 10:40 AM [facility] MPV 10.1 7.0 - 11.0 FL LAB HEMETOLOGY METHOD 10/24/2024 10:40 AM [facility] NRBC 0.0 <1.0 % LAB HEMETOLOGY METHOD 10/24/2024 10:40 AM [facility] NRBC Absolute 0.00 <0.10 K/mcL LAB HEMETOLOGY METHOD 10/24/2024 10:40 AM [facility] Blood Venous blood specimen / Unknown Venipuncture / Unknown 10/24/2024 6:44 AM EST 10/24/2024 10:13 AM EST us Waldo Soler MD LAB BLOOD ORDERABLES Final Resul t [facility] [address] [place] [address], documented in this encounter Visit Diagnoses Diagnosis Hemiplegia and hemiparesis following cerebral infarction affecting left non- dominant side (CMS/HCC V24, CMS/HCC V28) documented in this encounter Care Teams Customer Success Advocate Relationship Specialty Start Date End Date Waldo Soler MD [address] [place] [address], [phone] PCP - General Family Medicine 10/17/24 documented as of this encounter
--- OUTSIDE RECORDS SUMMARY | 2025-08-30 15:03 | XMS_ITS | Clinical Summary ---
Author Organization [address] Address [address] [place] [address] Phone Care Team Providers Care Fleet Administrator Name Role Phone Waldo Soler MD Primary Care Provider [phone] Social History Tobacco Use Types Packs/Day Years Used Date Smoking Tobacco: Never Assessed Sex and Gender Information Value Date Recorded Sex Assigned at Not on file Legal Sex Male 7:25 AM EST Gender Identity Not on file Sexual Orientation Not on file Plan of Treatment Health Maintenance Due Date Last Done Comments DTaP,Tdap,and Td Vaccines (1 - Tdap) 1971 Pneumococcal Vaccine: 50+ Ye ars (1 of 1 - PCV) 2002 Zoster Vaccines (1 of 2) 2002 Abdominal Aortic Aneurysm (A AA) Screen 10/17/2024 Cholesterol Screening (Lipid Panel) 10/17/2024 Colorectal Cancer Screening: Colonoscopy 10/17/2024 Falls Risk Assessment 10/17/2024 Hepatitis C Screening 10/17/2024 Medicare Annual Wellness Visit 10/17/2024 Social Influencers of Health Screening 10/17/2024 Depression Screening 11/30/2024 COVID-19 Vaccine (1 - 2023-2 5 season) 2025 Influenza Vaccine (#1) 2025 RSV Immunization Adult Patie nts (1 - 1-dose 75+ series) 2027 HIB Vaccines Aged Out No longer eligi [...] on patient's age to complete this topic MMR Vaccines Aged Out No longer eligi ble based on patient's age to complete this topic Meningococcal ACWY Vaccine Aged Out N o longer eligible based on patient's age to complete this topic Meningococcal B Vaccine Aged Out No l onger eligible based on patient's age to complete this topic RSV Immunization Patients Un angela 20 months Aged Out No longer eligible b ased on patient's age to complete this topic Varicella Vaccines Aged Out No longer eligible based on patient's age to complete this topic Insurance MEDICAID - [place] MEDICARE Care Teams Fleet Administrator Relationship Specialty Start Date End Date Waldo Soler MD [address] [place] [address] [address] [place], [address] PCP - General Family Medicine 10/17/24
--- OUTSIDE RECORDS SUMMARY | 2025-08-30 15:03 | XMS_ITS | Encounter Summary ---
Author Organization [facility] Address [address] [place] [address] Care Team Providers Care Hearing Aid Assembly Supervisor Name Role Phone Waldo Soler MD Primary Care Provider [phone] Encounter Details Date Type Department Care Team (Late st Contact Info) Description 10/28/2024 Lab Requisition [facility] - Main Lab 299 [facility] [place] [address] Waldo Soler MD [address] [place] [address] [address] [place], [phone] Hemiplegia and hemiparesis following cerebral infarction [...] Associated Diagnosis Comments COMPLETE BLOOD COUNT Routine 10/31/2024 5:16 AM EST Hemiplegia and hemiparesis 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 (CMS/HCC) COMPREHENSIVE METABOLIC PANEL Routine 10/31/2024 5:16 AM EST Hemiplegia and hemiparesis 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 (CMS/HCC) documented in this encounter Results * (ABNORMAL) Comprehensive metabolic panel (10/31/2024 5:16 AM EST) Sodium 137 133 - 145 mmol/L LAB CHEMISTRY METHOD 10/31/2024 9:09 AM [facility] Potassium 4.6 3.5 - 5.5 mmol/L LAB CHEMISTRY METHOD 10/31/2024 9:09 AM [facility] Chloride 101 96 - 110 mmol/L LAB CHEMISTRY METHOD 10/31/2024 9:09 AM [facility] CO2 30 21 - 32 mmol/L LAB CHEMISTRY METHOD 10/31/2024 9:09 AM [facility] Anion Gap 6 3 - 11 LAB CHEMISTRY METHOD 10/31/2024 9:09 AM [facility] Glucose 68(L) 70 - 100 mg/dL LAB CHEMISTRY METHOD 10/31/2024 9:09 AM [facility] BUN 13 5 - 25 mg/dL LAB CHEMISTRY METHOD 10/31/2024 9:09 AM [facility] Creatinine 0.97 0.70 - 1.30 mg/dL LAB CHEMISTRY METHOD 10/31/2024 9:09 AM [facility] eGFR 83 >=60 mL/min/1. 73m2 LAB CHEMISTRY METHOD 10/31/2024 9:09 AM [facility] Comment:Calculation based on the Chronic Kidney Disease Epidemiology Collaboration (CKD-EPI) equation refit without adjustment for race. BUN/Creatinine Ratio 13.4 LAB CHEMISTRY METHOD 10/31/2024 9:09 AM [facility] Calcium 9.2 8.5 - 10.5 mg/dL LAB CHEMISTRY METHOD 10/31/2024 9:09 AM [facility] AST (SGOT) 39 10 - 42 unit/L LAB CHEMISTRY METHOD 10/31/2024 9:09 AM [facility] ALT (SGPT) 54 10 - 60 unit/L LAB CHEMISTRY METHOD 10/31/2024 9:09 AM [facility] Alkaline Phosphatase 86 42 - 121 unit/L LAB CHEMISTRY METHOD 10/31/2024 9:09 AM [facility] Total Protein 6.6 6.0 - 8.0 g/dL LAB CHEMISTRY METHOD 10/31/2024 9:09 AM [facility] Albumin 3.4 3.2 - 5.0 g/dL LAB CHEMISTRY METHOD 10/31/2024 9:09 AM [facility] Total Bilirubin 0.6 0.0 - 1.4 mg/dL LAB CHEMISTRY METHOD 10/31/2024 9:09 AM [facility] Blood Venous blood specimen / Unknown Venipuncture / Unknown 10/31/2024 5:16 AM EST 10/31/2024 8:13 AM EST us Waldo Soler MD LAB BLOOD ORDERABLES Final Resul t [facility] [address] [place] [address], * Complete blood count (10/31/2024 5:16 AM EST) WBC 7.1 4.8 - 10.8 K/mcL LAB HEMETOLOGY METHOD 10/31/2024 8:30 AM [facility] RBC 4.60 4.50 - 5.50 M/mcL LAB HEMETOLOGY METHOD 10/31/2024 8:30 AM [facility] Hemoglobin 14.0 13.5 - 17.5 g/dL LAB HEMETOLOGY METHOD 10/31/2024 8:30 AM [facility] Hematocrit 43.7 42.0 - 54.0 % LAB HEMETOLOGY METHOD 10/31/2024 8:30 AM [facility] MCV 94.8 79.0 - 98.0 FL LAB HEMETOLOGY METHOD 10/31/2024 8:30 AM [facility] MCH 30.4 27.0 - 32.0 pcg LAB HEMETOLOGY METHOD 10/31/2024 8:30 AM EST [facility] MCHC 32.0 32.0 - 37.0 g/dL LAB HEMETOLOGY METHOD 10/31/2024 8:30 AM EST [facility] RDW 12.2 11.0 - 15.0 % LAB HEMETOLOGY METHOD 10/31/2024 8:30 AM [facility] Platelets 277 130 - 400 K/mcL LAB HEMETOLOGY METHOD 10/31/2024 8:30 AM EST [facility] MPV 10.2 7.0 - 11.0 FL LAB HEMETOLOGY METHOD 10/31/2024 8:30 AM EST [facility] NRBC 0.0 <1.0 % LAB HEMETOLOGY METHOD 10/31/2024 8:30 AM [facility] NRBC Absolute 0.00 <0.10 K/mcL LAB HEMETOLOGY METHOD 10/31/2024 8:30 AM [facility] Blood Venous blood specimen / Unknown Venipuncture / Unknown 10/31/2024 5:16 AM EST 10/31/2024 8:13 AM EST us Waldo Soler MD LAB BLOOD ORDERABLES Final Resul t [facility] [address] [place] [address], documented in this encounter Visit Diagnoses Diagnosis Hemiplegia and hemiparesis following cerebral infarction affecting left non- dominant side (CMS/HCC V24, CMS/HCC V28) documented in this encounter Care Teams Hearing Aid Assembly Supervisor Relationship Specialty Start Date End Date Waldo Soler MD [address] [place] [address], [phone] PCP - General Family Medicine 10/17/24 documented as of this encounter
--- OUTSIDE RECORDS SUMMARY | 2025-08-30 15:03 | XMS_ITS | Encounter Summary ---
Author Organization [facility] Address [address] [place] [address] Care Team Providers Care Member Of Technical Staff Name Role Phone Waldo Soler MD Primary Care Provider [phone] Encounter Details Date Type Department Care Team (Late st Contact Info) Description 12/30/2024 Lab Requisition [facility] - Main Lab [address] [facility] [place] [address] Waldo Soler MD 38 [facility] [address] [place], [address] Hemiplegia and hemiparesis following cerebral infarction [...] V28) documented in this encounter Care Teams Member Of Technical Staff Relationship Specialty Start Date End Date Waldo Soler MD 38 [facility] [address] [place], [phone] PCP - General Family Medicine 10/17/24 documented as of this encounter
--- OUTSIDE RECORDS SUMMARY | 2025-08-30 15:03 | XMS_ITS | Encounter Summary ---
Author Organization [facility] Address [address] [place] [address] Care Team Providers Care Administrative Personal Assistant Name Role Phone Waldo Soler MD Primary Care Provider [phone] Encounter Details Date Type Department Care Team (Late st Contact Info) Description 12/24/[address] [facility] - Main Lab 299 [facility] [place] [address] Waldo Soler MD [address] [facility] [address] [place], [phone] Hemiplegia and hemiparesis following cerebral infarction [...] V28) documented in this encounter Care Teams Administrative Personal Assistant Relationship Specialty Start Date End Date Waldo Soler MD [address] [facility] [address] [place], [phone] PCP - General Family Medicine 10/17/24 documented as of this encounter
--- OUTSIDE RECORDS SUMMARY | 2025-08-30 15:03 | XMS_ITS | Encounter Summary ---
Author Organization [facility] Address [address] [place] [address] Care Team Providers Care Watch Repair Technician Name Role Phone Waldo Soler MD Primary Care Provider [phone] Encounter Details Date Type Department Care Team (Late st Contact Info) Description 12/02/2024 Lab Requisition [facility] - Main Lab [address] [place] [address] Waldo Soler MD [address] [place] [address] [address] [place], [phone] Hemiplegia and hemiparesis following cerebral infarction [...] Associated Diagnosis Comments COMPLETE BLOOD COUNT Routine 12/05/2024 5:48 AM EST Hemiplegia and hemiparesis 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 (CMS/HCC) COMPREHENSIVE METABOLIC PANEL Routine 12/05/2024 5:48 AM EST Hemiplegia and hemiparesis 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 (CMS/HCC) documented in this encounter Results * Comprehensive metabolic panel (12/05/2024 5:48 AM EST) Sodium 139 133 - 145 mmol/L LAB CHEMISTRY METHOD 12/05/2024 9:30 AM [facility] Potassium 4.8 3.5 - 5.5 mmol/L LAB CHEMISTRY METHOD 12/05/2024 9:30 AM [facility] Chloride 105 96 - 110 mmol/L LAB CHEMISTRY METHOD 12/05/2024 9:30 AM [facility] CO2 31 21 - 32 mmol/L LAB CHEMISTRY METHOD 12/05/2024 9:30 AM [facility] Anion Gap 3 3 - 11 LAB CHEMISTRY METHOD 12/05/2024 9:30 AM [facility] Glucose 70 70 - 100 mg/dL LAB CHEMISTRY METHOD 12/05/2024 9:30 AM [facility] BUN 9 5 - 25 mg/dL LAB CHEMISTRY METHOD 12/05/2024 9:30 AM [facility] Creatinine 1.09 0.70 - 1.30 mg/dL LAB CHEMISTRY METHOD 12/05/2024 9:30 AM [facility] eGFR 72 >=60 mL/min/1. 73m2 LAB CHEMISTRY METHOD 12/05/2024 9:30 AM [facility] Comment:Calculation based on the Chronic Kidney Disease Epidemiology Collaboration (CKD-EPI) equation refit without adjustment for race. BUN/Creatinine Ratio 8.3 LAB CHEMISTRY METHOD 12/05/2024 9:30 AM [facility] Calcium 8.6 8.5 - 10.5 mg/dL LAB CHEMISTRY METHOD 12/05/2024 9:30 AM [facility] AST (SGOT) 20 10 - 42 unit/L LAB CHEMISTRY METHOD 12/05/2024 9:30 AM [facility] ALT (SGPT) 33 10 - 60 unit/L LAB CHEMISTRY METHOD 12/05/2024 9:30 AM [facility] Alkaline Phosphatase 73 42 - 121 unit/L LAB CHEMISTRY METHOD 12/05/2024 9:30 AM [facility] Total Protein 6.5 6.0 - 8.0 g/dL LAB CHEMISTRY METHOD 12/05/2024 9:30 AM EST [facility] Albumin 3.2 3.2 - 5.0 g/dL LAB CHEMISTRY METHOD 12/05/2024 9:30 AM [facility] Total Bilirubin 0.5 0.0 - 1.4 mg/dL LAB CHEMISTRY METHOD 12/05/2024 9:30 AM [facility] Blood Venous blood specimen / Unknown Venipuncture / Unknown 12/05/2024 5:48 AM EST 12/05/2024 8:30 AM EST us Waldo Soler MD LAB BLOOD ORDERABLES Final Resul t [facility] [address] [place] [address], * (ABNORMAL) Complete blood count (12/05/2024 5:48 AM EST) WBC 5.6 4.8 - 10.8 K/mcL LAB HEMETOLOGY METHOD 12/05/2024 8:51 AM [facility] RBC 4.40(L) 4.50 - 5.50 M/mcL LAB HEMETOLOGY METHOD 12/05/2024 8:51 AM [facility] Hemoglobin 13.3(L) 13.5 - 17.5 g/dL LAB HEMETOLOGY METHOD 12/05/2024 8:51 AM [facility] Hematocrit 41.8(L) 42.0 - 54.0 % LAB HEMETOLOGY METHOD 12/05/2024 8:51 AM [facility] MCV 94.6 79.0 - 98.0 FL LAB HEMETOLOGY METHOD 12/05/2024 8:51 AM [facility] MCH 30.1 27.0 - 32.0 pcg LAB HEMETOLOGY METHOD 12/05/2024 8:51 AM EST [facility] MCHC 31.8(L) 32.0 - 37.0 g/dL LAB HEMETOLOGY METHOD 12/05/2024 8:51 AM [facility] RDW 12.5 11.0 - 15.0 % LAB HEMETOLOGY METHOD 12/05/2024 8:51 AM [facility] Platelets 235 130 - 400 K/mcL LAB HEMETOLOGY METHOD 12/05/2024 8:51 AM [facility] MPV 10.1 7.0 - 11.0 FL LAB HEMETOLOGY METHOD 12/05/2024 8:51 AM [facility] NRBC 0.0 <1.0 % LAB HEMETOLOGY METHOD 12/05/2024 8:51 AM [facility] NRBC Absolute 0.00 <0.10 K/mcL LAB HEMETOLOGY METHOD 12/05/2024 8:51 AM [facility] Blood Venous blood specimen / Unknown Venipuncture / Unknown 12/05/2024 5:48 AM EST 12/05/2024 8:30 AM EST us Waldo Soler MD LAB BLOOD ORDERABLES Final Resul t [facility] [address] [place] [address], documented in this encounter Visit Diagnoses Diagnosis Hemiplegia and hemiparesis following cerebral infarction affecting left non- dominant side (CMS/HCC V24, CMS/HCC V28) documented in this encounter Care Teams Watch Repair Technician Relationship Specialty Start Date End Date Waldo Soler MD [address] [place] [address], [phone] PCP - General Family Medicine 10/17/24 documented as of this encounter
--- OUTSIDE RECORDS SUMMARY | 2025-08-30 15:03 | XMS_ITS | Encounter Summary ---
Author Organization [facility] Address [address] [place] [address] Care Team Providers Care Anthropology Department Chair Name Role Phone Waldo Soler MD Primary Care Provider [phone] Encounter Details Date Type Department Care Team (Late st Contact Info) Description 01/15/[address] [facility] - Main Lab 299 [facility] [place] [address] Waldo Soler MD 38 [facility] [address] [place], [address] Hemiplegia and hemiparesis following cerebral infarction [...] V28) documented in this encounter Care Teams Anthropology Department Chair Relationship Specialty Start Date End Date Waldo Soler MD 38 [facility] [address] [place], [phone] PCP - General Family Medicine 10/17/24 documented as of this encounter
--- OUTSIDE RECORDS SUMMARY | 2025-08-30 15:03 | XMS_ITS | Encounter Summary ---
Author Organization [facility] Address [address] [place] [address] Care Team Providers Care Magnetic Resonance Imaging Director Name Role Phone Waldo Soler MD Primary Care Provider [phone] Encounter Details Date Type Department Care Team (Late st Contact Info) Description 01/06/2025 Lab Requisition [facility] - Main Lab 299 [facility] [place] [address] Waldo Soler MD 38 [facility] [address] [place], [phone] Hemiplegia and hemiparesis following cerebral infarction [...] V28) documented in this encounter Care Teams Magnetic Resonance Imaging Director Relationship Specialty Start Date End Date Waldo Soler MD 38 [facility] [address] [place], [phone] PCP - General Family Medicine 10/17/24 documented as of this encounter
--- OUTSIDE RECORDS SUMMARY | 2025-08-30 15:03 | XMS_ITS | Encounter Summary ---
Author Organization [facility] Address [address] [place] [address] Care Team Providers Care Signing Teacher Name Role Phone Waldo Soler MD Primary Care Provider [phone] Encounter Details Date Type Department Care Team (Late st Contact Info) Description 10/17/2024 Lab Requisition [facility] - Main Lab [address] [place] [address] Waldo Soler MD [address] [place] [address] [address] [place], [phone] Hemiplegia and hemiparesis following cerebral infarction [...] Associated Diagnosis Comments COMPLETE BLOOD COUNT Routine 10/17/2024 5:25 AM EST Hemiplegia and hemiparesis 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 (CMS/HCC) COMPREHENSIVE METABOLIC PANEL Routine 10/17/2024 5:25 AM EST Hemiplegia and hemiparesis 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 (CMS/HCC) documented in this encounter Results * Comprehensive metabolic panel (10/17/2024 5:25 AM EST) Sodium 140 133 - 145 mmol/L LAB CHEMISTRY METHOD 10/17/2024 9:06 AM [facility] Potassium 4.5 3.5 - 5.5 mmol/L LAB CHEMISTRY METHOD 10/17/2024 9:06 AM [facility] Chloride 106 96 - 110 mmol/L LAB CHEMISTRY METHOD 10/17/2024 9:06 AM [facility] CO2 29 21 - 32 mmol/L LAB CHEMISTRY METHOD 10/17/2024 9:06 AM [facility] Anion Gap 5 3 - 11 LAB CHEMISTRY METHOD 10/17/2024 9:06 AM [facility] Glucose 70 70 - 100 mg/dL LAB CHEMISTRY METHOD 10/17/2024 9:06 AM [facility] BUN 25 5 - 25 mg/dL LAB CHEMISTRY METHOD 10/17/2024 9:06 AM [facility] Creatinine 1.10 0.70 - 1.30 mg/dL LAB CHEMISTRY METHOD 10/17/2024 9:06 AM [facility] eGFR 72 >=60 mL/min/1. 73m2 LAB CHEMISTRY METHOD 10/17/2024 9:06 AM [facility] Comment:Calculation based on the Chronic Kidney Disease Epidemiology Collaboration (CKD-EPI) equation refit without adjustment for race. BUN/Creatinine Ratio 22.7 LAB CHEMISTRY METHOD 10/17/2024 9:06 AM [facility] Calcium 9.3 8.5 - 10.5 mg/dL LAB CHEMISTRY METHOD 10/17/2024 9:06 AM [facility] AST (SGOT) 30 10 - 42 unit/L LAB CHEMISTRY METHOD 10/17/2024 9:06 AM [facility] ALT (SGPT) 35 10 - 60 unit/L LAB CHEMISTRY METHOD 10/17/2024 9:06 AM [facility] Alkaline Phosphatase 86 42 - 121 unit/L LAB CHEMISTRY METHOD 10/17/2024 9:06 AM [facility] Total Protein 7.1 6.0 - 8.0 g/dL LAB CHEMISTRY METHOD 10/17/2024 9:06 AM EST [facility] Albumin 3.6 3.2 - 5.0 g/dL LAB CHEMISTRY METHOD 10/17/2024 9:06 AM [facility] Total Bilirubin 0.6 0.0 - 1.4 mg/dL LAB CHEMISTRY METHOD 10/17/2024 9:06 AM [facility] Blood Venous blood specimen / Unknown Venipuncture / Unknown 10/17/2024 5:25 AM EST 10/17/2024 7:30 AM EST us Waldo Soler MD LAB BLOOD ORDERABLES Final Resul t [facility] [address] [place] [address], * Complete blood count (10/17/2024 5:25 AM EST) WBC 6.6 4.8 - 10.8 K/mcL LAB HEMETOLOGY METHOD 10/17/2024 8:16 AM [facility] RBC 4.90 4.50 - 5.50 M/mcL LAB HEMETOLOGY METHOD 10/17/2024 8:16 AM [facility] Hemoglobin 14.9 13.5 - 17.5 g/dL LAB HEMETOLOGY METHOD 10/17/2024 8:16 AM [facility] Hematocrit 46.5 42.0 - 54.0 % LAB HEMETOLOGY METHOD 10/17/2024 8:16 AM [facility] MCV 94.7 79.0 - 98.0 FL LAB HEMETOLOGY METHOD 10/17/2024 8:16 AM [facility] MCH 30.3 27.0 - 32.0 pcg LAB HEMETOLOGY METHOD 10/17/2024 8:16 AM [facility] MCHC 32.0 32.0 - 37.0 g/dL LAB HEMETOLOGY METHOD 10/17/2024 8:16 AM EST [facility] RDW 12.6 11.0 - 15.0 % LAB HEMETOLOGY METHOD 10/17/2024 8:16 AM [facility] Platelets 261 130 - 400 K/mcL LAB HEMETOLOGY METHOD 10/17/2024 8:16 AM EST [facility] MPV 10.4 7.0 - 11.0 FL LAB HEMETOLOGY METHOD 10/17/2024 8:16 AM EST [facility] NRBC 0.0 <1.0 % LAB HEMETOLOGY METHOD 10/17/2024 8:16 AM [facility] NRBC Absolute 0.00 <0.10 K/mcL LAB HEMETOLOGY METHOD 10/17/2024 8:16 AM [facility] Blood Venous blood specimen / Unknown Venipuncture / Unknown 10/17/2024 5:25 AM EST 10/17/2024 7:30 AM EST us Waldo Soler MD LAB BLOOD ORDERABLES Final Resul t [facility] [address] [place] [address], documented in this encounter Visit Diagnoses Diagnosis Hemiplegia and hemiparesis following cerebral infarction affecting left non- dominant side (CMS/HCC V24, CMS/HCC V28) documented in this encounter Care Teams Signing Teacher Relationship Specialty Start Date End Date Waldo Soler MD [address] [place] [address], [phone] PCP - General Family Medicine 10/17/24 documented as of this encounter
--- OUTSIDE RECORDS SUMMARY | 2025-08-30 15:03 | XMS_ITS | Encounter Summary ---
Author Organization [facility] Address [address] [place] [address] Care Team Providers Care Components Engineer Name Role Phone Waldo Soler MD Primary Care Provider Encounter Details Date Type Department Care Team (Late st Contact Info) Description 11/05/2024 Lab Requisition [facility] - Main Lab 299 [facility] [place] [address] Waldo Soler MD [address] [place] [address] [address] [place], [phone] Hemiplegia and hemiparesis following cerebral infarction [...] Associated Diagnosis Comments COMPLETE BLOOD COUNT Routine 11/07/2024 5:30 AM EST Hemiplegia and hemiparesis 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 (CMS/HCC) COMPREHENSIVE METABOLIC PANEL Routine 11/07/2024 5:30 AM EST Hemiplegia and hemiparesis 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 (CMS/HCC) documented in this encounter Results * (ABNORMAL) Comprehensive metabolic panel (11/07/2024 5:30 AM EST) Sodium 139 133 - 145 mmol/L LAB CHEMISTRY METHOD 11/07/2024 10:16 AM [facility] Potassium 4.6 3.5 - 5.5 mmol/L LAB CHEMISTRY METHOD 11/07/2024 10:16 AM [facility] Chloride 104 96 - 110 mmol/L LAB CHEMISTRY METHOD 11/07/2024 10:16 AM [facility] CO2 30 21 - 32 mmol/L LAB CHEMISTRY METHOD 11/07/2024 10:16 AM [facility] Anion Gap 5 3 - 11 LAB CHEMISTRY METHOD 11/07/2024 10:16 AM [facility] Glucose 70 70 - 100 mg/dL LAB CHEMISTRY METHOD 11/07/2024 10:16 AM [facility] BUN 15 5 - 25 mg/dL LAB CHEMISTRY METHOD 11/07/2024 10:16 AM [facility] Creatinine 1.00 0.70 - 1.30 mg/dL LAB CHEMISTRY METHOD 11/07/2024 10:16 AM [facility] eGFR 80 >=60 mL/min/1. 73m2 LAB CHEMISTRY METHOD 11/07/2024 10:16 AM [facility] Comment:Calculation based on the Chronic Kidney Disease Epidemiology Collaboration (CKD-EPI) equation refit without adjustment for race. BUN/Creatinine Ratio 15.0 LAB CHEMISTRY METHOD 11/07/2024 10:16 AM [facility] Calcium 9.2 8.5 - 10.5 mg/dL LAB CHEMISTRY METHOD 11/07/2024 10:16 AM [facility] AST (SGOT) 34 10 - 42 unit/L LAB CHEMISTRY METHOD 11/07/2024 10:16 AM [facility] ALT (SGPT) 63(H) 10 - 60 unit/L LAB CHEMISTRY METHOD 11/07/2024 10:16 AM [facility] Alkaline Phosphatase 79 42 - 121 unit/L LAB CHEMISTRY METHOD 11/07/2024 10:16 AM [facility] Total Protein 6.7 6.0 - 8.0 g/dL LAB CHEMISTRY METHOD 11/07/2024 10:16 AM EST [facility] Albumin 3.4 3.2 - 5.0 g/dL LAB CHEMISTRY METHOD 11/07/2024 10:16 AM [facility] Total Bilirubin 0.4 0.0 - 1.4 mg/dL LAB CHEMISTRY METHOD 11/07/2024 10:16 AM EST [facility] Blood Venous blood specimen / Unknown Venipuncture / Unknown 11/07/2024 5:30 AM EST 11/07/2024 9:22 AM EST us Waldo Soler MD LAB BLOOD ORDERABLES Final Resul t [facility] [address] [place] [address], * (ABNORMAL) Complete blood count (11/07/2024 5:30 AM EST) WBC 6.2 4.8 - 10.8 K/mcL LAB HEMETOLOGY METHOD 11/07/2024 9:48 AM [facility] RBC 4.80 4.50 - 5.50 M/mcL LAB HEMETOLOGY METHOD 11/07/2024 9:48 AM [facility] Hemoglobin 14.4 13.5 - 17.5 g/dL LAB HEMETOLOGY METHOD 11/07/2024 9:48 AM [facility] Hematocrit 45.3 42.0 - 54.0 % LAB HEMETOLOGY METHOD 11/07/2024 9:48 AM [facility] MCV 94.8 79.0 - 98.0 FL LAB HEMETOLOGY METHOD 11/07/2024 9:48 AM [facility] MCH 30.1 27.0 - 32.0 pcg LAB HEMETOLOGY METHOD 11/07/2024 9:48 AM EST [facility] MCHC 31.8(L) 32.0 - 37.0 g/dL LAB HEMETOLOGY METHOD 11/07/2024 9:48 AM [facility] RDW 12.2 11.0 - 15.0 % LAB HEMETOLOGY METHOD 11/07/2024 9:48 AM [facility] Platelets 268 130 - 400 K/mcL LAB HEMETOLOGY METHOD 11/07/2024 9:48 AM EST [facility] MPV 10.2 7.0 - 11.0 FL LAB HEMETOLOGY METHOD 11/07/2024 9:48 AM [facility] NRBC 0.0 <1.0 % LAB HEMETOLOGY METHOD 11/07/2024 9:48 AM [facility] NRBC Absolute 0.00 <0.10 K/mcL LAB HEMETOLOGY METHOD 11/07/2024 9:48 AM [facility] Blood Venous blood specimen / Unknown Venipuncture / Unknown 11/07/2024 5:30 AM EST 11/07/2024 9:25 AM EST us Waldo Soler MD LAB BLOOD ORDERABLES Final Resul t [facility] [address] [place] [address], documented in this encounter Visit Diagnoses Diagnosis Hemiplegia 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
--- OUTSIDE RECORDS SUMMARY | 2025-08-30 15:03 | XMS_ITS | Encounter Summary ---
Author Organization [facility] Address [address] [place] [address] Care Team Providers Care Mineral Wool Insulation Supervisor Name Role Phone Waldo Soler MD Primary Care Provider [phone] Encounter Details Date Type Department Care Team (Late st Contact Info) Description 01/09/2025 Lab Requisition [facility] - Main Lab 299 [facility] [place] [address] Waldo Soler MD 38 [facility] 204 [place], [address] Hemiplegia and hemiparesis following cerebral infarction [...] V28) documented in this encounter Care Teams Mineral Wool Insulation Supervisor Relationship Specialty Start Date End Date Waldo Soler MD 38 [facility] 204 [place], [address] PCP - General Family Medicine 10/17/24 documented as of this encounter
--- OUTSIDE RECORDS SUMMARY | 2025-08-30 15:03 | XMS_ITS | Encounter Summary ---
Author Organization [facility] Address [address] [place] [address] Care Team Providers Care Glass Pulverizer Equipment Operator Name Role Phone Waldo Soler MD Primary Care Provider [phone] Encounter Details Date Type Department Care Team (Late st Contact Info) Description 12/09/2024 Lab Requisition [facility] - Main Lab 299 [facility] [address] Waldo Soler MD [address] [place] [address] [address] [place], [phone] Hemiplegia and hemiparesis following cerebral infarction [...] Associated Diagnosis Comments COMPLETE BLOOD COUNT Routine 12/12/2024 5:13 AM EST Hemiplegia and hemiparesis 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 (CMS/HCC) COMPREHENSIVE METABOLIC PANEL Routine 12/12/2024 5:13 AM EST Hemiplegia and hemiparesis 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 (CMS/HCC) documented in this encounter Results * (ABNORMAL) Comprehensive metabolic panel (12/12/2024 5:13 AM EST) Sodium 137 133 - 145 mmol/L LAB CHEMISTRY METHOD 12/12/2024 10:45 AM [facility] Potassium 5.2 3.5 - 5.5 mmol/L LAB CHEMISTRY METHOD 12/12/2024 10:45 AM [facility] Chloride 103 96 - 110 mmol/L LAB CHEMISTRY METHOD 12/12/2024 10:45 AM [facility] CO2 30 21 - 32 mmol/L LAB CHEMISTRY METHOD 12/12/2024 10:45 AM [facility] Anion Gap 4 3 - 11 LAB CHEMISTRY METHOD 12/12/2024 10:45 AM [facility] Glucose 65(L) 70 - 100 mg/dL LAB CHEMISTRY METHOD 12/12/2024 10:45 AM [facility] BUN 12 5 - 25 mg/dL LAB CHEMISTRY METHOD 12/12/2024 10:45 AM [facility] Creatinine 1.02 0.70 - 1.30 mg/dL LAB CHEMISTRY METHOD 12/12/2024 10:45 AM [facility] eGFR 78 >=60 mL/min/1. 73m2 LAB CHEMISTRY METHOD 12/12/2024 10:45 AM [facility] Comment:Calculation based on the Chronic Kidney Disease Epidemiology Collaboration (CKD-EPI) equation refit without adjustment for race. BUN/Creatinine Ratio 11.8 LAB CHEMISTRY METHOD 12/12/2024 10:45 AM [facility] Calcium 8.8 8.5 - 10.5 mg/dL LAB CHEMISTRY METHOD 12/12/2024 10:45 AM [facility] AST (SGOT) 15 10 - 42 unit/L LAB CHEMISTRY METHOD 12/12/2024 10:45 AM [facility] ALT (SGPT) 30 10 - 60 unit/L LAB CHEMISTRY METHOD 12/12/2024 10:45 AM [facility] Alkaline Phosphatase 70 42 - 121 unit/L LAB CHEMISTRY METHOD 12/12/2024 10:45 AM [facility] Total Protein 6.4 6.0 - 8.0 g/dL LAB CHEMISTRY METHOD 12/12/2024 10:45 AM EST [facility] Albumin 3.2 3.2 - 5.0 g/dL LAB CHEMISTRY METHOD 12/12/2024 10:45 AM [facility] Total Bilirubin 0.4 0.0 - 1.4 mg/dL LAB CHEMISTRY METHOD 12/12/2024 10:45 AM EST [facility] Blood Venous blood specimen / Unknown Venipuncture / Unknown 12/12/2024 5:13 AM EST 12/12/2024 9:31 AM EST us Waldo Soler MD LAB BLOOD ORDERABLES Final Resul t [facility] [address] [place] [address], * (ABNORMAL) Complete blood count (12/12/2024 5:13 AM EST) WBC 6.1 4.8 - 10.8 K/mcL LAB HEMETOLOGY METHOD 12/12/2024 10:11 AM [facility] RBC 4.40(L) 4.50 - 5.50 M/mcL LAB HEMETOLOGY METHOD 12/12/2024 10:11 AM [facility] Hemoglobin 13.1(L) 13.5 - 17.5 g/dL LAB HEMETOLOGY METHOD 12/12/2024 10:11 AM [facility] Hematocrit 40.9(L) 42.0 - 54.0 % LAB HEMETOLOGY METHOD 12/12/2024 10:11 AM [facility] MCV 93.2 79.0 - 98.0 FL LAB HEMETOLOGY METHOD 12/12/2024 10:11 AM [facility] MCH 29.8 27.0 - 32.0 pcg LAB HEMETOLOGY METHOD 12/12/2024 10:11 AM EST [facility] MCHC 32.0 32.0 - 37.0 g/dL LAB HEMETOLOGY METHOD 12/12/2024 10:11 AM [facility] RDW 12.4 11.0 - 15.0 % LAB HEMETOLOGY METHOD 12/12/2024 10:11 AM [facility] Platelets 241 130 - 400 K/mcL LAB HEMETOLOGY METHOD 12/12/2024 10:11 AM [facility] MPV 10.5 7.0 - 11.0 FL LAB HEMETOLOGY METHOD 12/12/2024 10:11 AM [facility] NRBC 0.0 <1.0 % LAB HEMETOLOGY METHOD 12/12/2024 10:11 AM [facility] NRBC Absolute 0.00 <0.10 K/mcL LAB HEMETOLOGY METHOD 12/12/2024 10:11 AM [facility] Blood Venous blood specimen / Unknown Venipuncture / Unknown 12/12/2024 5:13 AM EST 12/12/2024 9:31 AM EST us Waldo Soler MD LAB BLOOD ORDERABLES Final Resul t [facility] [address] [place] [address], documented in this encounter Visit Diagnoses Diagnosis Hemiplegia and hemiparesis following cerebral infarction affecting left non- dominant side (CMS/HCC V24, CMS/HCC V28) documented in this encounter Care Teams Glass Pulverizer Equipment Operator Relationship Specialty Start Date End Date Waldo Soler MD [address] [place] [address], [phone] PCP - General Family Medicine 10/17/24 documented as of this encounter
--- OUTSIDE RECORDS SUMMARY | 2025-08-30 15:03 | XMS_ITS | Encounter Summary ---
Author Organization [facility] Address [address] [place] [address] Care Team Providers Care Learning And Development Manager Name Role Phone Waldo Soler MD Primary Care Provider [phone] Encounter Details Date Type Department Care Team (Late st Contact Info) Description 01/21/2025 Lab Requisition [facility] - Main Lab 299 [facility] [place] [address] Waldo Soler MD 38 [facility] 204 [place], [address] Hemiplegia and hemiparesis following cerebral infarction [...] V28) documented in this encounter Care Teams Learning And Development Manager Relationship Specialty Start Date End Date Waldo Soler MD 38 [facility] [address] [place], [address] PCP - General Family Medicine 10/17/24 documented as of this encounter
--- OUTSIDE RECORDS SUMMARY | 2025-08-30 15:03 | XMS_ITS | Encounter Summary ---
Author Organization [facility] Address [address] [place] [address] Care Team Providers Care Final Assembly Inspector Name Role Phone Waldo Soler MD Primary Care Provider [phone] Encounter Details Date Type Department Care Team (Late st Contact Info) Description 11/11/[address] 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 (CMS/HCC) documented in this encounter Results * Comprehensive metabolic panel (11/14/2024 5:40 AM EST) Sodium 139 133 - 145 mmol/L LAB CHEMISTRY METHOD 11/14/2024 1:08 PM [facility] Potassium 4.4 3.5 - 5.5 mmol/L LAB CHEMISTRY METHOD 11/14/2024 1:08 PM [facility] Chloride 102 96 - 110 mmol/L LAB CHEMISTRY METHOD 11/14/2024 1:08 PM [facility] CO2 29 21 - 32 mmol/L LAB CHEMISTRY METHOD 11/14/2024 1:08 PM [facility] Anion Gap 8 3 - 11 LAB CHEMISTRY METHOD 11/14/2024 1:08 PM [facility] Glucose 71 70 - 100 mg/dL LAB CHEMISTRY METHOD 11/14/2024 1:08 PM [facility] BUN 7 5 - 25 mg/dL LAB CHEMISTRY METHOD 11/14/2024 1:08 PM [facility] Creatinine 0.83 0.70 - 1.30 mg/dL LAB CHEMISTRY METHOD 11/14/2024 1:08 PM [facility] eGFR 93 >=60 mL/min/1. 73m2 LAB CHEMISTRY METHOD 11/14/2024 1:08 PM [facility] Comment:Calculation based on the Chronic Kidney Disease Epidemiology Collaboration (CKD-EPI) equation refit without adjustment for race. BUN/Creatinine Ratio 8.4 LAB CHEMISTRY METHOD 11/14/2024 1:08 PM [facility] Calcium 9.3 8.5 - 10.5 mg/dL LAB CHEMISTRY METHOD 11/14/2024 1:08 PM [facility] AST (SGOT) 27 10 - 42 unit/L LAB CHEMISTRY METHOD 11/14/2024 1:08 PM [facility] ALT (SGPT) 60 10 - 60 unit/L LAB CHEMISTRY METHOD 11/14/2024 1:08 PM [facility] Alkaline Phosphatase 80 42 - 121 unit/L LAB CHEMISTRY METHOD 11/14/2024 1:08 PM [facility] Total Protein 6.6 6.0 - 8.0 g/dL LAB CHEMISTRY METHOD 11/14/2024 1:[address] [facility] Albumin 3.4 3.2 - 5.0 g/dL LAB CHEMISTRY METHOD 11/14/2024 1:08 PM [facility] Total Bilirubin 0.5 0.0 - 1.4 mg/dL LAB CHEMISTRY METHOD 11/14/2024 1:[address] [facility] Blood Venous blood specimen / Unknown Venipuncture / Unknown 11/14/2024 5:40 AM EST 11/14/2024 10:23 AM EST us Waldo Soler MD LAB BLOOD ORDERABLES Final Resul t [facility] [address] [place] [address], * Complete blood count (11/14/2024 5:40 AM EST) WBC 6.2 4.8 - 10.8 K/mcL LAB HEMETOLOGY METHOD 11/14/2024 10:48 AM [facility] RBC 4.80 4.50 - 5.50 M/mcL LAB HEMETOLOGY METHOD 11/14/2024 10:48 AM [facility] Hemoglobin 14.7 13.5 - 17.5 g/dL LAB HEMETOLOGY METHOD 11/14/2024 10:48 AM [facility] Hematocrit 45.9 42.0 - 54.0 % LAB HEMETOLOGY METHOD 11/14/2024 10:48 AM [facility] MCV 94.8 79.0 - 98.0 FL LAB HEMETOLOGY METHOD 11/14/2024 10:48 AM [facility] MCH 30.4 27.0 - 32.0 pcg LAB HEMETOLOGY METHOD 11/14/2024 10:48 AM [facility] MCHC 32.0 32.0 - 37.0 g/dL LAB HEMETOLOGY METHOD 11/14/2024 10:[address] [facility] RDW 12.6 11.0 - 15.0 % LAB HEMETOLOGY METHOD 11/14/2024 10:48 AM [facility] Platelets 251 130 - 400 K/mcL LAB HEMETOLOGY METHOD 11/14/2024 10:[address] [facility] MPV 10.1 7.0 - 11.0 FL LAB HEMETOLOGY METHOD 11/14/2024 10:[address] [facility] NRBC 0.0 <1.0 % LAB HEMETOLOGY METHOD 11/14/2024 10:48 AM [facility] NRBC Absolute 0.00 <0.10 K/mcL LAB HEMETOLOGY METHOD 11/14/2024 10:48 AM [facility] Blood Venous blood specimen / Unknown Venipuncture / Unknown 11/14/2024 5:40 AM EST 11/14/2024 10:27 AM EST us Waldo Soler MD LAB BLOOD ORDERABLES Final Resul t [facility] [address] [place] [address], documented in this encounter Visit Diagnoses Diagnosis Hemiplegia and hemiparesis following cerebral infarction affecting left non- dominant side (CMS/HCC V24, CMS/HCC V28) documented in this encounter Care Teams Final Assembly Inspector Relationship Specialty Start Date End Date Waldo Soler MD [address] [place] [address], [phone] PCP - General Family Medicine 10/17/24 documented as of this encounter
--- OUTSIDE RECORDS SUMMARY | 2025-08-30 15:03 | XMS_ITS | Encounter Summary ---
Author Organization [facility] Address [address] [place] [address] Care Team Providers Care Sweep Molder Name Role Phone Waldo Soler MD Primary Care Provider [phone] Encounter Details Date Type Department Care Team (Late st Contact Info) Description 11/19/2024 Lab Requisition [facility] - Main Lab 299 [facility] [place] [address] Waldo Soler MD [address] [place] [address] [address] [place], [address] Hemiplegia and hemiparesis following cerebral infarction [...] Associated Diagnosis Comments COMPLETE BLOOD COUNT Routine 11/21/2024 5:26 AM EST Hemiplegia and hemiparesis 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 (CMS/HCC) COMPREHENSIVE METABOLIC PANEL Routine 11/21/2024 5:26 AM EST Hemiplegia and hemiparesis 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 (CMS/HCC) documented in this encounter Results * (ABNORMAL) Comprehensive metabolic panel (11/21/2024 5:26 AM EST) Sodium 139 133 - 145 mmol/L LAB CHEMISTRY METHOD 11/21/2024 10:12 AM [facility] Potassium 5.5 3.5 - 5.5 mmol/L LAB CHEMISTRY METHOD 11/21/2024 10:12 AM [facility] Chloride 106 96 - 110 mmol/L LAB CHEMISTRY METHOD 11/21/2024 10:12 AM [facility] CO2 31 21 - 32 mmol/L LAB CHEMISTRY METHOD 11/21/2024 10:12 AM [facility] Anion Gap 2(L) 3 - 11 LAB CHEMISTRY METHOD 11/21/2024 10:12 AM [facility] Glucose 90 70 - 100 mg/dL LAB CHEMISTRY METHOD 11/21/2024 10:12 AM [facility] BUN 10 5 - 25 mg/dL LAB CHEMISTRY METHOD 11/21/2024 10:12 AM [facility] Creatinine 1.06 0.70 - 1.30 mg/dL LAB CHEMISTRY METHOD 11/21/2024 10:12 AM [facility] eGFR 75 >=60 mL/min/1. 73m2 LAB CHEMISTRY METHOD 11/21/2024 10:12 AM [facility] Comment:Calculation based on the Chronic Kidney Disease Epidemiology Collaboration (CKD-EPI) equation refit without adjustment for race. BUN/Creatinine Ratio 9.4 LAB CHEMISTRY METHOD 11/21/2024 10:12 AM [facility] Calcium 9.1 8.5 - 10.5 mg/dL LAB CHEMISTRY METHOD 11/21/2024 10:12 AM [facility] AST (SGOT) 27 10 - 42 unit/L LAB CHEMISTRY METHOD 11/21/2024 10:12 AM [facility] ALT (SGPT) 49 10 - 60 unit/L LAB CHEMISTRY METHOD 11/21/2024 10:12 AM [facility] Alkaline Phosphatase 75 42 - 121 unit/L LAB CHEMISTRY METHOD 11/21/2024 10:12 AM [facility] Total Protein 6.3 6.0 - 8.0 g/dL LAB CHEMISTRY METHOD 11/21/2024 10:12 AM [facility] Albumin 3.0(L) 3.2 - 5.0 g/dL LAB CHEMISTRY METHOD 11/21/2024 10:12 AM [facility] Total Bilirubin 0.3 0.0 - 1.4 mg/dL LAB CHEMISTRY METHOD 11/21/2024 10:12 AM [facility] Blood Venous blood specimen / Unknown Venipuncture / Unknown 11/21/2024 5:26 AM EST 11/21/2024 9:33 AM EST us Waldo Soler MD LAB BLOOD ORDERABLES Final Resul t [facility] [address] [place] [address], * (ABNORMAL) Complete blood count (11/21/2024 5:26 AM EST) WBC 5.8 4.8 - 10.8 K/mcL LAB HEMETOLOGY METHOD 11/21/2024 9:43 AM [facility] RBC 4.40(L) 4.50 - 5.50 M/mcL LAB HEMETOLOGY METHOD 11/21/2024 9:43 AM [facility] Hemoglobin 13.2(L) 13.5 - 17.5 g/dL LAB HEMETOLOGY METHOD 11/21/2024 9:43 AM [facility] Hematocrit 41.3(L) 42.0 - 54.0 % LAB HEMETOLOGY METHOD 11/21/2024 9:43 AM [facility] MCV 94.5 79.0 - 98.0 FL LAB HEMETOLOGY METHOD 11/21/2024 9:43 AM [facility] MCH 30.2 27.0 - 32.0 pcg LAB HEMETOLOGY METHOD 11/21/2024 9:[address] [facility] MCHC 32.0 32.0 - 37.0 g/dL LAB HEMETOLOGY METHOD 11/21/2024 9:43 AM [facility] RDW 12.4 11.0 - 15.0 % LAB HEMETOLOGY METHOD 11/21/2024 9:43 AM [facility] Platelets 225 130 - 400 K/mcL LAB HEMETOLOGY METHOD 11/21/2024 9:43 AM [facility] MPV 10.8 7.0 - 11.0 FL LAB HEMETOLOGY METHOD 11/21/2024 9:43 AM [facility] NRBC 0.0 <1.0 % LAB HEMETOLOGY METHOD 11/21/2024 9:43 AM [facility] NRBC Absolute 0.00 <0.10 K/mcL LAB HEMETOLOGY METHOD 11/21/2024 9:43 AM [facility] Blood Venous blood specimen / Unknown Venipuncture / Unknown 11/21/2024 5:26 AM EST 11/21/2024 9:33 AM EST us Waldo Soler MD LAB BLOOD ORDERABLES Final Resul t 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
--- OUTSIDE RECORDS SUMMARY | 2025-08-30 15:03 | XMS_ITS | Encounter Summary ---
Author Organization [facility] Address [address] [place] [address] Care Team Providers Care Wardrobe Consultant Name Role Phone Waldo Soler MD Primary Care Provider [phone] Encounter Details Date Type Department Care Team (Late st Contact Info) Description 12/16/[address] 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 (CMS/HCC) documented in this encounter Results * Complete blood count (12/19/2024 5:16 AM EST) WBC 6.1 4.8 - 10.8 K/[facility] LAB HEMETOLOGY METHOD 12/19/2024 11:13 AM EST [facility] LAB RBC 4.50 4.50 - 5.50 M/[facility] LAB HEMETOLOGY METHOD 12/19/2024 11:13 AM EST [facility] LAB Hemoglobin 13.6 13.5 - 17.5 g/dL LAB HEMETOLOGY METHOD 12/19/2024 11:13 AM [facility] LAB Hematocrit 42.5 42.0 - 54.0 % LAB HEMETOLOGY METHOD 12/19/2024 11:13 AM [facility] LAB MCV 93.8 79.0 - 98.0 FL LAB HEMETOLOGY METHOD 12/19/2024 11:13 AM [facility] LAB MCH 30.0 27.0 - 32.0 pcg LAB HEMETOLOGY METHOD 12/19/2024 11:13 AM [facility] LAB MCHC 32.0 32.0 - 37.0 g/dL LAB HEMETOLOGY METHOD 12/19/2024 11:13 AM [facility] LAB RDW 12.6 11.0 - 15.0 % LAB HEMETOLOGY METHOD 12/19/2024 11:13 AM [facility] LAB Platelets 211 130 - 400 K/mcL LAB HEMETOLOGY METHOD 12/19/2024 11:13 AM [facility] LAB MPV 10.2 7.0 - 11.0 FL LAB HEMETOLOGY METHOD 12/19/2024 11:13 AM [facility] LAB NRBC 0.0 <1.0 % LAB HEMETOLOGY METHOD 12/19/2024 11:13 AM [facility] LAB NRBC Absolute 0.00 <0.10 K/mcL LAB HEMETOLOGY METHOD 12/19/2024 11:13 AM [facility] LAB Blood Venous blood specimen / Unknown Venipuncture / Unknown 12/19/2024 5:16 AM EST 12/19/2024 9:58 AM EST us Waldo Soler MD LAB BLOOD ORDERABLES Final Resul t [facility] [address] [place] [address], documented in this encounter Visit Diagnoses Diagnosis Hemiplegia and hemiparesis following cerebral infarction affecting left non- dominant side (CMS/HCC V24, CMS/HCC V28) documented in this encounter Care Teams Wardrobe Consultant Relationship Specialty Start Date End Date Waldo Soler MD [address] [place] [address], [phone] PCP - General Family Medicine 10/17/24 documented as of this encounter
== END 2025-08-30 14:37 | disposition home or self-care (01) ==
LOC: HO.HMCH 13:48
DX: I10 Essential (primary) hypertension (principal); I63.9 Cerebral infarction, unspecified; G81.94 Hemiplegia, unspecified affecting left nondominant side; F10.90 Alcohol use, unspecified, uncomplicated; E78.00 Pure hypercholesterolemia, unspecified; R32 Unspecified urinary incontinence; F32.A Depression, unspecified; R20.9 Unspecified disturbances of skin sensation

== ENCOUNTER → 2025-08-30 13:47 | Outpatient (BNVA) | payer MEDICARE, MEDICAID, SELFPAY | DX: I10 Essential (primary) hypertension (principal); F01.B0 Vascular dementia, moderate, without behavioral disturbance, psychotic disturbance, mood disturbance, and anxiety; E78.00 Pure hypercholesterolemia, unspecified; F32.A Depression, unspecified; F10.90 Alcohol use, unspecified, uncomplicated; R32 Unspecified urinary incontinence; G81.94 Hemiplegia, unspecified affecting left nondominant side; R20.9 Unspecified disturbances of skin sensation; Z86.73 Personal history of transient ischemic attack (TIA), and cerebral infarction without residual deficits | CPT/HCPCS: 99202; 99212 ==

== ENCOUNTER 2025-08-30 14:49 | Outpatient (AMB) | payer MEDICARE, MEDICAID, SELFPAY ==
--- NOTE | 2025-08-30 15:18 | MHC.OFFVIS ---
Intake Visit Reasons: Cerebral Infarction Allergies No Known Allergies Allergy (Verified 08/30/25 14:06) HPI Comments Details: The patient is a 74-year-old male presenting with concerns regarding mental competence and neurological evaluation following a stroke. In September 2024, he suffered an acute ischemic stroke affecting the right anterior cerebral artery distribution. This resulted in left-sided hemiparesis and a significant level of physical disability. Prior to this, the patient had a history of hypertension and cardiovascular disease, having undergone a cardiac stent placement. Current impairments include a severe motor disability characterized by inability to walk independently and requiring assistance to stand. Also notable is cognitive decline, with symptoms suggesting vascular dementia, including confusion, memory deficits, and disorientation. He is under the care of his son and is on a regimen of aspirin and clopidogrel for secondary prevention of strokes. 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 [facility] Medical History Acute cerebral infarction Surgical History History of ear surgery History of heart artery stent History of appendectomy Social History Household Members: None Housing: Apartment Do you presently have visiting nurse or other home services: Yes (Has partner who helps provide care for and to him) Alcohol intake: current Alcohol intake frequency: a few times a week Alcohol type: beer Patient Tobacco Use Status: Former Tobacco user Tobacco use type: Cigarette Cigarette Packs Per Day: 0.5 Cigarettes Per Day: 5 e-Cigarette/Vaping Use: Never Used Second Hand Smoke Exposure: Yes service: No Current occupational status: retired Cognitive needs: Yes (Wheelchair) Hearing needs: No Vision needs: No Review of Systems Const Details: - Neurological: Reports memory impairment, poor concentration, and disorientation. Reports left-sided weakness and motor disability. - Cardiovascular: Denies current symptoms but has history of hypertension and stent placement. - Musculoskeletal: Reports significant physical disability and inability to walk unassisted. Physical Exam Neuro Other: Mental Status: Alert and awake with normal spontaneity of speech fluency comprehension and affect. His mini-mental status score was 23. Cranial Nerves: CN II: Visual de la garza full to confrontation, visual acuity intact. CN III, IV, : Pupils equal, round, reactive to light and accommodation. Extraocular movements are normal. CN V: Facial sensation is normal. CN VII: Facial movements symmetrical. CN VIII: Hearing intact to bedside conversation is normal. CN IX, X: Palate elevates symmetrically. CN XI: Shoulder shrug and head turn symmetrical. CN XII: Tongue midline without atrophy or fasciculations. Motor: Mild left hemiparesis. Deep tendon reflexes are trace to absent. He is in a wheelchair and according to his son he required help to stand up. He was unable to walk on his own. Extrapyramidal: Full facial expressions and blinking. No rigidity. Movements are appropriate with no tremor or abnormality. Speech: Normal; no dysarthria or tremor. Assessment & Plan Assessment & Plan (1) Multiple cerebral infarctions: Code(s): I63.9 - Cerebral infarction, unspecified Category: Medical (2) Vascular dementia: Code(s): F01.50 - Vascular dementia, unspecified severity, without behavioral disturbance, psychotic disturbance, mood disturbance, and anxiety Category: Medical Qualifiers: Dementia severity: moderate Dementia behavioral or psychological symptom: without behavioral, psychotic, or mood disturbance or anxiety Qualified Code(s): F01.B0 - Vascular dementia, moderate, without behavioral disturbance, psychotic disturbance, mood disturbance, and anxiety Plan Impression: 1. Multiple cerebral infarction of embolic type 2. Vascular dementia, [id number] 3. Physical disability related to multiple cerebral infarction especially the right anterior cerebral artery area infarct happened in 2023 impacting his ability to stand up and walk Recommendations: 1. His main issue is his inability to take care of himself due to physical disability. This requires constant help and care. His son is providing this service at this time. 2. He is on dual anti-platelet therapy including aspirin and clopidogrel, which can continue. 3. 7 days cardica Holter During the consultation, I discussed the patient's current condition, which includes left-sided weakness due to past ischemic events and cognitive concerns possibly aligning with vascular dementia. I highlighted the treatment options such as continuing dual antiplatelet therapy for stroke prevention and stressed the importance of blood pressure management. I proposed cardiac monitoring to assess for arrhythmias given the history of cerebral infarctions and cardiovascular disease managed by stenting. Diagnostic evaluations including a Holter monitor were considered to gain a clearer picture of cardiac rhythm disturbances. The necessity of engaging in physical therapy for motor recovery and cognitive assessments for further dementia evaluation was discussed. I explained these measures would offer comprehensive care aimed at enhancing the patient's quality of life and preventing further cerebrovascular incidents. Orders: Orders ECG 7 day holter monitor Today I63.9 - Cerebral infarction, unspecified Coding Level of Care Code New Pt Level 5 (05310) Diagnoses Multiple cerebral infarctions I63.9 Moderate vascular dementia without behavioral disturbance, psychotic disturbance, mood disturbance, or anxiety F01.B0 Dementia severity: moderate Dementia behavioral or psychological symptom: without behavioral, psychotic, or mood disturbance or anxiety
--- OUTSIDE RECORDS SUMMARY | 2025-08-30 15:59 | XMS_ITS | Data Portability ---
Author Organization [facility], Main Office Address [address], [address] [place] [address] Care Team Providers Care Dump Grounds Checker Name Role Phone ABDULAZIZ JEREZ - 2ND FLOOR OTHER Assessment Encounter Date Assessment Date Assessment LastModified by Organization Details LastModified Time 01/20/2025 01/20/2025 greater than >30 minutes spent with pt, assessment, planning, scripts and documentation [email or web address] Not available 01/20/2025 11:30:43 Plan of Treatment Reminders Order Date Submit Date Provider Last Modified By Organization Details Last Modified Time Details Appointments None record ed. Lab None record ed. Referral None record ed. Procedures None record ed. Surgeries None record ed. Imaging None record ed. Medication Orders None record ed. Patient TargetsNo targets recorded. Patient InstructionsNo instructions recorded. Reason for Referral None Reported. Problems Name Problem SNOMED Code Status Onset Date Resolution Date Notes Provider Name and Address Organization Details Recorded Time Right sided cerebral hemisphere cerebrovascula r accident 790759642 Active 2023 PAUL Jack [address], [address], [place], [address], [facility] 4 16:09:07 Harmful pattern of use of alcohol 07444298 Active 2023 PAUL Jack [address], [address], [place], [address], [facility] [employer] 4 16:12:41 Essential hypertension 82037357 Active 2023 Latonya LaureanoHANNY kerrP [address], [address], [place], [address], [facility] [employer] 4 16:12:51 Nicotine dependence 60562441 Active 2023 PAUL Jack [address], [address], [place], [address], [facility] 4 16:13:24 Hyperlipidemia 29015457 Active 2023 PAUL Jack [address], [address], [place], [address], [facility] 4 16:39:55 Chronic constipation 197485370 Active 2023 PAUL Jack [address], [address], [place], [address], [facility] 4 16:40:09 At increased risk for falls 808063922 Active 2023 PAUL Jack [address], [address], [place], [address], [facility] 4 16:47:48 Minimal cognitive impairment 645121555 Active 2023 Yesenia Razo MD [address] [facility], [address], [place], [address], [facility] 4 21:50:33 Problem Notes None recorded. Procedures Surgical History Date Name Laterality Status Provider Name and Address Organization Details Recorded Time placement of stent in cardiac conduit completed PAUL Jack [address], [address], [place], [address], [facility] 10/15/2024 16:53:32 Imaging Results None recorded. Procedure Notes None recorded. Medical Equipment None Reported. Allergies No known drug allergies Vitals Date Recorded Body height Heart rate Respiratory rate Body temperature Oxygen saturation Oxygen saturation in Arterial blood by Pulse oximetry Systolic And Diastolic Provider Name and Address Organization Details Last Updated DateTime 5 166.37 cm 82 /min 18 /min 98 [degF] 95 % 95 % 132/70 mm[Hg] YENI JO NP [address], [place], [address], [facility] 5 16:37:40 Date Recorded Body height Heart rate Respiratory rate Body temperature Oxygen saturation Oxygen saturation in Arterial blood by Pulse oximetry Systolic And Diastolic Provider Name and Address Organization Details Last Updated DateTime 5 166.37 cm 77 /min 18 /min 98 [degF] 98 % 98 % 122/60 mm[Hg] YENI JO NP [address] [facility], [address], [place], [address], [facility] 5 10:54:09 Date Recorded Body height Body weight Heart rate Respiratory rate Body temperature Oxygen saturation Oxygen saturation in Arterial blood by Pulse oximetry Systolic And Diastolic Provider Name and Address Organization Details Last Updated DateTime 5 166.37 cm 44570.7 5 g 77 /min 18 /min 98 [degF] 96 % 96 % 122/60 mm[Hg] Mary Bettencourt NP [address] [facility], [address], [place], [address], [facility] 5 17:53:42 Date Recorded Body height Body mass index (BMI) Body weight Heart rate Respiratory rate Body temperature Oxygen saturation Oxygen saturation in Arterial blood by Pulse oximetry Systolic And Diastolic Provider Name and Address Organization Details Last Updated DateTime 5 166.37 cm 22.6 kg/m2 13065.7 5 g 81 /min 18 /min 98.2 [degF] 96 % 96 % 124/56 mm[Hg] Mary Bettencourt NP [address] [facility], [address], [place], [address], [facility] 5 15:52:29 Date Recorded Body height Body mass index (BMI) Body weight Heart rate Respiratory rate Body temperature Oxygen saturation Oxygen saturation in Arterial blood by Pulse oximetry Systolic And Diastolic Provider Name and Address Organization Details Last Updated DateTime 5 166.37 cm 22.6 kg/m2 57836.7 5 g 81 /min 18 /min 98.2 [degF] 96 % 96 % 124/56 mm[Hg] Mary Bettencourt NP [address] [facility], [address], [place], [address], [facility] 5 11:15:21 Social History Question Answer Notes LastModified by Organizat ion Details LastModified Time Tobacco Smoking Status Current Every Day Smoker he says he smokes more when he's drinking, less when he's not. Yesenia Razo MD [address], [address], [place], [address], [facility] 10/18/2024 21:47:16 Do You Have An Advance Directive? Yes Information not available 10/15/2024 How Many Years Have You Consumed Alcohol? 50 Information not available 10/15/2024 What Is Your Level Of Caffeine Consumption? Moderate Information not available 10/15/2024 What Is Your Code Status? Full Code Information not available 10/15/2024 Are You Following A Fluid Restriction Diet? No Information not available 10/15/2024 Where Do You Live? Apartment Information not available 10/18/2024 Legal Guardian? No Informati on not available 10/15/2024 Are You Following A Low Salt Diet? Yes Information not available 10/15/2024 Do You Have A Medical Power Of Striper Machine? Yes Has HCP [email or web address] Information not available 10/18/2024 What Was The Date Of Your Most Recent Tobacco Screening? 10/18/2024 Information not available 10/18/2024 Do You Have An Out Of Hospital DNR? No Information not available 10/18/2024 Have You Ever Been Counseled For Unhealthy Alcohol Use? Yes Information not available 10/15/2024 What Is Your Relationship Status? Single Sig. Other, But They Don't Live Together Information not available 10/18/2024 How Much Tobacco Do You Smoke? 0.5 PPD Information not available 10/15/2024 Has Tobacco Cessation Counseling Been Provided? Yes Information not available 10/15/2024 On What Date Was Tobacco Cessation Counseling Provided? 10/18/2024 He Says He'll Quit When God Tells Him To Information not available 10/18/2024 How Many Years Have You Smoked Tobacco? 50 Information not available 10/15/2024 Do You Have Any Dietary Restrictions? Yes Information not available 10/15/2024 How Many Days In The Past Year Have You Consumed 5 Or More Drinks? 365 Information not available 10/15/2024 Sex: Unknown Functional Status Question Answer Note LastModified by Organizat ion Details LastModified Time How many times per week do you consume alcohol? 5-7 times per week 3-5 beers daily, he says he drinks as much as he can afford. Information not available 10/18/2024 Do you use any illicit or recreational drugs? No Information not available 10/15/2024 Do you or have you ever used any other forms of tobacco or nicotine? No Information not available 10/15/2024 What is your level of alcohol consumption? Heavy Information not available 10/15/2024 Mental Status Question Answer Note LastModified by Organization D etails LastModified Time Do you feel stressed (tense, restless, nervous, or anxious, or unable to sleep at night)? [id number] Information not available 10/15/2024 Family History Nothing Reported Notes:n/c Medical History No medical history recorded. Past Encounters Encounter ID Performer Location Encounter Start Date Encounter Closed Date Diagnosis/Indication Diagnosis SNOMED-CT Code Diagnosis ICD10 Code Diagnosis IMO Codes Diagnosis Note [id number] ANNIE L[address] PA-C [address] [address] 10/15/2024 15:54:03 10/18/2024 10:22:43 Right sided cerebral hemisphere cerebrovascular accident 636260523 I63.421 PT, OT and speech. clopidogre l 75 mg daily. Aspirin 81 mg daily Supportive care, Hyperlipidemia 00837274 E78.49 Atorvastat in 80 mg daily Essential hypertension 51360596 I10 Lisinopril 2.5 mg daily. Monitor labs and VSS Chronic constipation 236 937311 K59.09 Miralax 17 gms in liquid daily. Colace 100 mg BID senna 17.2 mg qhs prn Harmful pa ttern of use of alcohol 39101665 F10.10 supportive care. Naltrexone 50 mg daily. Nicotine dependence 5629 4008 F17.210 consider nicotine patch prn. At [facility] ed risk for falls 886958385 Z91.81 PT and OT. Fall precaution s in place. [id number] Yesenia Razo MD [address] [address] 10/18/2024 18:11:41 10/19/2024 08:47:56 Right sided cerebral hemisphere cerebrovascular accident 074435699 I63.421 Recovering slowly.Con tinue clopidogre l 75 mg qd, ASA 81 mg qd and atorvastat in 80 mg qd.Needs PT/OT for strengthen ing, balance, gait training, safety and function.C dawoodinue fall precaution s.Monitor for safety. Essential hypertension 76669090 I10 BP in good control since here.Audie nue lisinopril 2.5 mg qd.Monitor BP and labs. Chronic constipation 236 953949 K59.09 Continue bowel meds as ordered.Mo nitor bowel function. Harmful pa ttern of use of alcohol 88713925 F10.10 Continue naltrexone 50 mg qd.Contine u to encourage abstinence . Nicotine dependence 5629 4008 F17.210 Continue nicotine patch 7 mg qd.Encoura ge cessation. At [facility] ed risk for falls 422445538 Z91.81 PT/OT as above.Safe ty measures in place. Minimal co gnitive impairment 561076277 R41.89 Mildly impaired, but able to make his own decisions. Monitor and provide supportive care. [id number] [facility] [address] 10/21/2024 13:49:08 10/24/2024 10:32:20 Right sided cerebral hemisphere cerebrovascular accident 512538864 I63.421 Recovering slowly. remains max assist due to left sided weaknessCo ntinueclop idogrel 75 mg qd, ASA 81 mg qd and atorvastat in 80 mg qd.Needs PT/OT for strengthen ing, balance, gait training, safety and function.C ontinue fall precaution s.Monitor for safety. Essential hypertension 32766999 I10 BP in good control since here.Audie nuelisinop ril 2.5 mg qd.Monitor BP and labs. Chronic constipation 236 769385 K59.09 Continue bowel meds as ordered.Mo nitor bowel function. Harmful pa ttern of use of alcohol 34442356 F10.10 Continuena ltrexone 50 mg qd.continu e to encourage abstinence . advised nips of etoh should not be brought in Nicotine dependence 5629 4008 F17.210 Continueni cotine patch 7 mg qd.Encoura ge cessation. At [facility] ed risk for falls 692556860 Z91.81 PT/OT as above.supp ortive carewalker with max assistance Safety measures in place. Minimal co gnitive impairment 963777033 R41.89 Mildly impaired, but able to make his own decisions. Monitor and provide supportive care. 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 3408589829 1955238 L89.152 pt with pressure denuded area to right buttockvit c 500 mg qd to help with healing at requesttri ad paste bid and prnpressur e relief to coccyx area turn and reposition cushion to chairwound team to follow [id number] Yesenia Razo MD [address] [address] 10/25/2024 17:28:16 04/26/2025 15:40:30 Right sided cerebral hemisphere cerebrovascular accident 956819456 I63.421 Continues to recover slowly.Con tinue clopidogre l 75 mg qd, ASA 81 mg qd and atorvastat in 80 mg qd.Continu e PT/OT for strengthen ing, balance, gait training, safety and function.C ontinue fall precaution s.Monitor for safety.[facility] lear if pt will be able to manage living alone anymore. Essential hypertension 09320237 I10 BP not in [facility] since 10/16Conti nue lisinopril 2.5 mg qd.Monitor BP and labs.BP ordered for daily Chronic constipation 236 755143 K59.09 Continue bowel meds as ordered.Mo nitor bowel function. Harmful pa ttern of use of alcohol 88528670 F10.10 Continue naltrexone 50 mg qd.It sounds like SO is an enabler, wanting to bring him EtOH while here.Audie nue to encourage abstinence . Nicotine dependence 5629 4008 F17.210 Nicotine patch d/c'd as he wants to continue to smoke.Cont inue to encourage cessation. At [facility] risk for falls 342209102 Z91.81 PT/OT as above.Safe ty measures in place. Minimal co gnitive impairment 603136990 R41.89 Mildly impaired, but able to make his own decisions. Monitor and provide supportive care. 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 Pain in left foot 590469 7410 54875 M79.672 Continue elevation and diclofenac gel 1% topically to left foot bid and TID prn for painMonito r [id number] Mary Bettencourt NP [address] [address] [place] [address] 11/03/2024 09:12:32 11/04/2024 11:27:14 Right sided cerebral hemisphere cerebrovascular accident 797890836 I63.421 Continues to recover slowly but left sided weakness seems to be improving from 10/15, still max 2 assistCont inueclopid ogrel 75 mg qd, ASA 81 mg qd and atorvastat in 80 mg qd.Continu e PT/OT for strengthen ing, balance, gait training, safety and function.C ontinue fall precaution s.Monitor for safety.[facility] lear if pt will be able to manage living alone anymore. Essential hypertension 19680719 I10 BP stable 126/72 on 5Contin uelisinopr il 2.5 mg qd.Monitor BP and labs.BP ordered for daily Chronic constipation 236 180311 K59.09 Continue bowel meds as ordered.Mo mike bowel function. Harmful pa ttern of use of alcohol 59119984 F10.10 Continuena ltrexone 50 mg qd.reitera te with SO/ no etoh can be brought in, she requires frequent reminders and encouragem ent for good careContin ue to encourage abstinence . Nicotine dependence 5629 4008 F17.210 Nicotine patch d/c'd as he wants to continue to smoke.Cont inue to encourage cessation. currently smoking At [facility] risk for falls 824541777 Z91.81 PT/OT as above.Safe ty measures in place. Minimal co gnitive impairment 778473575 R41.89 Mildly impaired, but able to make his own decisions. Monitor and provide supportive care. Pressure i njury of coccygeal region of back stage II 8167126821 6724872 L89.152 not seen todayConti nue wound care as ordered.Mo nitor for healing. Pain in left foot 710171 6147 30431 M79.672 Continue elevation and diclofenac gel 1% topically to left foot bid and TID prn for painimprov ing and no complaints todayMonit or Inter[employer] 37892717 L30. 4 with small closed red area to left inner thighchang e briefs frequently antifungal cream bid and prnhydroco rtisone cream 1% bid and prn itchingmon itor for resolution , very mild [id number] YENI JO NP [address] [address] 11/10/2024 11:47:06 11/11/2024 14:31:03 Right sided cerebral hemisphere cerebrovascular accident 224069870 I63.421 Continues to recover slowly, left sided weakness seems to be improvingC ontinue clopidogre l 75 mg qd, ASA 81 mg qd and atorvastat in 80 mg qd.Continu e PT/OT for strengthen ing, balance, gait training, safety and function.C ontinue fall precaution s.Monitor for safety.[facility] lear if pt will be able to manage living alone anymore. At [facility] risk for falls 722830617 Z91.81 PT/OT as above.Safe ty measures in place. Intertrigo 44179802 L30. 4 with small closed red area to left inner thighchang e briefs frequently antifungal cream bid and prnhydroco rtisone cream 1% bid and prn itchingmon itor for resolution , very mild Minimal co gnitive impairment 746179159 R41.89 Mildly impaired, but able to make his own decisions. Monitor and provide supportive care. Essential hypertension 14653093 I10 Continue lisinopril 2.5 mg qd.Monitor BP and labs. Chronic constipation 236 879155 K59.09 Continue bowel meds as ordered.Mo mike bowel function. Pressure i njury of coccygeal region of back stage II 8665561064 3470237 L89.152 Continue wound care as ordered, pressure relief, nutritionR efer to Wound PA-C in house for eval and tx.Monitor for healing. Pain in left foot 640559 5914 28120 M79.672 Continue elevation and diclofenac gel 1% topically to left foot bid and TID prn for painimprov ing and no complaints todayMonit or Harmful pa ttern of use of alcohol 03691121 F10.10 Continuena ltrexone 50 mg qd.jocy campa with SO/ no etoh can be brought in, she requires frequent reminders and encouragem ent for good careContin ue to encourage abstinence . Nicotine dependence 5629 4008 F17.210 Nicotine patch d/c'd as he wants to continue to smoke.Cont inue to encourage cessation. currently smoking Depressive disorder 6720 9007 F32.A Seen by Psych PA-C -Remeron 7.5 mg qs added to helpw with mood, sleep, and appetite. [id number] Mary Bettencourt NP [facility] [address] 11/17/2024 15:35:25 11/17/2024 17:58:17 Right sided cerebral hemisphere cerebrovascular accident 148856041 I63.421 Continues to recover slowly, left sided weakness seems to be improving with therapyCon tinueclopi dogrel 75 mg qd, ASA 81 mg qd and atorvastat in 80 mg qd.PT/OT for strengthen ing, balance, gait training, safety and function.C ontinue fall precaution s.Monitor for safety.[facility] lear if pt will be able to manage living alone anymore. At [facility] risk for falls 904699414 Z91.81 PT/OT as above.Safe ty measures in place. Intertrigo 05400352 L30. 4 resolvedwi th small closed red area to left inner thighchang e briefs frequently antifungal cream bid and prnhydroco rtisone cream 1% bid and prn itchingmon itor for resolution , very mild Minimal co gnitive impairment 735151373 R41.89 Mildly impaired, but able to make his own decisions. Monitor and provide supportive care. Essential hypertension 05099113 I10 Continueli sinopril 2.5 mg qd.Monitor BP and labs. Chronic constipation 236 095615 K59.09 Continue bowel meds as ordered.Mo nitor bowel function. 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 Pain in left foot 351057 8925 50555 M79.672 resolvedCo ntinue elevation and diclofenac gel 1% topically to left foot bid and TID prn for painimprov ing and no complaints todayMonit or Harmful pa ttern of use of alcohol 94542302 F10.10 Continuena ltrexone 50 mg qd.jocy te with SO/ no etoh can be brought in, she requires frequent reminders and encouragem ent for good careContin ue to encourage abstinence . Nicotine dependence 5629 4008 F17.210 Nicotine patch d/c'd as he wants to continue to smoke.Cont inue to encourage cessation. currently smoking Depressive disorder 4888 9007 F32.A contRemero n 7.5 mg qs added to help with mood, sleep, and appetite last weekmonito r weights. [id number] Mary Bettencourt NP [facility] [address] [address] 11/18/2024 10:38:03 11/21/2024 14:25:49 Falls 104363350 R29.6 vitals stable and no injuries noted from fall 11/18PT/OT as above.Safe ty measures in place.pt aware of need to call for help to transfermo nitor [id number] Mayr Bettencourt NP [facility] [address] 12/09/2024 12:22:30 12/13/2024 09:29:41 Falls 498944512 R29.6 vitals stable and no injuries noted from fall 11/18, no falls sincePT/OT as above.Safe ty measures in place.pt aware of need to call for help to transfermo nitor Right side d cerebral hemisphere cerebrovascular accident 293463813 I63.421 Continues to recover slowly, left sided weakness seems to be improving with therapyCon tinueclopi dogrel 75 mg qd, ASA 81 mg qd and atorvastat in 80 mg qd.PT/OT for strengthen ing, balance, gait training, safety and function.C ontinue fall precaution s.Monitor for safety.lik brenton pt will not be able to manage living alone anymore at this timehe is hoping his /sig other with help him At [facility] risk for falls 772879155 Z91.81 PT/OT as above.Safe ty measures in place. Minimal co gnitive impairment 759465989 R41.89 Mildly impaired, but able to make his own decisions. Monitor and provide supportive care.seems to overestima te his abilities at this time Essential hypertension 32643277 I10 bp stableCont inuelisino pril 2.5 mg qd.Monitor BP and labs. Harmful pa ttern of use of alcohol 51571476 F10.10 Continuena ltrexone 50 mg qd.reitera te with SO/ no etoh can be brought in, she requires frequent reminders and encouragem ent for good careContin ue to encourage abstinence . Nicotine dependence 5629 4008 F17.210 continues to smoke.Cont inue to encourage cessation. currently smoking Depressive disorder 4960 3287 F32.A contRemero n 7.5 mg qhsmonitor weights appetitie and sleep [id number] Mary Bettencourt, POLO [facility] [address] [address] 12/15/2024 13:36:22 12/16/2024 15:22:16 Right sided cerebral hemisphere cerebrovascular accident 050065876 I63.421 Continues to recover from CVAwith left sided weakness improving with therapy and making gainsConti nueclopido grel 75 mg qdASA 81 mg qdatorvast atin 80 mg qd.PT/OT for strengthen ing, balance, gait training, safety and function.C ontinue fall precaution s.Monitor for safety.anjeilca farris pt will not be able to manage living alone anymore at this timehe is hoping his /sig other with help him Falls 327934014 R29.6 PT/OT as above.Safe ty measures in place.pt aware of need to call for help to transfermo nitor Minimal co gnitive impairment 920368148 R41.89 Mildly impaired, but able to make his own decisions. Monitor and provide supportive care.seems to overestima te his abilities at this time Essential hypertension 83930255 I10 bp stableCont inuelisino pril 2.5 mg qd.Monitor BP and labs. Depressive disorder 3834 5137 F32.A contRemero n 7.5 mg qhsmonitor weights appetite and sleep Asthenia 17645183 R53.1 with notable left sided weakness from CVAPT OT for strength, safety, gait training, balance, rom, etc...praful rowe for progress [id number] Waldo Soler MD [facility] [address] [address] 12/21/2024 10:33:46 12/22/2024 11:04:28 Right sided cerebral hemisphere cerebrovascular accident 277806187 I63.421 slow improvemen t in left sided deficit post CVAcontinu e with therapymon itor fall riskgoal is home with servicesmo nitor need for increased services in community vs need to transition to LTClipitor 80 mg qdasa 81 mg qdplavix 75 mg qdcontinue d Essential hypertension 73884723 I10 lisinopril 2.5 mg qdmonitor bp and need to titrate Chronic constipation 236 005800 K59.09 continued on bowel medsmonito r for effect Minimal co gnitive impairment 440967989 R41.89 carrying dxappears stable at baselinemo nitor level of insight [id number] Mary Bettencourt NP [facility] [address] [address] 12/30/2024 09:32:33 01/02/2025 15:11:04 Right sided cerebral hemisphere cerebrovascular accident 352025093 I63.421 slow improvemen t in left sided deficit post CVAcontinu e with therapymon itor fall riskgoal is home with servicesSO reports she will work with mental health social worker to set up pcp-report s she would like help (note she was working on this over 1.5 months ago and still hasnt called)lip itor 80 mg qdasa 81 mg qdplavix 75 mg qdmonitor need for increased services in community vs need to transition to LTC Essential hypertension 26028503 I10 lisinopril 2.5 mg qdmonitor bp and need to titrate Chronic constipation 236 819210 K59.09 continued on bowel medsmonito r for effect Minimal co gnitive impairment 685296792 R41.89 carrying dxappears stable at baselinemo nitor level of insight Asthenia [id number] R53.1 with notable left sided weakness from CVAPT OT for strength, safety, gait training, balance, rom, etc...praful rowe for progress [id number] YENI JO NP [facility] [address] [address] 01/04/2025 16:36:57 01/06/2025 13:22:06 Right sided cerebral hemisphere cerebrovascular accident I63.421 slow improvemen t in left sided deficit post CVAcontinu e with therapymon itor fall riskgoal is home with servicesSO reports she will work with mental health social worker to set up pcp-report s she would like help (note she was working on this over 1.5 months ago and still hasnt called)lip itor 80 mg qdasa 81 mg qdplavix 75 mg qdmonitor need for increased services in community vs need to transition to LTC Essential hypertension 00051900 I10 VSSContinu e lisinopril 2.5 mg qdmonitor bp and need to titrate Chronic constipation 236 838637 K59.09 continued bowel medsmonito r GI status Minimal co gnitive impairment [id number] R41.89 carrying dxappears stable at baselinemo nitor level of insight Lipoma of skin 393007136 D17.30 posterior left earlobe - 1 cm, raised, soft, non tender.Leah pecting lipoma/clover ign cyst.Famil y reassured, but will continue to monitor for any change and refer to Derm if concerns. [id number] YENI JO NP [facility] [address] [address] 01/11/2025 09:20:41 01/12/2025 13:47:19 Lipoma of skin [id number] D17.30 posterior left earlobe - 1 cm, raised, soft, non tender.Leah pecting lipoma/clover ign cyst.Famil y reassured, but will continue to monitor for any change and refer to Derm if concerns. Right side d cerebral hemisphere cerebrovascular accident [id number] I63.421 slow improvemen t in left sided deficit post CVAcontinu e with therapymon itor fall riskgoal is home with services, /SO getting things in place in anticipati on for discharge. Continue:l ipitor 80 mg qdasa 81 mg qdplavix 75 mg qdmonitor need for increased services in community vs need to transition to LTC Essential hypertension 32590305 I10 VSSContinu e lisinopril 2.5 mg qdmonitor bp and need to titrateLas t K 5.2, repeat BMP Chronic constipation 236 128867 K59.09 continued bowel medsmonito r GI status Minimal co gnitive impairment 959110267 R41.89 carrying dxappears stable at baselinemo nitor level of insight [id number] Mary Bettencourt NP [facility] [address] [address] 01/16/2025 16:39:58 01/17/2025 15:39:01 Right sided cerebral hemisphere cerebrovascular accident [id number] I63.421 slow improvemen t in left sided deficit post CVAcontinu e with therapymon itor fall riskgoal is home with services, /SO getting things in place in anticipati on for discharge. Continue:l ipitor 80 mg qdasa 81 mg qdplavix 75 mg qd01/16 scripts written for wheelchair , walker, and bed for home01/16 social work setting up services and pcp01/16 therapy to assess if he is able to transfer to car with one assistmoni tor need for increased services in community vs need to transition to LTC At [facility] risk for falls [id number] Z91.81 PT/OT as above.Safe ty measures in place. [id number] Mary Bettencourt NP [facility] [address] [address] 01/19/2025 15:51:47 01/20/2025 16:20:47 Lipoma of skin 697792998 D17.30 pt with likely simple cyst vs lipoma to left posterior eararea drained with white thick exudate and serosangen ous drainage.w neri with ns, pat dry, bacitracin and clean dry dsg dailydue to good amount of drainge will cover with abx for likely infection2 bactrim DS po bid x 7 daysprobio tic 1 tab po bid x 10 days [id number] Mary Bettencourt NP [facility] [address] [address] 01/20/2025 11:14:42 01/24/2025 09:39:45 Lipoma of skin 987627761 D17.30 pt with likely simple cyst vs lipoma to left posterior ear:due to good amount of white/puru lent drainage will cover with abx for likely infection area drained with white thick exudate and serosangen ous drainage.c ontwash with ns, pat dry, bacitracin and clean dry dsg daily until resovled2 bactrim DS po bid x 7 days totalprobi otic 1 tab po bid x 10 days totalfu with pcp outpt Right side d cerebral hemisphere cerebrovascular accident [id number] I63.421 slow improvemen t in left sided deficit post CVAcontinu e with therapy prnmonitor fall riskgoal is home with services, /SO getting things in placeConti nue:lipito r 80 mg qdasa 81 mg qdplavix 75 mg qd01/16 scripts written for wheelchair , walker, and bed for homesocial work setting up services and pcp outptfu with pcp outpt Essential hypertension 97121243 I10 stableCont inue lisinopril 2.5 mg qdmonitor bp and need to titratefu with pcp outpt Chronic constipation 236 960981 K59.09 continued bowel medsmonito r GI status outpt with pcp Minimal co gnitive impairment 031275502 R41.89 carrying dx, able to voice concerns appropriat elyappears stable at baselinemo nitor level of insight outpt with pcp Asthenia 71336566 R53.1 with notable left sided weakness from [facility] OT for strength, safety, gait training, balance, rom, etc...prn outptmonit or for progress outpt with pcp Falls 799264133 R29.6 PT/OT as above.Safe ty measures in place.pt aware of need to call for help to transfermo nitor Depressive disorder 3548 9007 F32.A contRemero n 7.5 mg qhsmonitor outpt with pcp 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 currently smokingref uses nrt Health Concerns Section Related Observation LastModified by Organization Detai ls LastModified Time None Recorded Concern Status LastModified by Organization Details LastModified Time None Recorded Advance Directives Directive Y: Payers Insurance Date Sequence Insurance Name Policy Number Policy Gr Covered Member ID Gr Member ID Guarantor Name 01/04/2025 1 [place] [employer] Klaus Zamora [id number] Klaus Zamora 01/04/2025 2 [place] [facility] Klaus Zamora [id number] Klaus Zamora Notes Date Note Type Note Provider Name and Address Organization Details Recorded Time 01/04/2025 text/html Klaus is seen today for an acute visit. He is a 74 yo male here for rehab s/p acute R CVA with left sided deficit and etoh abuse. [facility] stable. Working with rehab, slow progress. Still requires assist with ADLs.Family concerned about a bump just noticed on his left ear, asked for assessment. Upon exam, Klaus is in bed. alert, NAD, in good spirits.Per MAPPING SPECIALIST there are no concerns or issues presently. Left ear examined, small 1 cm raised soft spongy cyst noted on posterior earlobe against the neck. Nl. tone and temp, non tender. No redness or heat. Discussed with family, reassured we just need to monitor, most likely a lipoma/benign cyst. 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 Full code YENI JO NP [address] [facility], [address], [place], [address], [facility] 01/04/2025 16:56:32 01/11/2025 text/html Klaus is seen today for a routine, 90 day visit. He is a 74 yo male here for rehab s/p acute R CVA with left sided deficit and etoh abuse. VS remaining stable.Labs stable 12/19, no new labs. Working with rehab, making slow progress. Still requires assist with ADLs. /SO working on getting getting things in place prior to d/c home. Upon exam, Klaus is in bed, alert, feels good, asking when he can go home. He denies any complaints at this time.Family concerned about a bump behind his left ear last week, no change upon exam today.Per nsg., no concerns. 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 Full code YENI JO, SENIOR STATISTICIAN [address] [facility], [address], [place], [address], [facility] [employer] 01/11/2025 11:03:27 01/16/2025 text/html Klaus is seen today for an acute rounding visit. 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 Klaus continues to work with rehab, making slow progress. Still requires assist with ADLs, however /SO planning on taking him home soon and requesting equipment to take him to her house. Coordinated care with mental health social worker and script for bed, wheelchair, and walker written and given today. gas utility worker trying to find a pcp for patient. SO plans on getting tub/chair from [facility]. On exam, pt is in bed, alert and NAD. He is asking when he can go home and states he is ready. He denies any complaints at this time. No new concerns from nursing. Full code Mary Bettencourt, POLO [address] [facility], [address], [place], [address], [facility] [employer] 01/16/2025 18:00:25 01/19/2025 text/html Klaus is seen today for an acute visit. 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 Klaus continues to work with rehab, making slow progress. Still requires assist with ADLs, however /SO planning on taking him home soon and requesting equipment to take him to her house. He is seen for a cyst in the back of his left ear. He states it started 2 weeks prior and he gets them from time to time. No fever, chills, and vitals stable. Left posterior ear with cyst no open and seemed it popped. Cyst is draining good amount of white thick drainage and blood. Cyst expelled as much as possible, cleaned with ns, pat dry, bactracin applied and dsg for drainage applied. Due to drainage will rec abx. Will start on bactrim for 7 days to ensure infection is resolved. of note: Coordinated care with mental health social worker and script for bed, wheelchair, and walker written for on 01/16. gas utility worker trying to find a pcp for patient. SO [facility] On exam, pt is in bed, alert and NAD. Full code Mary Bettencourt NP [address] [facility], [address], [place], [address], [employer] 01/19/2025 16:10:07 01/20/2025 text/html Klaus is seen today for a discharge visit. 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 While here at [facility]:Klaus continues to work with rehab, making slow progress. Still requires assist with ADLs, however /SO planning on taking him home and equipment scripts written for earlier this week to take him to her house on the first floor. He was seen for a cyst in the back of his left ear that popped on 01/19. Additional white/purulent exudate removed and started on bactrim ds for 7 days. He was started on remeron for appetite and mood. Coordinated care with mental health social worker and script for bed, wheelchair, and walker written for on 01/16. gas utility worker trying to find a pcp for patient. SO plans on getting tub[facility]chair from senior center. Overall, he has done well with therapy and mostly uneventful stay here. Multiple conversations with SO/patient had while here about need to get pcp. gas utility worker has been helping with this. On exam, pt is in bed, alert and NAD. He remains with left sided weakness, however improved since here with therapy. He remains with need for assistance with adls at home. Full code Mary Bettencourt NP [address] [facility], [address], [place], [address], [facility] 01/20/2025 11:39:51
--- NOTE | 2025-09-05 09:48 | A.OFFVIS_ITS ---
Intake Visit Reasons: Cerebral Infarction Allergies No Known Allergies Allergy (Verified 08/30/25 14:06) [facility] Medical History Acute cerebral infarction Surgical History History of ear surgery History of heart artery stent History of appendectomy Social History Household Members: None Housing: Apartment Do you presently have visiting nurse or other home services: Yes (Has partner who helps provide care for and to him) Alcohol intake: current Alcohol intake frequency: a few times a week Alcohol type: beer Patient Tobacco Use Status: Former Tobacco user Tobacco use type: Cigarette Cigarette Packs Per Day: 0.5 Cigarettes Per Day: 5 e-Cigarette/Vaping Use: Never Used Second Hand Smoke Exposure: Yes service: No Current occupational status: retired Cognitive needs: Yes (Wheelchair) Hearing needs: No Vision needs: No Assessment & Plan Assessment & Plan (1) Multiple cerebral infarctions: Code(s): I63.9 - Cerebral infarction, unspecified Category: Medical (2) Vascular dementia: Code(s): F01.50 - Vascular dementia, unspecified severity, without behavioral disturbance, psychotic disturbance, mood disturbance, and anxiety Category: Medical Qualifiers: Dementia behavioral or psychological symptom: without behavioral, psychotic, or mood disturbance or anxiety Dementia severity: moderate Qualified Code(s): F01.B0 - Vascular dementia, moderate, without behavioral disturbance, psychotic disturbance, mood disturbance, and anxiety Orders: Orders ECG 7 day holter monitor 08/30/25 I63.9 - Cerebral infarction, unspecified Coding Diagnoses Multiple cerebral infarctions I63.9 Moderate vascular dementia without behavioral disturbance, psychotic disturbance, mood disturbance, or anxiety F01.B0 Dementia behavioral or psychological symptom: without behavioral, psychotic, or mood disturbance or anxiety Dementia severity: moderate
== END 2025-08-30 15:42 | disposition home or self-care (01) ==
LOC: HO.HSM 14:50
PROVIDERS: Visit Provider Psychiatry & Neurology Neurology
DX: I63.449 Cerebral infarction due to embolism of unspecified cerebellar artery (principal); F01.B0 Vascular dementia, moderate, without behavioral disturbance, psychotic disturbance, mood disturbance, and anxiety
CPT/HCPCS: 99203

== ENCOUNTER → 2025-10-12 12:31 | Outpatient (REF) | payer MEDICARE, MEDICAID, SELFPAY ==
--- OUTSIDE RECORDS SUMMARY | 2025-10-12 15:40 | XMS_ITS | Encounter Summary ---
Author Organization [facility] Address [address] [place] [address] Care Team Providers Care Extended Insurance Clerk Name Role Phone Waldo Soler MD Primary Care Provider [phone] Encounter Details Date Type Department Care Team (Late st Contact Info) Description 12/24/2024 Lab Requisition [facility] - Main Lab [address] [facility] [place] [address] Waldo Soler MD [address] [facility] [address] [place], [address] Hemiplegia and hemiparesis following cerebral infarction [...] V28) documented in this encounter Care Teams Extended Insurance Clerk Relationship Specialty Start Date End Date Waldo Soler MD [address] [facility] [address] [place], [address] PCP - General Family Medicine 10/17/24 documented as of this encounter
--- OUTSIDE RECORDS SUMMARY | 2025-10-12 15:40 | XMS_ITS | Encounter Summary ---
Author Organization [facility] Address [address] [place] [address] Care Team Providers Care Global Project Manager Name Role Phone Waldo Soler MD Primary Care Provider Encounter Details Date Type Department Care Team (Late st Contact Info) Description 12/02/2024 Lab Requisition [facility] - Main Lab [address] [place] [address] Waldo Soler MD [address] [place] [address] [address] [place], [address] Hemiplegia and hemiparesis following cerebral infarction [...] mmol/L LAB CHEMISTRY METHOD 12/05/2024 9:30 AM [facility] Potassium 4.8 3.5 - 5.5 mmol/L LAB CHEMISTRY METHOD 12/05/2024 9:30 AM [facility] Chloride 105 96 - 110 mmol/L LAB CHEMISTRY METHOD 12/05/2024 9:30 AM [facility] CO2 31 21 - 32 mmol/L LAB CHEMISTRY METHOD 12/05/2024 9:30 AM [facility] Anion Gap 3 3 - 11 LAB CHEMISTRY METHOD 12/05/2024 9:30 AM [facility] Glucose 70 70 - 100 mg/dL LAB CHEMISTRY METHOD 12/05/2024 9:30 AM [facility] BUN 9 5 - 25 mg/dL LAB CHEMISTRY METHOD 12/05/2024 9:30 AM [facility] Creatinine 1.09 0.70 - 1.30 mg/dL LAB CHEMISTRY METHOD 12/05/2024 9:30 AM [facility] eGFR 72 >=60 mL/min/1. 73m2 LAB CHEMISTRY METHOD 12/05/2024 9:30 AM [facility] Comment:Calculation based on the Chronic Kidney Disease Epidemiology Collaboration (CKD-EPI) equation refit without adjustment for race. BUN/Creatinine Ratio 8.3 LAB CHEMISTRY METHOD 12/05/2024 9:30 AM [facility] Calcium 8.6 8.5 - 10.5 mg/dL LAB CHEMISTRY METHOD 12/05/2024 9:30 AM [facility] AST (SGOT) 20 10 - 42 unit/L LAB CHEMISTRY METHOD 12/05/2024 9:30 AM [facility] ALT (SGPT) 33 10 - 60 unit/L LAB CHEMISTRY METHOD 12/05/2024 9:30 AM [facility] Alkaline Phosphatase 73 42 - 121 unit/L LAB CHEMISTRY METHOD 12/05/2024 9:30 AM [facility] Total Protein 6.5 6.0 - 8.0 g/dL LAB CHEMISTRY METHOD 12/05/2024 9:30 AM EST [facility] Albumin 3.2 3.2 - 5.0 g/dL LAB CHEMISTRY METHOD 12/05/2024 9:30 AM [facility] Total Bilirubin 0.5 0.0 - 1.4 mg/dL LAB CHEMISTRY METHOD 12/05/2024 9:30 AM [facility] Blood Venous blood specimen / Unknown Venipuncture / Unknown 12/05/2024 5:48 AM EST 12/05/2024 8:30 AM EST us Waldo Soler MD LAB BLOOD ORDERABLES Final Resul t [facility] [address] [place] [address], * (ABNORMAL) Complete blood count (12/05/2024 5:48 AM EST) WBC 5.6 4.8 - 10.8 K/mcL LAB HEMETOLOGY METHOD 12/05/2024 8:51 AM [facility] RBC 4.40(L) 4.50 - 5.50 M/mcL LAB HEMETOLOGY METHOD 12/05/2024 8:51 AM [facility] Hemoglobin 13.3(L) 13.5 - 17.5 g/dL LAB HEMETOLOGY METHOD 12/05/2024 8:51 AM [facility] Hematocrit 41.8(L) 42.0 - 54.0 % LAB HEMETOLOGY METHOD 12/05/2024 8:51 AM [facility] MCV 94.6 79.0 - 98.0 FL LAB HEMETOLOGY METHOD 12/05/2024 8:51 AM [facility] MCH 30.1 27.0 - 32.0 pcg LAB HEMETOLOGY METHOD 12/05/2024 8:51 AM EST [facility] MCHC 31.8(L) 32.0 - 37.0 g/dL LAB HEMETOLOGY METHOD 12/05/2024 8:51 AM [facility] RDW 12.5 11.0 - 15.0 % LAB HEMETOLOGY METHOD 12/05/2024 8:51 AM [facility] Platelets 235 130 - 400 K/mcL LAB HEMETOLOGY METHOD 12/05/2024 8:51 AM [facility] MPV 10.1 7.0 - 11.0 FL LAB HEMETOLOGY METHOD 12/05/2024 8:51 AM [facility] NRBC 0.0 <1.0 % LAB HEMETOLOGY METHOD 12/05/2024 8:51 AM [facility] NRBC Absolute 0.00 <0.10 K/mcL LAB HEMETOLOGY METHOD 12/05/2024 8:51 AM [facility] Blood Venous blood specimen / Unknown Venipuncture / Unknown 12/05/2024 5:48 AM EST 12/05/2024 8:30 AM EST us Waldo Soler MD LAB BLOOD ORDERABLES Final Resul t [facility] [address] [place] [address], documented in this encounter Visit Diagnoses Diagnosis Hemiplegia and hemiparesis following cerebral infarction affecting left non- dominant side (CMS/HCC V24, CMS/HCC V28) documented in this encounter Care Teams Global Project Manager Relationship Specialty Start Date End Date Waldo Soler MD [address] [place] [address], [address] PCP - General Family Medicine 10/17/24 documented as of this encounter
--- OUTSIDE RECORDS SUMMARY | 2025-10-12 15:40 | XMS_ITS | Encounter Summary ---
Author Organization [facility] Address [address] [place] [address] Care Team Providers Care Curve Saw Operator Name Role Phone Waldo Soler MD Primary Care Provider [phone] Encounter Details Date Type Department Care Team (Late st Contact Info) Description 01/21/2025 Lab Requisition [facility] - Main Lab [address] [facility] [place] [address] Waldo Soler MD [address] [facility] [address] [place], [address] Hemiplegia and hemiparesis following cerebral infarction [...] V28) documented in this encounter Care Teams Curve Saw Operator Relationship Specialty Start Date End Date Waldo Soler MD [address] [facility] [address] [place], [address] PCP - General Family Medicine 10/17/24 documented as of this encounter
--- OUTSIDE RECORDS SUMMARY | 2025-10-12 15:40 | XMS_ITS | Encounter Summary ---
Author Organization [facility] Address [address] [place] [address] Care Team Providers Care Coverstitch Binder Name Role Phone Waldo Soler MD Primary Care Provider [phone] Encounter Details Date Type Department Care Team (Late st Contact Info) Description 12/20/2024 Lab Requisition [facility] - Main Lab [address] [facility] [place] [address] Waldo Soler MD [address] [facility] [address] [place], [address] Hemiplegia and hemiparesis following cerebral infarction [...] V28) documented in this encounter Care Teams Coverstitch Binder Relationship Specialty Start Date End Date Waldo Soler MD [address] [facility] [address] [place], [address] PCP - General Family Medicine 10/17/24 documented as of this encounter
--- OUTSIDE RECORDS SUMMARY | 2025-10-12 15:40 | XMS_ITS | Encounter Summary ---
Author Organization [facility] Address [address] [place] [address] Care Team Providers Care Generator Mechanic Name Role Phone Waldo Soler MD Primary Care Provider [phone] Encounter Details Date Type Department Care Team (Late st Contact Info) Description 10/17/2024 Lab Requisition [facility] - Main Lab [address] [place] [address] Waldo Soler MD [address] [place] [address] [address] [place], [phone] Hemiplegia and hemiparesis following cerebral infarction [...] mmol/L LAB CHEMISTRY METHOD 10/17/2024 9:06 AM [facility] Potassium 4.5 3.5 - 5.5 mmol/L LAB CHEMISTRY METHOD 10/17/2024 9:06 AM [facility] Chloride 106 96 - 110 mmol/L LAB CHEMISTRY METHOD 10/17/2024 9:06 AM [facility] CO2 29 21 - 32 mmol/L LAB CHEMISTRY METHOD 10/17/2024 9:06 AM [facility] Anion Gap 5 3 - 11 LAB CHEMISTRY METHOD 10/17/2024 9:06 AM [facility] Glucose 70 70 - 100 mg/dL LAB CHEMISTRY METHOD 10/17/2024 9:06 AM [facility] BUN 25 5 - 25 mg/dL LAB CHEMISTRY METHOD 10/17/2024 9:06 AM [facility] Creatinine 1.10 0.70 - 1.30 mg/dL LAB CHEMISTRY METHOD 10/17/2024 9:06 AM [facility] eGFR 72 >=60 mL/min/1. 73m2 LAB CHEMISTRY METHOD 10/17/2024 9:06 AM [facility] Comment:Calculation based on the Chronic Kidney Disease Epidemiology Collaboration (CKD-EPI) equation refit without adjustment for race. BUN/Creatinine Ratio 22.7 LAB CHEMISTRY METHOD 10/17/2024 9:06 AM [facility] Calcium 9.3 8.5 - 10.5 mg/dL LAB CHEMISTRY METHOD 10/17/2024 9:06 AM [facility] AST (SGOT) 30 10 - 42 unit/L LAB CHEMISTRY METHOD 10/17/2024 9:06 AM [facility] ALT (SGPT) 35 10 - 60 unit/L LAB CHEMISTRY METHOD 10/17/2024 9:06 AM [facility] Alkaline Phosphatase 86 42 - 121 unit/L LAB CHEMISTRY METHOD 10/17/2024 9:06 AM [facility] Total Protein 7.1 6.0 - 8.0 g/dL LAB CHEMISTRY METHOD 10/17/2024 9:06 AM EST [facility] Albumin 3.6 3.2 - 5.0 g/dL LAB CHEMISTRY METHOD 10/17/2024 9:06 AM [facility] Total Bilirubin 0.6 0.0 - 1.4 mg/dL LAB CHEMISTRY METHOD 10/17/2024 9:06 AM [facility] Blood Venous blood specimen / Unknown Venipuncture / Unknown 10/17/2024 5:25 AM EST 10/17/2024 7:30 AM EST us Waldo Soler MD LAB BLOOD ORDERABLES Final Resul t [facility] [address] [place] [address], * Complete blood count (10/17/2024 5:25 AM EST) WBC 6.6 4.8 - 10.8 K/mcL LAB HEMETOLOGY METHOD 10/17/2024 8:16 AM [facility] RBC 4.90 4.50 - 5.50 M/mcL LAB HEMETOLOGY METHOD 10/17/2024 8:16 AM [facility] Hemoglobin 14.9 13.5 - 17.5 g/dL LAB HEMETOLOGY METHOD 10/17/2024 8:16 AM [facility] Hematocrit 46.5 42.0 - 54.0 % LAB HEMETOLOGY METHOD 10/17/2024 8:16 AM [facility] MCV 94.7 79.0 - 98.0 FL LAB HEMETOLOGY METHOD 10/17/2024 8:16 AM [facility] MCH 30.3 27.0 - 32.0 pcg LAB HEMETOLOGY METHOD 10/17/2024 8:16 AM [facility] MCHC 32.0 32.0 - 37.0 g/dL LAB HEMETOLOGY METHOD 10/17/2024 8:16 AM EST [facility] RDW 12.6 11.0 - 15.0 % LAB HEMETOLOGY METHOD 10/17/2024 8:16 AM [facility] Platelets 261 130 - 400 K/mcL LAB HEMETOLOGY METHOD 10/17/2024 8:16 AM EST [facility] MPV 10.4 7.0 - 11.0 FL LAB HEMETOLOGY METHOD 10/17/2024 8:16 AM EST [facility] NRBC 0.0 <1.0 % LAB HEMETOLOGY METHOD 10/17/2024 8:16 AM [facility] NRBC Absolute 0.00 <0.10 K/mcL LAB HEMETOLOGY METHOD 10/17/2024 8:16 AM [facility] Blood Venous blood specimen / Unknown Venipuncture / Unknown 10/17/2024 5:25 AM EST 10/17/2024 7:30 AM EST us Waldo Sloer MD LAB BLOOD ORDERABLES Final Resul t [facility] [address] [place] [address], documented in this encounter Visit Diagnoses Diagnosis Hemiplegia and hemiparesis following cerebral infarction affecting left non- dominant side (CMS/HCC V24, CMS/HCC V28) documented in this encounter Care Teams Generator Mechanic Relationship Specialty Start Date End Date Waldo Soler MD [address] [place] [address], [phone] PCP - General Family Medicine 10/17/24 documented as of this encounter
--- OUTSIDE RECORDS SUMMARY | 2025-10-12 15:40 | XMS_ITS | Encounter Summary ---
Author Organization [facility] Address [address] [place] [address] Care Team Providers Care Senior Chemical Engineer Name Role Phone Waldo Soler MD Primary Care Provider [phone] Encounter Details Date Type Department Care Team (Late st Contact Info) Description 01/06/2025 Lab Requisition [facility] - Main Lab [address] [facility] [place] [address] Waldo Soler MD [address] [facility] [address] [place], [phone] Hemiplegia and hemiparesis following cerebral infarction [...] V28) documented in this encounter Care Teams Senior Chemical Engineer Relationship Specialty Start Date End Date Waldo Soler MD [address] [facility] [address] [place], [phone] PCP - General Family Medicine 10/17/24 documented as of this encounter
--- OUTSIDE RECORDS SUMMARY | 2025-10-12 15:40 | XMS_ITS | Encounter Summary ---
Author Organization [facility] Address [address] [place] [address] Care Team Providers Care Dinkey Driver Name Role Phone Waldo Soler MD Primary Care Provider [phone] Encounter Details Date Type Department Care Team (Late st Contact Info) Description 11/11/2024 Lab Requisition [facility] - Main Lab [address] [place] [address] Waldo Soler MD [address] [place] [address] [address] [place], [phone] Hemiplegia and hemiparesis following cerebral infarction [...] mmol/L LAB CHEMISTRY METHOD 11/14/2024 1:08 PM [facility] Potassium 4.4 3.5 - 5.5 mmol/L LAB CHEMISTRY METHOD 11/14/2024 1:08 PM [facility] Chloride 102 96 - 110 mmol/L LAB CHEMISTRY METHOD 11/14/2024 1:08 PM [facility] CO2 29 21 - 32 mmol/L LAB CHEMISTRY METHOD 11/14/2024 1:08 PM [facility] Anion Gap 8 3 - 11 LAB CHEMISTRY METHOD 11/14/2024 1:08 PM [facility] Glucose 71 70 - 100 mg/dL LAB CHEMISTRY METHOD 11/14/2024 1:08 PM [facility] BUN 7 5 - 25 mg/dL LAB CHEMISTRY METHOD 11/14/2024 1:08 PM [facility] Creatinine 0.83 0.70 - 1.30 mg/dL LAB CHEMISTRY METHOD 11/14/2024 1:08 PM [facility] eGFR 93 >=60 mL/min/1. 73m2 LAB CHEMISTRY METHOD 11/14/2024 1:08 PM [facility] Comment:Calculation based on the Chronic Kidney Disease Epidemiology Collaboration (CKD-EPI) equation refit without adjustment for race. BUN/Creatinine Ratio 8.4 LAB CHEMISTRY METHOD 11/14/2024 1:08 PM [facility] Calcium 9.3 8.5 - 10.5 mg/dL LAB CHEMISTRY METHOD 11/14/2024 1:08 PM [facility] AST (SGOT) 27 10 - 42 unit/L LAB CHEMISTRY METHOD 11/14/2024 1:08 PM [facility] ALT (SGPT) 60 10 - 60 unit/L LAB CHEMISTRY METHOD 11/14/2024 1:08 PM [facility] Alkaline Phosphatase 80 42 - 121 unit/L LAB CHEMISTRY METHOD 11/14/2024 1:08 PM [facility] Total Protein 6.6 6.0 - 8.0 g/dL LAB CHEMISTRY METHOD 11/14/2024 1:08 PM EST [facility] Albumin 3.4 3.2 - 5.0 g/dL LAB CHEMISTRY METHOD 11/14/2024 1:08 PM [facility] Total Bilirubin 0.5 0.0 - 1.4 mg/dL LAB CHEMISTRY METHOD 11/14/2024 1:08 PM EST [facility] Blood Venous blood specimen / Unknown Venipuncture / Unknown 11/14/2024 5:40 AM EST 11/14/2024 10:23 AM EST us Waldo Soler MD LAB BLOOD ORDERABLES Final Resul t [facility] [address] [place] [address], * Complete blood count (11/14/2024 5:40 AM EST) WBC 6.2 4.8 - 10.8 K/mcL LAB HEMETOLOGY METHOD 11/14/2024 10:48 AM [facility] RBC 4.80 4.50 - 5.50 M/mcL LAB HEMETOLOGY METHOD 11/14/2024 10:48 AM [facility] Hemoglobin 14.7 13.5 - 17.5 g/dL LAB HEMETOLOGY METHOD 11/14/2024 10:48 AM [facility] Hematocrit 45.9 42.0 - 54.0 % LAB HEMETOLOGY METHOD 11/14/2024 10:48 AM [facility] MCV 94.8 79.0 - 98.0 FL LAB HEMETOLOGY METHOD 11/14/2024 10:48 AM [facility] MCH 30.4 27.0 - 32.0 pcg LAB HEMETOLOGY METHOD 11/14/2024 10:48 AM [facility] MCHC 32.0 32.0 - 37.0 g/dL LAB HEMETOLOGY METHOD 11/14/2024 10:48 AM EST [facility] RDW 12.6 11.0 - 15.0 % LAB HEMETOLOGY METHOD 11/14/2024 10:48 AM [facility] Platelets 251 130 - 400 K/mcL LAB HEMETOLOGY METHOD 11/14/2024 10:48 AM EST [facility] MPV 10.1 7.0 - 11.0 FL LAB HEMETOLOGY METHOD 11/14/2024 10:48 AM EST [facility] NRBC 0.0 <1.0 % LAB HEMETOLOGY METHOD 11/14/2024 10:48 AM [facility] NRBC Absolute 0.00 <0.10 K/mcL LAB HEMETOLOGY METHOD 11/14/2024 10:48 AM [facility] Blood Venous blood specimen / Unknown Venipuncture / Unknown 11/14/2024 5:40 AM EST 11/14/2024 10:27 AM EST us Waldo Soler MD LAB BLOOD ORDERABLES Final Resul t [facility] [address] [place] [address], documented in this encounter Visit Diagnoses Diagnosis Hemiplegia and hemiparesis following cerebral infarction affecting left non- dominant side (CMS/HCC V24, CMS/HCC V28) documented in this encounter Care Teams Dinkey Driver Relationship Specialty Start Date End Date Waldo Soler MD [address] [place] [address], [phone] PCP - General Family Medicine 10/17/24 documented as of this encounter
--- OUTSIDE RECORDS SUMMARY | 2025-10-12 15:40 | XMS_ITS | Encounter Summary ---
Author Organization [facility] Address [address] [place] [address] Care Team Providers Care User Experience Lead Name Role Phone Waldo Soler MD Primary Care Provider [phone] Encounter Details Date Type Department Care Team (Late st Contact Info) Description 11/26/[address] [facility] - Main Lab [address] [place] [address] Waldo Soler MD [address] [place] [address] [address] [place], [address] Hemiplegia and hemiparesis following cerebral infarction [...] mmol/L LAB CHEMISTRY METHOD 11/28/2024 9:54 AM [facility] Potassium 4.9 3.5 - 5.5 mmol/L LAB CHEMISTRY METHOD 11/28/2024 9:54 AM [facility] Chloride 105 96 - 110 mmol/L LAB CHEMISTRY METHOD 11/28/2024 9:54 AM [facility] CO2 31 21 - 32 mmol/L LAB CHEMISTRY METHOD 11/28/2024 9:54 AM [facility] Anion Gap 3 3 - 11 LAB CHEMISTRY METHOD 11/28/2024 9:54 AM [facility] Glucose 76 70 - 100 mg/dL LAB CHEMISTRY METHOD 11/28/2024 9:54 AM [facility] BUN 12 5 - 25 mg/dL LAB CHEMISTRY METHOD 11/28/2024 9:54 AM [facility] Creatinine 0.96 0.70 - 1.30 mg/dL LAB CHEMISTRY METHOD 11/28/2024 9:54 AM [facility] eGFR 84 >=60 mL/min/1. 73m2 LAB CHEMISTRY METHOD 11/28/2024 9:54 AM [facility] Comment:Calculation based on the Chronic Kidney Disease Epidemiology Collaboration (CKD-EPI) equation refit without adjustment for race. BUN/Creatinine Ratio 12.5 LAB CHEMISTRY METHOD 11/28/2024 9:54 AM [facility] Calcium 9.2 8.5 - 10.5 mg/dL LAB CHEMISTRY METHOD 11/28/2024 9:54 AM [facility] AST (SGOT) 27 10 - 42 unit/L LAB CHEMISTRY METHOD 11/28/2024 9:54 AM [facility] ALT (SGPT) 39 10 - 60 unit/L LAB CHEMISTRY METHOD 11/28/2024 9:54 AM [facility] Alkaline Phosphatase 74 42 - 121 unit/L LAB CHEMISTRY METHOD 11/28/2024 9:54 AM [facility] Total Protein 6.5 6.0 - 8.0 g/dL LAB CHEMISTRY METHOD 11/28/2024 9:54 AM EST [facility] Albumin 3.2 3.2 - 5.0 g/dL LAB CHEMISTRY METHOD 11/28/2024 9:54 AM [facility] Total Bilirubin 0.6 0.0 - 1.4 mg/dL LAB CHEMISTRY METHOD 11/28/2024 9:54 AM EST [facility] Blood Venous blood specimen / Unknown Venipuncture / Unknown 11/28/2024 5:36 AM EST 11/28/2024 8:31 AM EST us Waldo Soler MD LAB BLOOD ORDERABLES Final Resul t [facility] [address] [place] [address], * (ABNORMAL) Complete blood count (11/28/2024 5:36 AM EST) WBC 5.7 4.8 - 10.8 K/mcL LAB HEMETOLOGY METHOD 11/28/2024 9:19 AM [facility] RBC 4.40(L) 4.50 - 5.50 M/mcL LAB HEMETOLOGY METHOD 11/28/2024 9:19 AM [facility] Hemoglobin 13.4(L) 13.5 - 17.5 g/dL LAB HEMETOLOGY METHOD 11/28/2024 9:19 AM [facility] Hematocrit 41.8(L) 42.0 - 54.0 % LAB HEMETOLOGY METHOD 11/28/2024 9:19 AM [facility] MCV 94.4 79.0 - 98.0 FL LAB HEMETOLOGY METHOD 11/28/2024 9:19 AM [facility] MCH 30.2 27.0 - 32.0 pcg LAB HEMETOLOGY METHOD 11/28/2024 9:19 AM EST [facility] MCHC 32.1 32.0 - 37.0 g/dL LAB HEMETOLOGY METHOD 11/28/2024 9:19 AM EST [facility] RDW 12.5 11.0 - 15.0 % LAB HEMETOLOGY METHOD 11/28/2024 9:19 AM [facility] Platelets 242 130 - 400 K/mcL LAB HEMETOLOGY METHOD 11/28/2024 9:19 AM EST [facility] MPV 10.1 7.0 - 11.0 FL LAB HEMETOLOGY METHOD 11/28/2024 9:19 AM EST [facility] NRBC 0.0 <1.0 % LAB HEMETOLOGY METHOD 11/28/2024 9:19 AM [facility] NRBC Absolute 0.00 <0.10 K/mcL LAB HEMETOLOGY METHOD 11/28/2024 9:19 AM [facility] Blood Venous blood specimen / Unknown Venipuncture / Unknown 11/28/2024 5:36 AM EST 11/28/2024 8:31 AM EST us Waldo Soler MD LAB BLOOD ORDERABLES Final Resul t [facility] [address] [place] [address], documented in this encounter Visit Diagnoses Diagnosis Hemiplegia and hemiparesis following cerebral infarction affecting left non- dominant side (CMS/HCC V24, CMS/HCC V28) documented in this encounter Care Teams User Experience Lead Relationship Specialty Start Date End Date Waldo Soler MD [address] [place] [address], [phone] PCP - General Family Medicine 10/17/24 documented as of this encounter
--- OUTSIDE RECORDS SUMMARY | 2025-10-12 15:40 | XMS_ITS | Data Portability ---
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 Name Role Phone ABDULAZIZ JEREZ - 2ND [...] Right sided cerebral hemisphere cerebrovascula r accident [id number] Active 2023 PAUL Jack [address], [address], [place], [address], [facility] [employer] 4 16:09:07 Harmful pattern of use of alcohol 73877273 Active 2023 Latonya PAUL Silva [address], [address], [place], [address], [facility] [employer] 4 16:12:41 Essential hypertension 53456029 Active 2023 Latonya LaureanoHANNY kerrP [address], [address], [place], [address], [facility] [employer] 4 16:12:51 Nicotine dependence 11841663 Active 2023 PAUL Jack [address], [address], [place], [address], [facility] 4 16:13:24 Hyperlipidemia 73210542 Active 2023 PAUL Jack [address], [address], [place], [address], [facility] 4 16:39:55 Chronic constipation 559530633 Active 2023 PAUL Jack [address], [address], [place], [address], [facility] 4 16:40:09 At increased risk for falls 131855788 Active 2023 PAUL Jack [address], [address], [place], [address], [facility] 4 16:47:48 Minimal cognitive impairment 103285223 Active 2023 Yesenia Razo MD [address] [facility], [address], [place], [address], [facility] 4 21:50:33 Problem Notes None recorded. Procedures Surgical History Date Name Laterality Status Provider Name and Address Organization Details Recorded Time placement of stent in cardiac conduit completed PAUL Jack [address], [address], [place], [address], [facility] 10/15/2024 16:53:32 Imaging Results None recorded. [...] % 132/70 mm[Hg] YENI JO NP [address], [place], [address], [facility] 5 16:37:40 Date Recorded Body height Heart rate Respiratory rate Body temperature Oxygen saturation Oxygen saturation in Arterial blood by Pulse oximetry Systolic And Diastolic Provider Name and Address Organization Details Last Updated DateTime 5 166.37 cm 77 /min 18 /min 98 [degF] 98 % 98 % 122/60 mm[Hg] YENI JO NP [address] [facility], [address], [place], [address], [facility] 5 10:54:09 Date Recorded Body height Body weight Heart rate Respiratory rate Body temperature Oxygen saturation Oxygen saturation in Arterial blood by Pulse oximetry Systolic And Diastolic Provider Name and Address Organization Details Last Updated DateTime 5 166.37 cm 74469.7 5 g 77 /min 18 /min 98 [degF] 96 % 96 % 122/60 mm[Hg] Mary Bettencourt NP [address] [facility], [address], [place], [address], [facility] 5 17:53:42 Date Recorded Body height Body mass index (BMI) Body weight Heart rate Respiratory rate Body temperature Oxygen saturation Oxygen saturation in Arterial blood by Pulse oximetry Systolic And Diastolic Provider Name and Address Organization Details Last Updated DateTime 5 166.37 cm 22.6 kg/m2 72462.7 5 g 81 /min 18 /min 98.2 [degF] 96 % 96 % 124/56 mm[Hg] Mary Bettencourt NP [address] [facility], [address], [place], [address], [facility] 5 15:52:29 Date Recorded Body height Body mass index (BMI) Body weight Heart rate Respiratory rate Body temperature Oxygen saturation Oxygen saturation in Arterial blood by Pulse oximetry Systolic And Diastolic Provider Name and Address Organization Details Last Updated DateTime 5 166.37 cm 22.6 kg/m2 65322.7 5 g 81 /min 18 /min 98.2 [degF] 96 % 96 % 124/56 mm[Hg] Mary Bettencourt NP [address] [facility], [address], [place], [address], [facility] 5 11:15:21 Social History Question Answer Notes LastModified by Organizat ion Details LastModified Time Tobacco Smoking Status Current Every Day Smoker he says he smokes more when he's drinking, less when he's not. Yesenia Razo MD [address], [address], [place], [address], [facility] 10/18/2024 21:47:16 Do You Have An Advance [...] Do You Have A Medical Power Of Telephone Service Representative? Yes Has HCP [email or web address] Information not available 10/18/2024 What Was The [...] anxious, or unable to sleep at night)? [id number] Information not available 10/15/2024 Family History Nothing Reported Notes:n/c Medical History No medical history recorded. Past Encounters Encounter ID Performer Location Encounter Start Date Encounter Closed Date Diagnosis/Indication Diagnosis SNOMED-CT Code Diagnosis ICD10 Code Diagnosis IMO Codes Diagnosis Note [id number] ANNIE LANE PA-C [address] [address] 10/15/2024 15:54:03 10/18/2024 10:22:43 Right sided cerebral hemisphere cerebrovascular accident 524435974 I63.421 PT, OT and speech. clopidogre l 75 mg daily. Aspirin 81 mg daily Supportive care, Hyperlipidemia 57136736 E78.49 Atorvastat in 80 mg daily Essential hypertension 09358203 I10 Lisinopril 2.5 mg daily. Monitor labs and VSS Chronic constipation 236 812817 K59.09 Miralax 17 gms in liquid daily. Colace 100 mg BID senna 17.2 mg qhs prn Harmful pa ttern of use of alcohol 20540126 F10.10 supportive care. Naltrexone 50 mg daily. Nicotine dependence 5629 4008 F17.210 consider nicotine patch prn. At [facility] ed risk for falls 584302819 Z91.81 PT and OT. Fall precaution s in place. [id number] Yesenia Razo MD [address] [address] 10/18/2024 18:11:41 10/19/2024 08:47:56 Right sided cerebral hemisphere cerebrovascular accident 645366237 I63.421 Recovering slowly.Con tinue clopidogre l 75 mg qd, ASA 81 mg qd and atorvastat in 80 mg qd.Needs PT/OT for strengthen ing, balance, gait training, safety and function.C dawoodinue fall precaution s.Monitor for safety. Essential hypertension 97449249 I10 BP in good control since here.Audie nue lisinopril 2.5 mg qd.Monitor BP and labs. Chronic constipation 236 721374 K59.09 Continue bowel meds as ordered.Mo nitor bowel function. Harmful pa ttern of use of alcohol 12514001 F10.10 Continue naltrexone 50 mg qd.Contine u to encourage abstinence . Nicotine dependence 5629 4008 F17.210 Continue nicotine patch 7 mg qd.Encoura ge cessation. At [facility] ed risk for falls 285274975 Z91.81 PT/OT as above.Safe ty measures in place. Minimal co gnitive impairment 613757278 R41.89 Mildly impaired, but able to make his own decisions. Monitor and provide supportive care. [id number] [facility] [address] 10/21/2024 13:49:08 10/24/2024 10:32:20 Right sided cerebral hemisphere cerebrovascular accident 589073275 I63.421 Recovering slowly. remains max assist due to left sided weaknessCo ntinueclop idogrel 75 mg qd, ASA 81 mg qd and atorvastat in 80 mg qd.Needs PT/OT for strengthen ing, balance, gait training, safety and function.C ontinue fall precaution s.Monitor for safety. Essential hypertension 67166251 I10 BP in good control since here.Audie nuelisinop ril 2.5 mg qd.Monitor BP and labs. Chronic constipation 236 644297 K59.09 Continue bowel meds as ordered.Mo nitor bowel function. Harmful pa ttern of use of alcohol 75325920 F10.10 Continuena ltrexone 50 mg qd.continu e to encourage abstinence . advised nips of etoh should not be brought in Nicotine dependence 5629 4008 F17.210 Continueni cotine patch 7 mg qd.Encoura ge cessation. At [facility] ed risk for falls 092674732 Z91.81 PT/OT as above.supp ortive carewalker with max assistance Safety measures in place. Minimal co gnitive impairment 738234977 R41.89 Mildly impaired, but able to make his own decisions. Monitor and provide supportive care. 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 0752863047 4110527 L89.152 pt with pressure denuded area to right buttockvit c 500 mg qd to help with healing at requesttri ad paste bid and prnpressur e relief to coccyx area turn and reposition cushion to chairwound team to follow [id number] Yesenia aRzo MD [address] [address] 10/25/2024 17:28:16 04/26/2025 15:40:30 Right sided cerebral hemisphere cerebrovascular accident 252083944 I63.421 Continues to recover slowly.Con tinue clopidogre l 75 mg qd, ASA 81 mg qd and atorvastat in 80 mg qd.Continu e PT/OT for strengthen ing, balance, gait training, safety and function.C ontinue fall precaution s.Monitor for safety.[facility] if pt will be able to manage living alone anymore. Essential hypertension 80301019 I10 BP not in [facility] since 10/16Conti nue lisinopril 2.5 mg qd.Monitor BP and labs.BP ordered for daily Chronic constipation 236 066320 K59.09 Continue bowel meds as ordered.Mo nitor bowel function. Harmful pa ttern of use of alcohol 89135772 F10.10 Continue naltrexone 50 mg qd.It sounds like SO is an enabler, wanting to bring him EtOH while here.Audie nue to encourage abstinence . Nicotine dependence 5629 4008 F17.210 Nicotine patch d/c'd as he wants to continue to smoke.Cont inue to encourage cessation. At [facility] risk for falls 322327173 Z91.81 PT/OT as above.Safe ty measures in place. Minimal co gnitive impairment 127457449 R41.89 Mildly impaired, but able to make his own decisions. Monitor and provide supportive care. Pressure i njury of coccygeal region of back stage II 6268555096 7788550 L89.152 Continue wound care as ordered.Mo mike for healing. Pain in left foot 134407 0644 48708 M79.672 Continue elevation and diclofenac gel 1% topically to left foot bid and TID prn for painMonito r [id number] Mary Bettencourt NP [place] [address] [place] [address] 11/03/2024 09:12:32 11/04/2024 11:27:14 Right sided cerebral hemisphere cerebrovascular accident 303422038 I63.421 Continues to recover slowly but left sided weakness seems to be improving from 10/15, still max 2 assistCont inueclopid ogrel 75 mg qd, ASA 81 mg qd and atorvastat in 80 mg qd.Continu e PT/OT for strengthen ing, balance, gait training, safety and function.C ontinue fall precaution s.Monitor for safety.[facility] if pt will be able to manage living alone anymore. Essential hypertension 06886275 I10 BP stable 126/72 on 5Contin uelisinopr il 2.5 mg qd.Monitor BP and labs.BP ordered for daily Chronic constipation 236 732724 K59.09 Continue bowel meds as ordered.Mo mike bowel function. Harmful pa ttern of use of alcohol 75831637 F10.10 Continuena ltrexone 50 mg qd.reitera te with SO/ no etoh can be brought in, she requires frequent reminders and encouragem ent for good careContin ue to encourage abstinence . Nicotine dependence 5629 4008 F17.210 Nicotine patch d/c'd as he wants to continue to smoke.Cont inue to encourage cessation. currently smoking At [facility] risk for falls 823845914 Z91.81 PT/OT as above.Safe ty measures in place. Minimal co gnitive impairment 721832813 R41.89 Mildly impaired, but able to make his own decisions. Monitor and provide supportive care. Pressure i njury of coccygeal region of back stage II 9615776625 5390698 L89.152 not seen todayConti nue wound care as ordered.Mo nitor for healing. Pain in left foot 849750 1039 10707 M79.672 Continue elevation and diclofenac gel 1% topically to left foot bid and TID prn for painimprov ing and no complaints todayMonit or Inter[employer] 40008947 L30. 4 with small closed red area to left inner thighchang e briefs frequently antifungal cream bid and prnhydroco rtisone cream 1% bid and prn itchingmon itor for resolution , very mild [id number] YENI JO NP [address] [address] 11/10/2024 11:47:06 11/11/2024 14:31:03 Right sided cerebral hemisphere cerebrovascular accident 562655370 I63.421 Continues to recover slowly, left sided weakness seems to be improvingC ontinue clopidogre l 75 mg qd, ASA 81 mg qd and atorvastat in 80 mg qd.Continu e PT/OT for strengthen ing, balance, gait training, safety and function.C ontinue fall precaution s.Monitor for safety.[facility] if pt will be able to manage living alone anymore. At [facility] risk for falls 664809274 Z91.81 PT/OT as above.Safe ty measures in place. Intertrigo 14820082 L30. 4 with small closed red area to left inner thighchang e briefs frequently antifungal cream bid and prnhydroco rtisone cream 1% bid and prn itchingmon itor for resolution , very mild Minimal co gnitive impairment 372725698 R41.89 Mildly impaired, but able to make his own decisions. Monitor and provide supportive care. Essential hypertension 44949812 I10 Continue lisinopril 2.5 mg qd.Monitor BP and labs. Chronic constipation 236 894087 K59.09 Continue bowel meds as ordered.Mo mike bowel function. Pressure i njury of coccygeal region of back stage II 9533866482 5131549 L89.152 Continue wound care as ordered, pressure relief, nutritionR efer to Wound PA-C in house for eval and tx.Monitor for healing. Pain in left foot 890957 7620 70117 M79.672 Continue elevation and diclofenac gel 1% topically to left foot bid and TID prn for painimprov ing and no complaints todayMonit or Harmful pa ttern of use of alcohol 90161427 F10.10 Continuena ltrexone 50 mg qd.jocy campa with SO/ no etoh can be brought in, she requires frequent reminders and encouragem ent for good careContin ue to encourage abstinence . Nicotine dependence 5629 4008 F17.210 Nicotine patch d/c'd as he wants to continue to smoke.Cont inue to encourage cessation. currently smoking Depressive disorder 8908 9007 F32.A Seen by Psych PA-C -Remeron 7.5 mg qs added to helpw with mood, sleep, and appetite. [id number] Mary Bettencourt NP [facility] [address] 11/17/2024 15:35:25 11/17/2024 17:58:17 Right sided cerebral hemisphere cerebrovascular accident 141028752 I63.421 Continues to recover slowly, left sided weakness seems to be improving with therapyCon tinueclopi dogrel 75 mg qd, ASA 81 mg qd and atorvastat in 80 mg qd.PT/OT for strengthen ing, balance, gait training, safety and function.C ontinue fall precaution s.Monitor for safety.[facility] if pt will be able to manage living alone anymore. At [facility] risk for falls 380609617 Z91.81 PT/OT as above.Safe ty measures in place. Intertrigo 96852946 L30. 4 resolvedwi th small closed red area to left inner thighchang e briefs frequently antifungal cream bid and prnhydroco rtisone cream 1% bid and prn itchingmon itor for resolution , very mild Minimal co gnitive impairment 057694966 R41.89 Mildly impaired, but able to make his own decisions. Monitor and provide supportive care. Essential hypertension 79866697 I10 Continueli sinopril 2.5 mg qd.Monitor BP and labs. Chronic constipation 236 336752 K59.09 Continue bowel meds as ordered.Mo nitor bowel function. Pressure i njury of coccygeal region of back stage II 0556599860 8709716 L89.152 Continue wound care as ordered, pressure relief, nutritionR efer to Wound PA-C in house for eval and tx.nutriti onal shakes daily and prnMonitor for healing. Pain in left foot 916463 5574 20893 M79.672 resolvedCo ntinue elevation and diclofenac gel 1% topically to left foot bid and TID prn for painimprov ing and no complaints todayMonit or Harmful pa ttern of use of alcohol 29539292 F10.10 Continuena ltrexone 50 mg qd.jocy te with SO/ no etoh can be brought in, she requires frequent reminders and encouragem ent for good careContin ue to encourage abstinence . Nicotine dependence 5629 4008 F17.210 Nicotine patch d/c'd as he wants to continue to smoke.Cont inue to encourage cessation. currently smoking Depressive disorder 0608 9007 F32.A contRemero n 7.5 mg qs added to help with mood, sleep, and appetite last weekmonito r weights. [id number] Mary Bettencourt NP [facility] [address] [address] 11/18/2024 10:38:03 11/21/2024 14:25:49 Falls 398411062 R29.6 vitals stable and no injuries noted from fall 11/18PT/OT as above.Safe ty measures in place.pt aware of need to call for help to transfermo nitor [id number] Mary Bettencourt NP [facility] [address] 12/09/2024 12:22:30 12/13/2024 09:29:41 Falls 369229134 R29.6 vitals stable and no injuries noted from fall 11/18, no falls sincePT/OT as above.Safe ty measures in place.pt aware of need to call for help to transfermo nitor Right side d cerebral hemisphere cerebrovascular accident 900713398 I63.421 Continues to recover slowly, left sided [...] his /sig other with help him At [facility] risk for falls 152859994 Z91.81 PT/OT as above.Safe ty measures in place. Minimal co gnitive impairment 942274420 R41.89 Mildly impaired, but able to make his own decisions. Monitor and provide supportive care.seems to overestima te his abilities at this time Essential hypertension 61269299 I10 bp stableCont inuelisino pril 2.5 mg qd.Monitor BP and labs. Harmful pa ttern of use of alcohol 95070332 F10.10 Continuena ltrexone 50 mg qd.reitera te with SO/ no etoh can be brought in, she requires frequent reminders and encouragem ent for good careContin ue to encourage abstinence . Nicotine dependence 5629 4008 F17.210 continues to smoke.Cont inue to encourage cessation. currently smoking Depressive disorder 3015 9387 F32.A contRemero n 7.5 mg qhsmonitor weights appetitie and sleep [id number] Mayr Bettencourt, POLO [facility] [address] [address] 12/15/2024 13:36:22 12/16/2024 15:22:16 Right sided cerebral hemisphere cerebrovascular accident 392661747 I63.421 Continues to recover from CVAwith left sided weakness improving with therapy and making gainsConti nueclopido grel 75 mg qdASA 81 mg qdatorvast atin 80 mg qd.PT/OT for strengthen ing, balance, gait training, safety and function.C ontinue fall precaution s.Monitor for safety.anjelica farris pt will not be able to manage living alone anymore at this timehe is hoping his /sig other with help him Falls 271882493 R29.6 PT/OT as above.Safe ty measures in place.pt aware of need to call for help to transfermo nitor Minimal co gnitive impairment 299437708 R41.89 Mildly impaired, but able to make his own decisions. Monitor and provide supportive care.seems to overestima te his abilities at this time Essential hypertension 26389556 I10 bp stableCont inuelisino pril 2.5 mg qd.Monitor BP and labs. Depressive disorder 7142 9947 F32.A contRemero n 7.5 mg qhsmonitor weights appetite and sleep Asthenia 59425088 R53.1 with notable left sided weakness from CVAPT OT for strength, safety, gait training, balance, rom, etc...praful rowe for progress [id number] Waldo Soler MD [facility] [address] [address] 12/21/2024 10:33:46 12/22/2024 11:04:28 Right sided cerebral hemisphere cerebrovascular accident 765791959 I63.421 slow improvemen t in left sided deficit post CVAcontinu e with therapymon itor fall riskgoal is home with servicesmo nitor need for increased services in community vs need to transition to LTClipitor 80 mg qdasa 81 mg qdplavix 75 mg qdcontinue d Essential hypertension 80212653 I10 lisinopril 2.5 mg qdmonitor bp and need to titrate Chronic constipation 236 176532 K59.09 continued on bowel medsmonito r for effect Minimal co gnitive impairment 685383586 R41.89 carrying dxappears stable at baselinemo nitor level of insight [id number] Mary Bettencourt NP [facility] [address] [address] 12/30/2024 09:32:33 01/02/2025 15:11:04 Right sided cerebral hemisphere cerebrovascular accident 916238890 I63.421 slow improvemen t in left sided deficit post CVAcontinu e with therapymon itor fall riskgoal is home with servicesSO reports she will work with social worker psychiatric to set up pcp-report s she would like help (note she was working on this over 1.5 months ago and still hasnt called)lip itor 80 mg qdasa 81 mg qdplavix 75 mg qdmonitor need for increased services in community vs need to transition to LTC Essential hypertension 23026166 I10 lisinopril 2.5 mg qdmonitor bp and need to titrate Chronic constipation 236 122230 K59.09 continued on bowel medsmonito r for effect Minimal co gnitive impairment 787916599 R41.89 carrying dxappears stable at baselinemo nitor level of insight Asthenia 53302745 R53.1 with notable left sided weakness from CVAPT OT for strength, safety, gait training, balance, rom, etc...praful rowe for progress [id number] YENI JO NP [facility] [address] [address] 01/04/2025 16:36:57 01/06/2025 13:22:06 Right sided cerebral hemisphere cerebrovascular accident I63.421 slow improvemen t in left sided deficit post CVAcontinu e with therapymon itor fall riskgoal is home with servicesSO reports she will work with social worker psychiatric to set up pcp-report s she would like help (note she was working on this over 1.5 months ago and still hasnt called)lip itor 80 mg qdasa 81 mg qdplavix 75 mg qdmonitor need for increased services in community vs need to transition to LTC Essential hypertension 98330369 I10 VSSContinu e lisinopril 2.5 mg qdmonitor bp and need to titrate Chronic constipation 236 220916 K59.09 continued bowel medsmonito r GI status Minimal co gnitive impairment 588085390 R41.89 carrying dxappears stable at baselinemo nitor level of insight Lipoma of skin 780543542 D17.30 posterior left earlobe - 1 cm, raised, soft, non tender.Leah pecting lipoma/clover ign cyst.Famil y reassured, but will continue to monitor for any change and refer to Derm if concerns. [id number] YENI JO NP [facility] [address] [address] 01/11/2025 09:20:41 01/12/2025 13:47:19 Lipoma of skin 608176385 D17.30 posterior left earlobe - 1 cm, raised, soft, non tender.Leah pecting lipoma/clover ign cyst.Famil y reassured, but will continue to monitor for any change and refer to Derm if concerns. Right side d cerebral hemisphere cerebrovascular accident 765753321 I63.421 slow improvemen t in left sided deficit post CVAcontinu e with therapymon itor fall riskgoal is home with services, /SO getting things in place in anticipati on for discharge. Continue:l ipitor 80 mg qdasa 81 mg qdplavix 75 mg qdmonitor need for increased services in community vs need to transition to LTC Essential hypertension 54810199 I10 VSSContinu e lisinopril 2.5 mg qdmonitor bp and need to titrateLas t K 5.2, repeat BMP Chronic constipation 236 371692 K59.09 continued bowel medsmonito r GI status Minimal co gnitive impairment 739069552 R41.89 carrying dxappears stable at baselinemo nitor level of insight [id number] Mary Bettencourt NP [facility] [address] [address] 01/16/2025 16:39:58 01/17/2025 15:39:01 Right sided cerebral hemisphere cerebrovascular accident 744889456 I63.421 slow improvemen t in left sided [...] vs need to transition to LTC At [facility] risk for falls 968524132 Z91.81 PT/OT as above.Safe ty measures in place. [id number] Mary Bettencourt NP [facility] [address] [address] 01/19/2025 15:51:47 01/20/2025 16:20:47 Lipoma of skin 242913958 D17.30 pt with likely simple cyst vs lipoma to left posterior eararea drained with white thick exudate and serosangen ous drainage.w neri with ns, pat dry, bacitracin and clean dry dsg dailydue to good amount of drainge will cover with abx for likely infection2 bactrim DS po bid x 7 daysprobio tic 1 tab po bid x 10 days [id number] Mary Bettencourt NP [facility] [address] [address] 01/20/2025 11:14:42 01/24/2025 09:39:45 Lipoma of skin 543870471 D17.30 pt with likely simple cyst vs [...] Right side d cerebral hemisphere cerebrovascular accident 078993051 I63.421 slow improvemen t in left sided deficit post CVAcontinu e with therapy prnmonitor fall riskgoal is home with services, /SO getting things in placeConti nue:lipito r 80 mg qdasa 81 mg qdplavix 75 mg qd01/16 scripts written for wheelchair , walker, and bed for homesocial work setting up services and pcp outptfu with pcp outpt Essential hypertension [id number] I10 stableCont inue lisinopril 2.5 mg qdmonitor bp and need to titratefu with pcp outpt Chronic constipation [id number] K59.09 continued bowel medsmonito r GI status outpt with pcp Minimal co gnitive impairment [id number] R41.89 carrying dx, able to voice concerns appropriat elyappears stable at baselinemo nitor level of insight outpt with pcp Asthenia [id number] R53.1 with notable left sided weakness from CVAPT OT for strength, safety, gait training, balance, rom, etc...prn outptmonit or for progress outpt with pcp [place] [id number] R29.6 PT/OT as above.Safe ty measures in place.pt aware of need to call for help to transfermo nitor Depressive disorder [id number] F32.A contRemero n 7.5 mg qhsmonitor outpt with pcp Harmful pa ttern of use of alcohol [id number] F10.10 Continuena ltrexone 50 mg qd.Continu e [...] ID Guarantor Name 01/04/2025 1 MEDICARE B-[place]: [employer] Klaus Zamora [id number] Klaus Zamora 01/04/2025 2 [place]: [facility] Klaus Zamora [id number] Klaus Zamora Notes Date Note Type Note [...] in bed. alert, NAD, in good spirits.Per NON DESTRUCTIVE TESTING TECHNICIAN there are no concerns or issues presently. [...] CVAs. Full code YENI JO NP [address] [facility], [address], [place], [address], [facility] 01/04/2025 16:56:32 01/11/2025 text/html Klaus is seen [...] and new CVAs. Full code YENI JO, TIN POT OPERATOR [address] [facility], [address], [place], [address], [facility] [employer] 01/11/2025 11:03:27 01/16/2025 text/html Klaus is seen [...] him to her house. Coordinated care with social worker psychiatric and script for bed, wheelchair, and walker written and given today. 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 SO plans on getting tub/chair from [facility] [place]. On exam, pt is in bed, alert and NAD. He is asking when he can go home and states he is ready. He denies any complaints at this time. No new concerns from nursing. Full code Mary Bettencourt, POLO [address] [facility], [address], [place], [address], [facility] [employer] 01/16/2025 18:00:25 01/19/2025 text/html Klaus is seen [...] is resolved. of note: Coordinated care with social worker psychiatric and script for bed, wheelchair, and walker written for on 01/16. 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 [facility]. On exam, pt is in bed, alert and NAD. Full code Mary Bettencourt NP [address] [facility], [address], [place], [address], [employer] 01/19/2025 16:10:07 01/20/2025 text/html Klaus is seen today for a discharge visit. 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 While here at [facility]:Klaus continues to work with rehab, making [...] for appetite and mood. Coordinated care with social worker psychiatric and script for bed, wheelchair, and walker written for on 01/16. 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 SO plans [facility]. Overall, he has done well with therapy and mostly uneventful stay here. Multiple conversations with SO/patient had while here about need to get pcp. sugar mill worker has been helping with this. On exam, pt is in bed, alert and NAD. He remains with left sided weakness, however improved since here with therapy. He remains with need for assistance with adls at home. Full code Mary Bettencourt NP [address] [facility], [address], [place], [address], [employer] 01/20/2025 11:39:51
--- OUTSIDE RECORDS SUMMARY | 2025-10-12 15:40 | XMS_ITS | Encounter Summary ---
Author Organization [facility] Address [address] [place] [address] Care Team Providers Care Brine Well Operator Name Role Phone Waldo Soler MD Primary Care Provider [phone] Encounter Details Date Type Department Care Team (Late st Contact Info) Description 12/16/2024 Lab Requisition [facility] - Main Lab [address] [place] [address] Waldo Soler MD [address] [place] [address] [address] [place], [address] Hemiplegia and hemiparesis following cerebral infarction [...] AM EST) WBC 6.1 4.8 - 10.8 K/[facility] LAB HEMETOLOGY METHOD 12/19/2024 11:13 AM EST [facility] LAB RBC 4.50 4.50 - 5.50 M/[facility] LAB HEMETOLOGY METHOD 12/19/2024 11:13 AM EST [facility] LAB Hemoglobin 13.6 13.5 - 17.5 g/dL LAB HEMETOLOGY METHOD 12/19/2024 11:13 AM [facility] LAB Hematocrit 42.5 42.0 - 54.0 % LAB HEMETOLOGY METHOD 12/19/2024 11:13 AM [facility] LAB MCV 93.8 79.0 - 98.0 FL LAB HEMETOLOGY METHOD 12/19/2024 11:13 AM [facility] LAB MCH 30.0 27.0 - 32.0 pcg LAB HEMETOLOGY METHOD 12/19/2024 11:13 AM [facility] LAB MCHC 32.0 32.0 - 37.0 g/dL LAB HEMETOLOGY METHOD 12/19/2024 11:13 AM [facility] LAB RDW 12.6 11.0 - 15.0 % LAB HEMETOLOGY METHOD 12/19/2024 11:13 AM [facility] LAB Platelets 211 130 - 400 K/mcL LAB HEMETOLOGY METHOD 12/19/2024 11:13 AM [facility] LAB MPV 10.2 7.0 - 11.0 FL LAB HEMETOLOGY METHOD 12/19/2024 11:13 AM [facility] LAB NRBC 0.0 <1.0 % LAB HEMETOLOGY METHOD 12/19/2024 11:13 AM [facility] LAB NRBC Absolute 0.00 <0.10 K/mcL LAB HEMETOLOGY METHOD 12/19/2024 11:13 AM [facility] LAB Blood Venous blood specimen / Unknown Venipuncture / Unknown 12/19/2024 5:16 AM EST 12/19/2024 9:58 AM EST us Waldo Soler MD LAB BLOOD ORDERABLES Final Resul t [facility] LAB [address] [place] [address], documented in this encounter Visit Diagnoses Diagnosis Hemiplegia and hemiparesis following cerebral infarction affecting left non- dominant side (CMS/HCC V24, CMS/HCC V28) documented in this encounter Care Teams Brine Well Operator Relationship Specialty Start Date End Date Waldo Soler MD [address] [place] [address], [phone] PCP - General Family Medicine 10/17/24 documented as of this encounter
--- OUTSIDE RECORDS SUMMARY | 2025-10-12 15:40 | XMS_ITS | Clinical Summary ---
Author Organization [employer] Address [address] [facility] 7[address] [place] [address] Care Team Providers Care Stocking Inspector Name Role Phone Unavailable Primary Care Provider [...] ars (1 of 2 - PCV) 1971 RSV Patients and Pa tients Aged 60 years or older (1 - Risk 50-74 years 1-dose series) 2002 Zoster Vaccines (1 of 2) 2002 Dental Oral Exam 12/18/2024 06/16/2024 Tobacco Screening [...] Recently Relevant to Health Maintenance Insurance MEDICARE [facility] STANDARD DENTAL - HSN FULL (MEDICAID)
--- OUTSIDE RECORDS SUMMARY | 2025-10-12 15:40 | XMS_ITS | Encounter Summary ---
Author Organization [facility] Address [address] [place] [address] Care Team Providers Care Patient Scheduling Coordinator Name Role Phone Waldo Soler MD Primary Care Provider [phone] Encounter Details Date Type Department Care Team (Late st Contact Info) Description 01/09/2025 Lab Requisition [facility] - Main Lab [address] [facility] [place] [address] Waldo Soler MD 38 [facility] [address] [place], [address] Hemiplegia and hemiparesis following cerebral infarction [...] V28) documented in this encounter Care Teams Patient Scheduling Coordinator Relationship Specialty Start Date End Date Waldo Soler MD 38 [facility] [address] [place], [address] PCP - General Family Medicine 10/17/24 documented as of this encounter
--- OUTSIDE RECORDS SUMMARY | 2025-10-12 15:40 | XMS_ITS | Encounter Summary ---
Author Organization [facility] Address [address] [place] [address] Care Team Providers Care Poising Inspector Name Role Phone Waldo Soler MD Primary Care Provider [phone] Encounter Details Date Type Department Care Team (Late st Contact Info) Description 12/30/2024 Lab Requisition [facility] - Main Lab [address] [facility] [place] [address] Waldo Soler MD 38 [facility] [address] [place], [address] Hemiplegia and hemiparesis following cerebral infarction [...] V28) documented in this encounter Care Teams Poising Inspector Relationship Specialty Start Date End Date Waldo Soler MD 38 [facility] [address] [place], [address] PCP - General Family Medicine 10/17/24 documented as of this encounter
--- OUTSIDE RECORDS SUMMARY | 2025-10-12 15:40 | XMS_ITS | Encounter Summary ---
Author Organization [facility] Address [address] [place] [address] Care Team Providers Care Sponsorship Manager Name Role Phone Waldo Soler MD Primary Care Provider [phone] Encounter Details Date Type Department Care Team (Late st Contact Info) Description 11/05/2024 Lab Requisition [facility] - Main Lab 299 [facility] [place] [address] Waldo Soler MD [address] [place] [address] 204 [place], [address] Hemiplegia and hemiparesis following cerebral infarction [...] mmol/L LAB CHEMISTRY METHOD 11/07/2024 10:16 AM [facility] LAB Potassium 4.6 3.5 - 5.5 mmol/L LAB CHEMISTRY METHOD 11/07/2024 10:16 AM [facility] LAB Chloride 104 96 - 110 mmol/L LAB CHEMISTRY METHOD 11/07/2024 10:16 AM [facility] LAB CO2 30 21 - 32 mmol/L LAB CHEMISTRY METHOD 11/07/2024 10:16 AM [facility] LAB Anion Gap 5 3 - 11 LAB CHEMISTRY METHOD 11/07/2024 10:16 AM [facility] LAB Glucose 70 70 - 100 mg/dL LAB CHEMISTRY METHOD 11/07/2024 10:16 AM [facility] LAB BUN 15 5 - 25 mg/dL LAB CHEMISTRY METHOD 11/07/2024 10:16 AM [facility] LAB Creatinine 1.00 0.70 - 1.30 mg/dL LAB CHEMISTRY METHOD 11/07/2024 10:16 AM [facility] LAB eGFR 80 >=60 mL/min/1. 73m2 LAB CHEMISTRY METHOD 11/07/2024 10:16 AM [facility] LAB Comment:Calculation based on the Chronic Kidney Disease Epidemiology Collaboration (CKD-EPI) equation refit without adjustment for race. BUN/Creatinine Ratio 15.0 LAB CHEMISTRY METHOD 11/07/2024 10:16 AM [facility] LAB Calcium 9.2 8.5 - 10.5 mg/dL LAB CHEMISTRY METHOD 11/07/2024 10:16 AM [facility] LAB AST (SGOT) 34 10 - 42 unit/L LAB CHEMISTRY METHOD 11/07/2024 10:16 AM [facility] LAB ALT (SGPT) 63(H) 10 - 60 unit/L LAB CHEMISTRY METHOD 11/07/2024 10:16 AM [facility] LAB Alkaline Phosphatase 79 42 - 121 unit/L LAB CHEMISTRY METHOD 11/07/2024 10:16 AM [facility] LAB Total Protein 6.7 6.0 - 8.0 g/dL LAB CHEMISTRY METHOD 11/07/2024 10:16 AM EST [facility] LAB Albumin 3.4 3.2 - 5.0 g/dL LAB CHEMISTRY METHOD 11/07/2024 10:16 AM [facility] LAB Total Bilirubin 0.4 0.0 - 1.4 mg/dL LAB CHEMISTRY METHOD 11/07/2024 10:16 AM EST [facility] LAB Blood Venous blood specimen / Unknown Venipuncture / Unknown 11/07/2024 5:30 AM EST 11/07/2024 9:22 AM EST us Waldo Soler MD LAB BLOOD ORDERABLES Final Resul t [facility] LAB [address] [place] [address], * (ABNORMAL) Complete blood count (11/07/2024 5:30 AM EST) WBC 6.2 4.8 - 10.8 K/mcL LAB HEMETOLOGY METHOD 11/07/2024 9:48 AM [facility] LAB RBC 4.80 4.50 - 5.50 M/mcL LAB HEMETOLOGY METHOD 11/07/2024 9:48 AM [facility] LAB Hemoglobin 14.4 13.5 - 17.5 g/dL LAB HEMETOLOGY METHOD 11/07/2024 9:48 AM [facility] LAB Hematocrit 45.3 42.0 - 54.0 % LAB HEMETOLOGY METHOD 11/07/2024 9:48 AM [facility] LAB MCV 94.8 79.0 - 98.0 FL LAB HEMETOLOGY METHOD 11/07/2024 9:48 AM [facility] LAB MCH 30.1 27.0 - 32.0 pcg LAB HEMETOLOGY METHOD 11/07/2024 9:48 AM EST [facility] LAB MCHC 31.8(L) 32.0 - 37.0 g/dL LAB HEMETOLOGY METHOD 11/07/2024 9:48 AM [facility] LAB RDW 12.2 11.0 - 15.0 % LAB HEMETOLOGY METHOD 11/07/2024 9:48 AM [facility] LAB Platelets 268 130 - 400 K/mcL LAB HEMETOLOGY METHOD 11/07/2024 9:48 AM EST [facility] LAB MPV 10.2 7.0 - 11.0 FL LAB HEMETOLOGY METHOD 11/07/2024 9:48 AM [facility] LAB NRBC 0.0 <1.0 % LAB HEMETOLOGY METHOD 11/07/2024 9:48 AM [facility] LAB NRBC Absolute 0.00 <0.10 K/mcL LAB HEMETOLOGY METHOD 11/07/2024 9:48 AM [facility] LAB Blood Venous blood specimen / Unknown Venipuncture / Unknown 11/07/2024 5:30 AM EST 11/07/2024 9:25 AM EST us Waldo Soler MD LAB BLOOD ORDERABLES Final Resul t [facility] LAB [address] [place] [address], documented in this encounter Visit Diagnoses Diagnosis Hemiplegia and 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
--- OUTSIDE RECORDS SUMMARY | 2025-10-12 15:40 | XMS_ITS | Encounter Summary ---
Author Organization [facility] Address [address] [place] [address] Care Team Providers Care Die Cast Operator Name Role Phone Waldo Soler MD Primary Care Provider [phone] Encounter Details Date Type Department Care Team (Late st Contact Info) Description 10/21/2024 Lab Requisition [facility] - Main Lab [address] [facility] [place] [address] Waldo Soler MD [address] [place] [address] [address] [facility] [address] Hemiplegia and hemiparesis following cerebral infarction [...] mmol/L LAB CHEMISTRY METHOD 10/24/2024 11:26 AM [facility] LAB Potassium 4.5 3.5 - 5.5 mmol/L LAB CHEMISTRY METHOD 10/24/2024 11:26 AM [facility] LAB Chloride 101 96 - 110 mmol/L LAB CHEMISTRY METHOD 10/24/2024 11:26 AM [facility] LAB CO2 31 21 - 32 mmol/L LAB CHEMISTRY METHOD 10/24/2024 11:26 AM [facility] LAB Anion Gap 6 3 - 11 LAB CHEMISTRY METHOD 10/24/2024 11:26 AM [facility] LAB Glucose 65(L) 70 - 100 mg/dL LAB CHEMISTRY METHOD 10/24/2024 11:26 AM [facility] LAB BUN 21 5 - 25 mg/dL LAB CHEMISTRY METHOD 10/24/2024 11:26 AM [facility] LAB Creatinine 1.18 0.70 - 1.30 mg/dL LAB CHEMISTRY METHOD 10/24/2024 11:26 AM [facility] LAB eGFR 66 >=60 mL/min/1. 73m2 LAB CHEMISTRY METHOD 10/24/2024 11:26 AM [facility] LAB Comment:Calculation based on the Chronic Kidney Disease Epidemiology Collaboration (CKD-EPI) equation refit without adjustment for race. BUN/Creatinine Ratio 17.8 LAB CHEMISTRY METHOD 10/24/2024 11:26 AM [facility] LAB Calcium 9.3 8.5 - 10.5 mg/dL LAB CHEMISTRY METHOD 10/24/2024 11:26 AM [facility] LAB AST (SGOT) 29 10 - 42 unit/L LAB CHEMISTRY METHOD 10/24/2024 11:26 AM [facility] LAB ALT (SGPT) 33 10 - 60 unit/L LAB CHEMISTRY METHOD 10/24/2024 11:26 AM [facility] LAB Alkaline Phosphatase 93 42 - 121 unit/L LAB CHEMISTRY METHOD 10/24/2024 11:26 AM [facility] LAB Total Protein 7.0 6.0 - 8.0 g/dL LAB CHEMISTRY METHOD 10/24/2024 11:26 AM EST [facility] LAB Albumin 3.6 3.2 - 5.0 g/dL LAB CHEMISTRY METHOD 10/24/2024 11:26 AM [facility] LAB Total Bilirubin 0.6 0.0 - 1.4 mg/dL LAB CHEMISTRY METHOD 10/24/2024 11:26 AM [facility] LAB Blood Venous blood specimen / Unknown Venipuncture / Unknown 10/24/2024 6:44 AM EST 10/24/2024 10:09 AM EST us Waldo Soler MD LAB BLOOD ORDERABLES Final Resul t [facility] LAB [address] [place] [address], * Complete blood count (10/24/2024 6:44 AM EST) WBC 7.3 4.8 - 10.8 K/mcL LAB HEMETOLOGY METHOD 10/24/2024 10:40 AM [facility] LAB RBC 4.90 4.50 - 5.50 M/mcL LAB HEMETOLOGY METHOD 10/24/2024 10:40 AM [facility] LAB Hemoglobin 14.9 13.5 - 17.5 g/dL LAB HEMETOLOGY METHOD 10/24/2024 10:40 AM [facility] LAB Hematocrit 45.8 42.0 - 54.0 % LAB HEMETOLOGY METHOD 10/24/2024 10:40 AM [facility] LAB MCV 92.9 79.0 - 98.0 FL LAB HEMETOLOGY METHOD 10/24/2024 10:40 AM [facility] LAB MCH 30.2 27.0 - 32.0 pcg LAB HEMETOLOGY METHOD 10/24/2024 10:40 AM EST [facility] LAB MCHC 32.5 32.0 - 37.0 g/dL LAB HEMETOLOGY METHOD 10/24/2024 10:40 AM EST [facility] LAB RDW 12.3 11.0 - 15.0 % LAB HEMETOLOGY METHOD 10/24/2024 10:40 AM [facility] LAB Platelets 303 130 - 400 K/mcL LAB HEMETOLOGY METHOD 10/24/2024 10:40 AM [facility] LAB MPV 10.1 7.0 - 11.0 FL LAB HEMETOLOGY METHOD 10/24/2024 10:40 AM [facility] LAB NRBC 0.0 <1.0 % LAB HEMETOLOGY METHOD 10/24/2024 10:40 AM [facility] LAB NRBC Absolute 0.00 <0.10 K/mcL LAB HEMETOLOGY METHOD 10/24/2024 10:40 AM [facility] LAB Blood Venous blood specimen / Unknown Venipuncture / Unknown 10/24/2024 6:44 AM EST 10/24/2024 10:13 AM EST us Waldo Soler MD LAB BLOOD ORDERABLES Final Resul t [facility] LAB [address] [place] [address], documented in this encounter Visit Diagnoses Diagnosis Hemiplegia and hemiparesis following cerebral infarction affecting left non- dominant side (CMS/HCC V24, CMS/HCC V28) documented in this encounter Care Teams Die Cast Operator Relationship Specialty Start Date End Date Waldo Soler MD [address] [place] [address], [phone] PCP - General Family Medicine 10/17/24 documented as of this encounter
--- OUTSIDE RECORDS SUMMARY | 2025-10-12 15:40 | XMS_ITS | Encounter Summary ---
Author Organization [facility] Address [address] [place] [address] Care Team Providers Care Pad Hand Name Role Phone Waldo Soler MD Primary Care Provider [phone] Encounter Details Date Type Department Care Team (Late st Contact Info) Description 12/09/2024 Lab Requisition [facility] - Main Lab [address] [place] [address] Waldo Soler MD [address] [place] [address] [address] [place], [address] Hemiplegia and hemiparesis following cerebral infarction [...] mmol/L LAB CHEMISTRY METHOD 12/12/2024 10:45 AM [facility] LAB Potassium 5.2 3.5 - 5.5 mmol/L LAB CHEMISTRY METHOD 12/12/2024 10:45 AM [facility] LAB Chloride 103 96 - 110 mmol/L LAB CHEMISTRY METHOD 12/12/2024 10:45 AM [facility] LAB CO2 30 21 - 32 mmol/L LAB CHEMISTRY METHOD 12/12/2024 10:45 AM [facility] LAB Anion Gap 4 3 - 11 LAB CHEMISTRY METHOD 12/12/2024 10:45 AM [facility] LAB Glucose 65(L) 70 - 100 mg/dL LAB CHEMISTRY METHOD 12/12/2024 10:45 AM [facility] LAB BUN 12 5 - 25 mg/dL LAB CHEMISTRY METHOD 12/12/2024 10:45 AM [facility] LAB Creatinine 1.02 0.70 - 1.30 mg/dL LAB CHEMISTRY METHOD 12/12/2024 10:45 AM [facility] LAB eGFR 78 >=60 mL/min/1. 73m2 LAB CHEMISTRY METHOD 12/12/2024 10:45 AM [facility] LAB Comment:Calculation based on the Chronic Kidney Disease Epidemiology Collaboration (CKD-EPI) equation refit without adjustment for race. BUN/Creatinine Ratio 11.8 LAB CHEMISTRY METHOD 12/12/2024 10:45 AM [facility] LAB Calcium 8.8 8.5 - 10.5 mg/dL LAB CHEMISTRY METHOD 12/12/2024 10:45 AM [facility] LAB AST (SGOT) 15 10 - 42 unit/L LAB CHEMISTRY METHOD 12/12/2024 10:45 AM [facility] LAB ALT (SGPT) 30 10 - 60 unit/L LAB CHEMISTRY METHOD 12/12/2024 10:45 AM [facility] LAB Alkaline Phosphatase 70 42 - 121 unit/L LAB CHEMISTRY METHOD 12/12/2024 10:45 AM [facility] LAB Total Protein 6.4 6.0 - 8.0 g/dL LAB CHEMISTRY METHOD 12/12/2024 10:45 AM EST [facility] LAB Albumin 3.2 3.2 - 5.0 g/dL LAB CHEMISTRY METHOD 12/12/2024 10:45 AM [facility] LAB Total Bilirubin 0.4 0.0 - 1.4 mg/dL LAB CHEMISTRY METHOD 12/12/2024 10:45 AM EST [facility] LAB Blood Venous blood specimen / Unknown Venipuncture / Unknown 12/12/2024 5:13 AM EST 12/12/2024 9:31 AM EST us Waldo Soler MD LAB BLOOD ORDERABLES Final Resul t [facility] LAB [address] [place] [address], * (ABNORMAL) Complete blood count (12/12/2024 5:13 AM EST) WBC 6.1 4.8 - 10.8 K/mcL LAB HEMETOLOGY METHOD 12/12/2024 10:11 AM [facility] LAB RBC 4.40(L) 4.50 - 5.50 M/mcL LAB HEMETOLOGY METHOD 12/12/2024 10:11 AM [facility] LAB Hemoglobin 13.1(L) 13.5 - 17.5 g/dL LAB HEMETOLOGY METHOD 12/12/2024 10:11 AM [facility] LAB Hematocrit 40.9(L) 42.0 - 54.0 % LAB HEMETOLOGY METHOD 12/12/2024 10:11 AM [facility] LAB MCV 93.2 79.0 - 98.0 FL LAB HEMETOLOGY METHOD 12/12/2024 10:11 AM [facility] LAB MCH 29.8 27.0 - 32.0 pcg LAB HEMETOLOGY METHOD 12/12/2024 10:11 AM EST [facility] LAB MCHC 32.0 32.0 - 37.0 g/dL LAB HEMETOLOGY METHOD 12/12/2024 10:11 AM [facility] LAB RDW 12.4 11.0 - 15.0 % LAB HEMETOLOGY METHOD 12/12/2024 10:11 AM [facility] LAB Platelets 241 130 - 400 K/mcL LAB HEMETOLOGY METHOD 12/12/2024 10:11 AM [facility] LAB MPV 10.5 7.0 - 11.0 FL LAB HEMETOLOGY METHOD 12/12/2024 10:11 AM [facility] LAB NRBC 0.0 <1.0 % LAB HEMETOLOGY METHOD 12/12/2024 10:11 AM [facility] LAB NRBC Absolute 0.00 <0.10 K/mcL LAB HEMETOLOGY METHOD 12/12/2024 10:11 AM [facility] LAB Blood Venous blood specimen / Unknown Venipuncture / Unknown 12/12/2024 5:13 AM EST 12/12/2024 9:31 AM EST us Waldo Soler MD LAB BLOOD ORDERABLES Final Resul t [facility] LAB [address] [place] [address], documented in this encounter Visit Diagnoses Diagnosis Hemiplegia and hemiparesis following cerebral infarction affecting left non- dominant side (CMS/HCC V24, CMS/HCC V28) documented in this encounter Care Teams Pad Hand Relationship Specialty Start Date End Date Waldo Soler MD [address] [place] [address], [phone] PCP - General Family Medicine 10/17/24 documented as of this encounter
--- OUTSIDE RECORDS SUMMARY | 2025-10-12 15:40 | XMS_ITS | Encounter Summary ---
Author Organization [facility] Address [address] [place] [address] Care Team Providers Care Ring Maker Name Role Phone Waldo Soler MD Primary Care Provider [phone] Encounter Details Date Type Department Care Team (Late st Contact Info) Description 01/15/2025 Lab Requisition [facility] - Main Lab 299 [facility] [place] [address] Waldo Soler MD 38 [facility] [address] [place], [address] Hemiplegia and hemiparesis following cerebral infarction [...] V28) documented in this encounter Care Teams Ring Maker Relationship Specialty Start Date End Date Waldo Soler MD [address] [facility] [address] [place], [address] PCP - General Family Medicine 10/17/24 documented as of this encounter
--- OUTSIDE RECORDS SUMMARY | 2025-10-12 15:40 | XMS_ITS | Clinical Summary ---
Author Organization LL [address] [place] [address] Address [address] [place] [address] Phone Care Team Providers Care Small Arms Repairer Name Role Phone Waldo Soler MD Primary Care Provider [phone] Social History Tobacco Use Types Packs/Day Years Used Date Smoking Tobacco: Never Assessed Sex and Gender Information Value Date Recorded Sex Assigned at Not on file Legal Sex Male 7:25 AM EST Gender Identity Not on file Sexual Orientation Not on file Plan of Treatment Health Maintenance Due Date Last Done Comments Colorectal Cancer Screening: Colonoscopy 1952 DTaP,Tdap,and Td Vaccines (1 - Tdap) 1971 Pneumococcal Vaccine: 50+ Ye ars (1 of 1 - PCV) 2002 Zoster Vaccines (1 of 2) 2002 Abdominal Aortic Aneurysm (A AA) Screen 10/17/2024 Cholesterol Screening (Lipid Panel) 10/17/2024 Falls Risk Assessment 10/17/2024 Hepatitis C Screening 10/17/2024 Medicare Annual Wellness Visit 10/17/2024 Social Influencers of Health Screening 10/17/2024 Depression Screening 11/30/2024 COVID-19 Vaccine (1 - 2024-2 6 season) 2025 Influenza Vaccine (#1) 2025 RSV [...] Insurance MEDICAID - [place] MEDICARE Care Teams Small Arms Repairer Relationship Specialty Start Date End Date Waldo Soler MD [address] [place] [address] [address] [place], [phone] PCP - General Family Medicine 10/17/24
--- OUTSIDE RECORDS SUMMARY | 2025-10-12 15:40 | XMS_ITS | Encounter Summary ---
Author Organization [facility] Address [address] [place] [address] Care Team Providers Care Visual Artist Name Role Phone Waldo Soler MD Primary Care Provider [phone] Encounter Details Date Type Department Care Team (Late st Contact Info) Description 10/28/2024 Lab Requisition [facility] - Main Lab [address] [place] [address] Waldo Soler MD [address] [place] [address] [address] [place], [phone] Hemiplegia and hemiparesis following cerebral infarction [...] mmol/L LAB CHEMISTRY METHOD 10/31/2024 9:09 AM [facility] Potassium 4.6 3.5 - 5.5 mmol/L LAB CHEMISTRY METHOD 10/31/2024 9:09 AM [facility] Chloride 101 96 - 110 mmol/L LAB CHEMISTRY METHOD 10/31/2024 9:09 AM [facility] CO2 30 21 - 32 mmol/L LAB CHEMISTRY METHOD 10/31/2024 9:09 AM [facility] Anion Gap 6 3 - 11 LAB CHEMISTRY METHOD 10/31/2024 9:09 AM [facility] Glucose 68(L) 70 - 100 mg/dL LAB CHEMISTRY METHOD 10/31/2024 9:09 AM [facility] BUN 13 5 - 25 mg/dL LAB CHEMISTRY METHOD 10/31/2024 9:09 AM [facility] Creatinine 0.97 0.70 - 1.30 mg/dL LAB CHEMISTRY METHOD 10/31/2024 9:09 AM [facility] eGFR 83 >=60 mL/min/1. 73m2 LAB CHEMISTRY METHOD 10/31/2024 9:09 AM [facility] Comment:Calculation based on the Chronic Kidney Disease Epidemiology Collaboration (CKD-EPI) equation refit without adjustment for race. BUN/Creatinine Ratio 13.4 LAB CHEMISTRY METHOD 10/31/2024 9:09 AM [facility] Calcium 9.2 8.5 - 10.5 mg/dL LAB CHEMISTRY METHOD 10/31/2024 9:09 AM [facility] AST (SGOT) 39 10 - 42 unit/L LAB CHEMISTRY METHOD 10/31/2024 9:09 AM [facility] ALT (SGPT) 54 10 - 60 unit/L LAB CHEMISTRY METHOD 10/31/2024 9:09 AM [facility] Alkaline Phosphatase 86 42 - 121 unit/L LAB CHEMISTRY METHOD 10/31/2024 9:09 AM [facility] Total Protein 6.6 6.0 - 8.0 g/dL LAB CHEMISTRY METHOD 10/31/2024 9:09 AM [facility] Albumin 3.4 3.2 - 5.0 g/dL LAB CHEMISTRY METHOD 10/31/2024 9:09 AM [facility] Total Bilirubin 0.6 0.0 - 1.4 mg/dL LAB CHEMISTRY METHOD 10/31/2024 9:09 AM [facility] Blood Venous blood specimen / Unknown Venipuncture / Unknown 10/31/2024 5:16 AM EST 10/31/2024 8:13 AM EST us Waldo Soler MD LAB BLOOD ORDERABLES Final Resul t [facility] [address] [place] [address], * Complete blood count (10/31/2024 5:16 AM EST) WBC 7.1 4.8 - 10.8 K/mcL LAB HEMETOLOGY METHOD 10/31/2024 8:30 AM [facility] RBC 4.60 4.50 - 5.50 M/mcL LAB HEMETOLOGY METHOD 10/31/2024 8:30 AM [facility] Hemoglobin 14.0 13.5 - 17.5 g/dL LAB HEMETOLOGY METHOD 10/31/2024 8:30 AM [facility] Hematocrit 43.7 42.0 - 54.0 % LAB HEMETOLOGY METHOD 10/31/2024 8:30 AM [facility] MCV 94.8 79.0 - 98.0 FL LAB HEMETOLOGY METHOD 10/31/2024 8:30 AM [facility] MCH 30.4 27.0 - 32.0 pcg LAB HEMETOLOGY METHOD 10/31/2024 8:30 AM EST [facility] MCHC 32.0 32.0 - 37.0 g/dL LAB HEMETOLOGY METHOD 10/31/2024 8:30 AM EST [facility] RDW 12.2 11.0 - 15.0 % LAB HEMETOLOGY METHOD 10/31/2024 8:30 AM [facility] Platelets 277 130 - 400 K/mcL LAB HEMETOLOGY METHOD 10/31/2024 8:30 AM EST [facility] MPV 10.2 7.0 - 11.0 FL LAB HEMETOLOGY METHOD 10/31/2024 8:30 AM EST [facility] NRBC 0.0 <1.0 % LAB HEMETOLOGY METHOD 10/31/2024 8:30 AM [facility] NRBC Absolute 0.00 <0.10 K/mcL LAB HEMETOLOGY METHOD 10/31/2024 8:30 AM [facility] Blood Venous blood specimen / Unknown Venipuncture / Unknown 10/31/2024 5:16 AM EST 10/31/2024 8:13 AM EST us Waldo Soler MD LAB BLOOD ORDERABLES Final Resul t [facility] [address] [place] [address], documented in this encounter Visit Diagnoses Diagnosis Hemiplegia and hemiparesis following cerebral infarction affecting left non- dominant side (CMS/HCC V24, CMS/HCC V28) documented in this encounter Care Teams Visual Artist Relationship Specialty Start Date End Date Waldo Soler MD [address] [place] [address], [phone] PCP - General Family Medicine 10/17/24 documented as of this encounter
--- OUTSIDE RECORDS SUMMARY | 2025-10-12 15:40 | XMS_ITS | Encounter Summary ---
Author Organization [facility] Address [address] [place] [address] Care Team Providers Care Containers Sales Representative Name Role Phone Waldo Soler MD Primary Care Provider [phone] Encounter Details Date Type Department Care Team (Late st Contact Info) Description 11/19/2024 Lab Requisition [facility] - Main Lab [address] [facility] [place] [address] Waldo Soler MD [address] [place] [address] [address] [place], [phone] Hemiplegia and hemiparesis following cerebral infarction [...] mmol/L LAB CHEMISTRY METHOD 11/21/2024 10:12 AM [facility] Potassium 5.5 3.5 - 5.5 mmol/L LAB CHEMISTRY METHOD 11/21/2024 10:12 AM [facility] Chloride 106 96 - 110 mmol/L LAB CHEMISTRY METHOD 11/21/2024 10:12 AM [facility] CO2 31 21 - 32 mmol/L LAB CHEMISTRY METHOD 11/21/2024 10:12 AM [facility] Anion Gap 2(L) 3 - 11 LAB CHEMISTRY METHOD 11/21/2024 10:12 AM [facility] Glucose 90 70 - 100 mg/dL LAB CHEMISTRY METHOD 11/21/2024 10:12 AM [facility] BUN 10 5 - 25 mg/dL LAB CHEMISTRY METHOD 11/21/2024 10:12 AM [facility] Creatinine 1.06 0.70 - 1.30 mg/dL LAB CHEMISTRY METHOD 11/21/2024 10:12 AM [facility] eGFR 75 >=60 mL/min/1. 73m2 LAB CHEMISTRY METHOD 11/21/2024 10:12 AM [facility] Comment:Calculation based on the Chronic Kidney Disease Epidemiology Collaboration (CKD-EPI) equation refit without adjustment for race. BUN/Creatinine Ratio 9.4 LAB CHEMISTRY METHOD 11/21/2024 10:12 AM [facility] Calcium 9.1 8.5 - 10.5 mg/dL LAB CHEMISTRY METHOD 11/21/2024 10:12 AM [facility] AST (SGOT) 27 10 - 42 unit/L LAB CHEMISTRY METHOD 11/21/2024 10:12 AM [facility] ALT (SGPT) 49 10 - 60 unit/L LAB CHEMISTRY METHOD 11/21/2024 10:12 AM [facility] Alkaline Phosphatase 75 42 - 121 unit/L LAB CHEMISTRY METHOD 11/21/2024 10:12 AM [facility] Total Protein 6.3 6.0 - 8.0 g/dL LAB CHEMISTRY METHOD 11/21/2024 10:12 AM [facility] Albumin 3.0(L) 3.2 - 5.0 g/dL LAB CHEMISTRY METHOD 11/21/2024 10:12 AM [facility] Total Bilirubin 0.3 0.0 - 1.4 mg/dL LAB CHEMISTRY METHOD 11/21/2024 10:12 AM [facility] Blood Venous blood specimen / Unknown Venipuncture / Unknown 11/21/2024 5:26 AM EST 11/21/2024 9:33 AM EST us Waldo Soler MD LAB BLOOD ORDERABLES Final Resul t [facility] [address] [place] [address], * (ABNORMAL) Complete blood count (11/21/2024 5:26 AM EST) WBC 5.8 4.8 - 10.8 K/mcL LAB HEMETOLOGY METHOD 11/21/2024 9:43 AM [facility] RBC 4.40(L) 4.50 - 5.50 M/mcL LAB HEMETOLOGY METHOD 11/21/2024 9:43 AM [facility] Hemoglobin 13.2(L) 13.5 - 17.5 g/dL LAB HEMETOLOGY METHOD 11/21/2024 9:43 AM [facility] Hematocrit 41.3(L) 42.0 - 54.0 % LAB HEMETOLOGY METHOD 11/21/2024 9:43 AM [facility] MCV 94.5 79.0 - 98.0 FL LAB HEMETOLOGY METHOD 11/21/2024 9:43 AM [facility] MCH 30.2 27.0 - 32.0 pcg LAB HEMETOLOGY METHOD 11/21/2024 9:[address] [facility] MCHC 32.0 32.0 - 37.0 g/dL LAB HEMETOLOGY METHOD 11/21/2024 9:43 AM [facility] RDW 12.4 11.0 - 15.0 % LAB HEMETOLOGY METHOD 11/21/2024 9:43 AM [facility] Platelets 225 130 - 400 K/mcL LAB HEMETOLOGY METHOD 11/21/2024 9:43 AM [facility] MPV 10.8 7.0 - 11.0 FL LAB HEMETOLOGY METHOD 11/21/2024 9:43 AM [facility] NRBC 0.0 <1.0 % LAB HEMETOLOGY METHOD 11/21/2024 9:43 AM [facility] NRBC Absolute 0.00 <0.10 K/mcL LAB HEMETOLOGY METHOD 11/21/2024 9:43 AM [facility] Blood Venous blood specimen / Unknown Venipuncture / Unknown 11/21/2024 5:26 AM EST 11/21/2024 9:33 AM EST us Waldo Soler MD LAB BLOOD ORDERABLES Final Resul t [facility] [address] [place] [address], documented in this encounter Visit Diagnoses Diagnosis Hemiplegia and hemiparesis following cerebral infarction affecting left non- dominant side (CMS/HCC V24, CMS/HCC V28) documented in this encounter Care Teams Containers Sales Representative Relationship Specialty Start Date End Date Waldo Soler MD [address] [place] [address], [phone] PCP - General Family Medicine 10/17/24 documented as of this encounter
== END ==
LOC: HO.CARD 12:31
PROVIDERS: Visit Provider Psychiatry & Neurology Neurology
DX: F01.B0 Vascular dementia, moderate, without behavioral disturbance, psychotic disturbance, mood disturbance, and anxiety (principal); I63.9 Cerebral infarction, unspecified
CPT/HCPCS: 93242

== ENCOUNTER → 2025-10-12 12:35 | Outpatient (BNV) | payer MEDICARE, MEDICAID, SELFPAY | PROVIDERS: Visit Provider Internal Medicine | DX: I49.3 Ventricular premature depolarization (principal); I49.49 Other premature depolarization | CPT/HCPCS: 93244 ==